=== PATIENT | male | born 1990 | race American Indian/Alaskan Native ===

== ENCOUNTER 2021-03-01 07:05 | Inpatient (IN) | payer OTHER ==
--- NOTE | 2021-03-01 07:38 | Emergency Department Report ---
ED Male HPI - General Stated complaint: groin pain Time Seen by Provider: 03/01/21 07:15 Source: patient Mode of arrival: Ambulatory Limitations: No Limitations - History of Present Illness Initial comments: 30-year-old male presents to the ER today with complaints of severe groin pain. Patient states that he thought he may have pulled a muscle about 2 weeks ago when he was moving something at work. He initially felt pain between his base of the penis and his rectum. He states since then the pain has gradually been getting worse to the point now that he is having difficulty ambulating and is unable to sit. He reports swelling, but is unable to tell if there is any b ruising or redness. He states that he has been having difficulty urinating where he has been having urgency, dysuria and decreased urinary output. He denies any hematuria. He denies any testicular pain or apparent testicular swelling. He denies any associate abdominal pain. He reports intermittent nausea but no vomiting. He does report constipation, he states that he has not had a bowel movement in 1 week. He states that he is not typically constipated typically has a bowel movement 1-2 times per day. He denies any fever at home or chills. Patient is obese, he denies any other significant past medical history. MD Complaint: groin pain -: week(s) (2) - Related Data Allergies Allergy/AdvReac Type Severity Reaction Status Date / Time No Known Allergies Allergy Unverified 03/01/21 07:42 ED Review of Systems ROS: Stated complaint: groin pain Other details as noted in HPI Comment: All other systems reviewed and negative Constitutional: denies: chills, fever ENT: denies: ear pain, throat pain Respiratory: denies: cough, shortness of breath, wheezing Cardiovascular: denies: chest pain, palpitations Gastrointestinal: nausea, constipation. denies: abdominal pain, vomiting, diarrhea, hematemesis, melena, hematochezia Genitourinary: urgency, dysuria, other (Groin pain/perineal pain). denies: frequency, hematuria, discharge, testicular pain Musculoskeletal: denies: back pain, joint swelling, arthralgia Skin: denies: rash, lesions, change in color, change in hair/nails, pruritus Neurological: denies: headache, weakness, numbness, paresthesias, confusion, abnormal gait, vertigo Psychiatric: denies: anxiety, depression, auditory hallucinations, visual hallucinations, homicidal thoughts, suicidal thoughts Hematological/Lymphatic: denies: easy bleeding, easy bruising ED Physical Exam - General General appearance: alert, in distress, obese - Head Head exam: Present: atraumatic, normocephalic, normal inspection - Eye Eye exam: Present: normal appearance, PERRL, EOMI Pupils: Present: normal accommodation - Neck Neck exam: Present: normal inspection, full ROM - Respiratory Respiratory exam: Present: normal lung sounds bilaterally. Absent: respiratory distress, wheezes, rales, rhonchi - Cardiovascular Cardiovascular Exam: Present: normal rhythm, tachycardia, normal heart sounds - GI/Abdominal GI/Abdominal exam: Present: soft. Absent: distended, tenderness, guarding, rebound, rigid - Rectal Rectal exam: Present: normal inspection, normal rectal tone, tenderness (Severe pain on MANNY, but no apparent mass, fluctuance or induration), other (Furniture Delivery Driver present). Absent: bloody stool, fecal impaction, hemorrhoids - exam: Present: normal inspection, other (Patient has significant tenderness to deep palpation in the perineal area, area is warm, slight erythema noted at the base of the buttocks, and around the perineal area, but no apparent induration or fluctuance.). Absent: testicular tenderness, urethral discharge, scrotal swelling, circumcision External exam: Absent: erythema, swelling, lesions, lacerations, ecchymosis, bleeding - Neurological Exam Neurological exam: Present: alert, oriented X3, CN II-XII intact, normal gait - Psychiatric Psychiatric exam: Present: normal affect, normal mood - Skin Skin exam: Present: intact ED Course Vital Signs 03/01/21 03/01/21 03/01/21 07:16 10:36 11:40 Temperature 100.4 F H Pulse Rate 128 H 92 H Respiratory 22 14 22 Rate Blood Pressure 157/94 O2 Sat by Pulse 95 98 Oximetry 03/01/21 03/01/21 03/01/21 11:46 12:00 12:16 Temperature Pulse Rate 92 H 91 H 88 Respiratory 21 23 22 Rate Blood Pressure 124/79 134/84 134/84 O2 Sat by Pulse 99 98 96 Oximetry 03/01/21 03/01/21 03/01/21 12:30 12:46 13:00 Temperature Pulse Rate 90 92 H 104 H Respiratory 21 21 11 L Rate Blood Pressure 134/84 O2 Sat by Pulse 97 96 98 Oximetry 03/01/21 03/01/21 03/01/21 13:16 13:30 13:46 Temperature Pulse Rate 92 H 89 99 H Respiratory 24 23 13 Rate Blood Pressure 162/100 162/100 O2 Sat by Pulse 97 95 96 Oximetry 03/01/21 13:51 Temperature 100.2 F H Pulse Rate Respiratory Rate Blood Pressure O2 Sat by Pulse Oximetry ED Medical Decision Making - Lab Data Result diagrams: 03/01/21 07:47 03/01/21 07:47 - Radiology Data Radiology results: report reviewed Patient: JOSE WEBSTER MR#: [id number] 0 : 1990 Acct:[id number] Age/Sex: 30 / M ADM Date: 03/01/21 Loc: ED Attending Dr: Ordering Physician: RADHA GILL Date of Service: 03/01/21 Procedure(s): CT abdomen pelvis w con Accession Number(s): [id number] cc: RADHA GILL CT ABDOMEN AND PELVIS WITH CONTRAST HISTORY: Severe perineal pain/cellulitis/infection omni 300 100ml . COMPARISON: None. TECHNIQUE: Helical CT images of the abdomen and pelvis were obtained following administration of intravenous contrast. Sagittal and coronal reformatted images were reviewed. All CT scans at this location are performed using CT dose reduction for ALARA by means of automated exposure control. CONTRAST: 100 ml of intravenous contrast administered. FINDINGS: Abdomen/pelvis: The entire perineum is not included in this exam which limits full evaluation. On the most inferior images, there is a fluid collection with subtle peripheral enhancement just below the prostate gland measuring 4.0 x 4.4 x 3.4 cm. It is unclear if this involves the inferior portion of the prostate gland. It appears to overlie the tract of the urethra. This presumably represents an abscess. There is no evidence for soft tissue gas in the perineum although the lower perineum is not included on this exam. The liver, biliary system, pancreas, spleen, kidneys, adrenal glands, vascular structures, bowel loops, appendix and bladder are unremarkable. Lungs/bones: No significant abnormality. IMPRESSION: 4.0 x 4.4 x 3.4 cm fluid collection in the midline perineum with close association to the base of the prostate gland and urethra which presumably represents an abscess. Signer Name: Alex Hair Jr, MD Signed: 03/01/2021 10:12 AM Workstation Name: [id number] Transcribed By: TTR Dictated By: ALEX HAIR JR, MD Electronically Authenticated By: ALEX HAIR JR, MD Signed Date/Time: 03/01/21 1012 DD/ 1008 TD/TT: - Medical Decision Making 1049: Reviewed --CBC shows mild leukocytosis with a white count of 12, but o therwise unremarkable. Lactic acid was normal. Blood cultures pending. CMP shows mild hyperglycemia of [address] abdomen pelvis with IV contrast shows - 4.0 x 4.4 x 3.4 cm fluid collection in the midline perineum with close association to the base of the prostate gland and urethra which presumably represents an abscess. Discussed case with Dr Sharp - Recommend consulting general surgeon first Patient reports that his pain is better after IV morphine, and he is currently getting his IV fluids and antibiotics; discussed all results with patient, and concerning findings on CT abdomen pelvis and informed patient that we will consult general surgeon to determine course of action. 1100: Discussed case with Dr. Mi, general surgeon on-call, given that absce ss is a close patient urethra and prostate, he recommend consulting urology first but he is willing to co-consult if needed. 1108: Called placed to Dr Brambila's group. Nurse at their office stated she will notify one of the doctors and will call us back. 1215: Discussed case with Dr. Baldwin, urologist on all for [facility], reviewed case including lab results and CT results in detail with him. He stated that it is not something that needs emergent drainage, and urine culture and recommend antibiotic treatment. 1232: Discussed case with Dr Fernández, Hospitalist, for admission. Discussed reason and plan for admission with patient. He expressed understanding of instructions and agreed with plan. Pt currently stable. Critical care attestation.: If time is entered above; I have spent that time in minutes in the direct care of this critically ill patient, excluding procedure time. ED Disposition Clinical Impression: Perineal abscess Disposition: [facility] Is pt being admited?: No Condition: Stable Referrals: PRIMARY CARE, [Primary Care Provider] - 3-5 Days
[2021-03-01] MEDS ORDERED: SODIUM CHLORIDE 0.9% 1000 ML IV SOLN IV ONE (07:44)
[2021-03-01] MEDS ORDERED: PIPERACIL/TAZOBACTA 4.5/NS 100 4.5 GM/100 ML VIAL IV ONE (07:44)
[2021-03-01] MEDS ORDERED: VANCOMYCIN 1,000 MG in SODIUM CHLORIDE 0.9% 500 ML 500 ML IV ONE (07:44)
[2021-03-01] MEDS ORDERED: ACETAMINOPHEN 500 MG TAB PO ONE (07:47)
[2021-03-01] MEDS ORDERED: MORPHINE 4 MG/1 ML INJ IV ONE (07:47)
[2021-03-01] MEDS ORDERED: ONDANSETRON 4 MG/2 ML INJ IV ONE (07:47)
[2021-03-01] MEDS ORDERED: VANCOMYCIN PHARMACY TO DOSE IV SCH ×2 (08:00→15:00)
[2021-03-01 08:13] LABS: Hematocrit 41.3 % (35.5-45.6); Hemoglobin 13.9 gm/dl (11.8-15.2); Mean Corpuscular HGB Conc 34 % (32-34); Mean Corpuscular Volume 89 fl (84-94); Platelet Count 289 K/mm3 (140-440); Red Blood Count 4.66 M/mm3 (3.65-5.03)
[2021-03-01 08:27] LABS: Bacteria,Urine 1+ /HPF (Negative); Bilirubin,Urine NEG (Negative); Blood,Urine MOD (Negative); Color,Urine Yellow (Yellow); Mucus,Urine FEW /HPF
[2021-03-01 08:37] LABS: Alanine Aminotransferase 26 units/L (7-56); Albumin 3.8 g/dL (3.9-5); BUN/Creatinine Ratio 11; Blood Urea Nitrogen 12 mg/dL (9-20); Calcium 9.2 mg/dL (8.4-10.2); Hemolysis Index 32
[2021-03-01] MEDS ORDERED: VANCOMYCIN/NS 1 GM/250 ML 1 GM/250 ML BAG IV NR (09:00)
[2021-03-01] MEDS ORDERED: VANCOMYCIN 2,000 MG in SODIUM CHLORIDE 0.9% 500 ML 500 ML IV ONE (09:00)
--- NOTE | 2021-03-01 10:16 | Cat Scan Report ---
CT ABDOMEN AND PELVIS WITH CONTRAST HISTORY: Severe perineal pain/cellulitis/infection omni 300 100ml . COMPARISON: None. TECHNIQUE: Helical CT images of the abdomen and pelvis were obtained following administration of intr avenous contrast. Sagittal and coronal reformatted images were reviewed. All CT scans at this [facility] are performed using CT dose reduction for ALARA by means of automated exposure control. CONTRAST: 100 ml of intravenous contrast administered. FINDINGS: Abdomen/pelvis: The entire perineum is not included in this exam which limits full evaluation. On th e most inferior images, there is a fluid collection with subtle peripheral enhancement just below the prostate gland measuring 4.0 x 4.4 x 3.4 cm. It is unclear if this involves the inferior portion of the prostate gland. It appears to overlie the tract of the urethra. This presumably represents an abs cess. There is no evidence for soft tissue gas in the perineum although the lower perineum is not inc luded on this exam. The liver, biliary system, pancreas, spleen, kidneys, adrenal glands, vascular structures, bowel loop s, appendix and bladder are unremarkable. Lungs/bones: No significant abnormality. IMPRESSION: 4.0 x 4.4 x 3.4 cm fluid collection in the midline perineum with close association to the base of the prostate gland and urethra which presumably represents an abscess. Signer Name: Alex Hair Jr, MD Signed: 03/01/2021 10:12 AM Workstation Name: [id number]
[2021-03-01] MEDS ORDERED: ALBUTEROL 2.5 MG/3 ML NEBU IH PRN (14:52)
[2021-03-01] MEDS ORDERED: ONDANSETRON 4 MG/2 ML INJ IV PRN (14:52)
[2021-03-01 14:56] LABS: Band Neutrophils # (Manual) 0.1 K/mm3; Total Cells Counted 100
[2021-03-01 14:57] LABS: Hypochromasia 1+; Platelet Estimate Consistent w Auto
--- NOTE | 2021-03-01 15:31 | History and Physical Report ---
History of Present Illness Chief complaint: I think I pulled something History of present illness: 30 YO Male with Super Morbid Obesity, Obesity Hypoventilation Syndrome presents to ED for evaluation. Patient reports I think I pulled something". Patient states that he has experienced pain at the base of his penis extending toward his rectum over the past 2 weeks with persistent and worsening symptoms over the same timeframe. Patient states that he was walking while carrying heavy packages and experienced a sudden onset of pain at the base of his penis. Patient transported to [facility] via private vehicle for further care and evaluation of the aforementioned symptoms. The patient was seen and evaluated in the em ergency department. All lab and imaging studies reviewed. Patient underwent CT scan of the abdomen and pelvis and was found to have a perineal abscess, urinary tract infection complicated by systemic inflammatory response syndrome. Surgical team consulted in ED. Urology team consulted in ED. Patient admitted to medical floor and initiated on IV antibiotic therapy. Patient denies fever, chills, chest pain, palpitation, shortness of breath, trauma, or known ill contacts, or known exposure to COVID-19. No prior admission for review. No medication listed at time of admission for reconciliation. Past History Past Medical History: other (See HPI) Past Surgical History: No surgical history, Other (Reviewed) Social history: single. denies: smoking, alcohol abuse, prescription drug abuse Family history: hypertension Medications and Allergies Allergies Allergy/AdvReac Type Severity Reaction Status Date / Time No Known Allergies Allergy Unverified 03/01/21 07:42 Active Meds: Active Medications Acetaminophen (Acetaminophen 325 Mg Tab) 650 mg PO Q4H PRN PRN Reason: Pain MILD(1-3)/Fever >100.5/ARREDONDO Albuterol (Albuterol 2.5 Mg/3 Ml Nebu) 2.5 mg IH Q4HRT PRN PRN Reason: Shortness Of Breath Hydromorphone HCl (Hydromorphone 1 Mg/1 Ml Inj) 0.5 mg IV Q12H PRN PRN Reason: Pain , Severe (7-10) Ceftriaxone Sodium (Rocephin/Ns 1 Gm/50 Ml) 1 gm in 50 mls @ 100 mls/hr IV Q12H MICKIE; Protocol Vancomycin HCl 1,500 mg/ (Sodium Chloride) 530 mls @ 265 mls/hr IV Q8H MICKIE Ondansetron HCl (Ondansetron 4 Mg/2 Ml Inj) 4 mg IV Q8H PRN PRN Reason: Nausea And Vomiting Oxycodone/Acetaminophen (Oxycodone /Acetaminophen 5-325mg Tab) 1 tab PO Q12H PRN PRN Reason: Pain, Moderate (4-6) Sodium Chloride (Sodium Chloride 0.9% 10 Ml Flush Syringe) 10 ml IV BID MICKEI Sodium Chloride (Sodium Chloride 0.9% 10 Ml Flush Syringe) 10 ml IV PRN PRN PRN Reason: LINE FLUSH Review of Systems Constitutional: no weight loss, no weight gain, no fever, no chills Ears, nose, mouth and throat: no ear pain, no ear discharge, no tinnitis, no nasal congestion Cardiovascular: no chest pain, no palpitations, no rapid/irregular heart beat, no edema, no lightheadedness Respiratory: no cough, no cough with sputum, no excessive sputum, no hemoptysis Gastrointestinal: no abdominal pain, no nausea, no vomiting, no diarrhea, no constipation Genitourinary Male: other (Pain at the base of penis) Rectal: no pain, no incontinence, no bleeding Musculoskeletal: no neck stiffness, no arm numbness/tingling, no low back pain, no shooting leg pain, no redness of joints Integumentary: no rash, no pruritis, no redness, no wounds, no jaundice Neurological: no head injury, no transient paralysis, no weakness, no parathesias, no tingling, no syncope Psychiatric: no anxiety, no memory loss, no insomnia, no hypersomnia Endocrine: no cold intolerance, no polyphagia, no excessive thirst, no polyuria, no nocturia, no flushing Hematologic/Lymphatic: no easy bruising, no lymphedema Allergic/Immunologic: no urticaria, no allergic rhinitis, no wheezing, no anaphylaxis Exam - Constitutional Vitals: Temp Pulse Resp BP Pulse Ox 100.2 F H 99 H 13 162/100 96 03/01/21 13:51 03/01/21 13:46 03/01/21 13:46 03/01/21 13:46 03/01/21 13:46 General appearance: Present: mild distress, obese - EENT Eyes: Present: PERRL ENT: hearing intact, clear oral mucosa - Neck Neck: Present: supple, normal ROM - Respiratory Respiratory effort: normal Respiratory: bilateral: CTA - Cardiovascular Heart Sounds: Present: S1 & S2. Absent: rub, click - Extremities Extremities: pulses symmetrical, No edema Peripheral Pulses: within normal limits - Abdominal General gastrointestinal: Present: soft, non-tender, non-distended, normal bowel sounds Male genitourinary: Present: normal - Integumentary Integumentary: Present: clear, warm, dry - Musculoskeletal Musculoskeletal: gait normal, strength equal bilaterally - Psychiatric Psychiatric: appropriate mood/affect, intact judgment & insight - Neurologic Neurologic: CNII-XII intact, moves all extremities Results - Labs CBC & Chem 7: 03/01/21 07:47 03/01/21 07:47 Labs: Abnormal lab results 03/01/21 03/01/21 03/01/21 Range/Units 07:47 07:47 07:55 WBC 12.9 H (4.5-11.0) K/mm3 RDW 13.0 L (13.2-15.2) % Seg Neutrophils # Man 8.4 H (1.8-7.7) K/mm3 Monocytes # (Manual) 0.9 H (0.0-0.8) K/mm3 Sodium 134 L (137-145) mmol/L Glucose 130 H (75-100) mg/dL Albumin 3.8 L (3.9-5) g/dL Urine WBC (Auto) 73.0 H (0.0-6.0) /HPF U Epithel Cells (Auto) 26.0 H (0-13.0) /HPF Assessment and Plan - Patient Problems (1) Perineal abscess Current Visit: Yes Status: Acute Plan to address problem: Surgery team consulted, urology team consulted. No surgical intervention at this time as per urology team. IV antibiotic therapy, further care and ev aluation as per urology team. (2) Obesity hypoventilation syndrome Current Visit: Yes Status: Acute Plan to address problem: Balanced diet, increase physical activity at discharge, outpatient pulmonary fo llow-up for sleep study, outpatient bariatric surgery follow-up. (3) UTI (urinary tract infection) Current Visit: Yes Status: Acute Qualifiers: Encounter type: initial encounter Plan to address problem: CBC, urinalysis, IV antibiotic therapy. (4) Systemic inflammatory response syndrome Current Visit: Yes Status: Acute Plan to address problem: CBC, CMP, urinalysis, IV antibiotic therapy, repeat CBC in a.m. (5) DVT prophylaxis Current Visit: Yes Status: Acute Plan to address problem: SCDs bilateral lower extremities while in bed, patient is ambulatory
[2021-03-01] MEDS: VANCOMYCIN 1,500 MG in SODIUM CHLORIDE 0.9% 500 ML 500 ML IV SCH (16:45)
[2021-03-01] MEDS: HYDROmorphone 1 MG/1 ML INJ IV PRN (17:06)
--- NOTE | 2021-03-01 17:31 | Consultation ---
History of Present Illness Consult date: 03/01/21 - History of present illness History of present illness: 30 yo male with a 2 week h/o slow progressive worsening of perineal pain. Past History Past Medical History: other (See HPI) Past Surgical History: No surgical history, Other (Reviewed) Social history: single. denies: smoking, alcohol abuse, prescription drug abuse Family history: hypertension Medications and Allergies Allergies Allergy/AdvReac Type Severity Reaction Status Date / Time No Known Allergies Allergy Unverified 03/01/21 07:42 Active Meds: Active Medications Acetaminophen (Acetaminophen 325 Mg Tab) 650 mg PO Q4H PRN PRN Reason: Pain MILD(1-3)/Fever >100.5/ARREDONDO Albuterol (Albuterol 2.5 Mg/3 Ml Nebu) 2.5 mg IH Q4HRT PRN PRN Reason: Shortness Of Breath Hydromorphone HCl (Hydromorphone 1 Mg/1 Ml Inj) 0.5 mg IV Q12H PRN PRN Reason: Pain , Severe (7-10) Last Admin: 03/01/21 17:06 Dose: 0.5 mg Documented by: Ceftriaxone Sodium (Rocephin/Ns 1 Gm/50 Ml) 1 gm in 50 mls @ 100 mls/hr IV Q12H MICKIE; Protocol Vancomycin HCl 1,500 mg/ (Sodium Chloride) 530 mls @ 265 mls/hr IV Q8H MICKIE Ondansetron HCl (Ondansetron 4 Mg/2 Ml Inj) 4 mg IV Q8H PRN PRN Reason: Nausea And Vomiting Oxycodone/Acetaminophen (Oxycodone /Acetaminophen 5-325mg Tab) 1 tab PO Q12H PRN PRN Reason: Pain, Moderate (4-6) Sodium Chloride (Sodium Chloride 0.9% 10 Ml Flush Syringe) 10 ml IV BID MICKIE Sodium Chloride (Sodium Chloride 0.9% 10 Ml Flush Syringe) 10 ml IV PRN PRN PRN Reason: LINE FLUSH Review of Systems All systems: negative (none) Exam Vital Signs Temp Pulse Resp BP Pulse Ox 100.4 F H 128 H 22 157/94 95 03/01/21 07:16 03/01/21 07:16 03/01/21 07:16 03/01/21 07:16 03/01/21 07:16 - General physical appearance Positive: well developed, well nourished, no distress - Eyes Positive: PERRL, normal occular movement - ENT Positive: normal pinna, normal nares, normal mucosa, no hearing loss, no congestion - Neck Positive: no masses, no bruits, trachea midline, no venous distension - Respiratory Positive: normal expansion, normal respiratory effort, clear to auscultation - Cardiovascular Rhythm: regular Heart Sounds: Present: S1 & S2. Absent: rub, click - Extremities Extremities: no ischemia, pulses symmetrical, No edema - Breasts Breasts: normal, no mass, no skin changes - Abdomen Abdomen: Present: soft, bowel sounds normal. Absent: tender, distended Hernia: none - Genitourinary Male Genitourinary: normal Female Genitourinary: normal - Rectum Rectum: other (Pt is somewhat tender in the perineal area but there is no evidence of an underlying abscess. No cellulitis or induration either.) - Integumentary no rash, no growths, no abnormal pigmentation - Neurologic Neurologic: alert and oriented to time, place and person, motor strength and sensation are grossly intact - Musculoskeletal normal gait, normal posture - Psychiatric Psychiatric: appropriate mood/affect, intact judgment & insight Results - Labs 03/01/21 07:47 03/01/21 07:47 Abnormal lab results 03/01/21 03/01/21 03/01/21 Range/Units 07:47 07:47 07:55 WBC 12.9 H (4.5-11.0) K/mm3 RDW 13.0 L (13.2-15.2) % Seg Neutrophils # Man 8.4 H (1.8-7.7) K/mm3 Monocytes # (Manual) 0.9 H (0.0-0.8) K/mm3 Sodium 134 L (137-145) mmol/L Glucose 130 H (75-100) mg/dL Albumin 3.8 L (3.9-5) g/dL Urine WBC (Auto) 73.0 H (0.0-6.0) /HPF U Epithel Cells (Auto) 26.0 H (0-13.0) /HPF Diabetes panel 03/01/21 Range/Units 07:47 Sodium 134 L (137-145) mmol/L Potassium 4.1 (3.6-5.0) mmol/L Chloride 98.4 (98-107) mmol/L Carbon Dioxide 24 (22-30) mmol/L BUN 12 (9-20) mg/dL Creatinine 1.1 (0.8-1.3) mg/dL Glucose 130 H (75-100) mg/dL Calcium 9.2 (8.4-10.2) mg/dL AST 25 (5-40) units/L ALT 26 (7-56) units/L Alkaline Phosphatase 107 (35-129) units/L Total Protein 7.9 (6.3-8.2) g/dL Albumin 3.8 L (3.9-5) g/dL Calcium panel 03/01/21 Range/Units 07:47 Calcium 9.2 (8.4-10.2) mg/dL Albumin 3.8 L (3.9-5) g/dL Pituitary panel 03/01/21 Range/Units 07:47 Sodium 134 L (137-145) mmol/L Potassium 4.1 (3.6-5.0) mmol/L Chloride 98.4 (98-107) mmol/L Carbon Dioxide 24 (22-30) mmol/L BUN 12 (9-20) mg/dL Creatinine 1.1 (0.8-1.3) mg/dL Glucose 130 H (75-100) mg/dL Calcium 9.2 (8.4-10.2) mg/dL Adrenal panel 03/01/21 Range/Units 07:47 Sodium 134 L (137-145) mmol/L Potassium 4.1 (3.6-5.0) mmol/L Chloride 98.4 (98-107) mmol/L Carbon Dioxide 24 (22-30) mmol/L BUN 12 (9-20) mg/dL Creatinine 1.1 (0.8-1.3) mg/dL Glucose 130 H (75-100) mg/dL Calcium 9.2 (8.4-10.2) mg/dL Total Bilirubin 0.80 (0.1-1.2) mg/dL AST 25 (5-40) units/L ALT 26 (7-56) units/L Alkaline Phosphatase 107 (35-129) units/L Total Protein 7.9 (6.3-8.2) g/dL Albumin 3.8 L (3.9-5) g/dL - Imaging CT scan - abdomen: report reviewed CT scan - pelvis: report reviewed Assessment and Plan - Patient Problems (1) Prostatic abscess Current Visit: Yes Status: Acute Plan to address problem: 1) Urological consult 2) If a urological consult cannot be obtained in this facility, I recommend that the pt be transferred to a facility where urological consultation can be obtained. 3) Broad spectrum IV antibiotics 4) Urine C&S
[2021-03-01] MEDS: cefTRIAXone/NS 1 GM/50 ML 1 GM/50 ML BAG IV SCH (20:22)
[2021-03-01] MEDS: oxyCODONE /ACETAMINOPHEN 5-325MG TAB PO PRN (20:29)
[2021-03-02] MEDS: VANCOMYCIN 1,500 MG in SODIUM CHLORIDE 0.9% 500 ML 500 ML IV SCH ×3 (01:15→21:05)
[2021-03-02] MEDS: HYDROmorphone 1 MG/1 ML INJ IV PRN ×3 (02:21→18:05)
[2021-03-02] MEDS: cefTRIAXone/NS 1 GM/50 ML 1 GM/50 ML BAG IV SCH (06:25)
[2021-03-02 10:22] LABS: Basophils % (Auto) 0.2 % (0.0-1.8); Eosinophils # (Auto) 0.1 K/mm3 (0.0-0.4); Hematocrit 33.5 % (35.5-45.6); Hemoglobin 11.2 gm/dl (11.8-15.2); Lymphocytes # (Auto) 1.7 K/mm3 (1.2-5.4); Lymphocytes % (Auto) 11.9 % (13.4-35.0); Mean Corpuscular HGB Conc 34 % (32-34); Mean Corpuscular Volume 90 fl (84-94); Monocytes # (Auto) 1.5 K/mm3 (0.0-0.8); Monocytes % (Auto) 10.8 % (0.0-7.3); Platelet Count 310 K/mm3 (140-440); Red Blood Count 3.73 M/mm3 (3.65-5.03); Red Cell Distribution Width 13.2 % (13.2-15.2)
[2021-03-02 10:44] LABS: BUN/Creatinine Ratio 8; Blood Urea Nitrogen 8 mg/dL (9-20); Calcium 8.5 mg/dL (8.4-10.2); Hemolysis Index 6
[2021-03-02] MEDS: ACETAMINOPHEN 325 MG TAB PO PRN ×3 (11:27→22:35)
--- NOTE | 2021-03-02 12:24 | Consultation ---
History of Present Illness - Reason for Consult Consult date: 03/02/21 perineal abscess Requesting physician: CARMELO BENJAMIN - History of Present Illness 30-year-old male with extreme morbid obesity, obesity hypoventilation syndrome was admitted to the hospital with pain in his groin and perineal region x [address] scan revealed a perineal abscess and possible prostatic abscess. General surgery and urology have been consulted. Infectious diseases was consulted for antibiotic management. Low-grade fever, leukocytosis present. Denies MSM behavior, no history of STDs. Heterosexual. Denies any similar infections in the past. Review of Systems: As per above Past History Past Medical History: other (See HPI) Past Surgical History: No surgical history, Other (Reviewed) Social history: single. denies: smoking, alcohol abuse, prescription drug abuse Family history: hypertension Medications and Allergies Allergies Allergy/AdvReac Type Severity Reaction Status Date / Time No Known Allergies Allergy Unverified 03/01/21 07:42 Active Meds: Active Medications Acetaminophen (Acetaminophen 325 Mg Tab) 650 mg PO Q4H PRN PRN Reason: Pain MILD(1-3)/Fever >100.5/ARREDONDO Last Admin: 03/02/21 11:27 Dose: 650 mg Documented by: Albuterol (Albuterol 2.5 Mg/3 Ml Nebu) 2.5 mg IH Q4HRT PRN PRN Reason: Shortness Of Breath Hydromorphone HCl (Hydromorphone 1 Mg/1 Ml Inj) 0.5 mg IV Q12H PRN PRN Reason: Pain , Severe (7-10) Last Admin: 03/02/21 11:39 Dose: 0.5 mg Documented by: Ceftriaxone Sodium (Rocephin/Ns 2 Gm/100 Ml) 2 gm in 100 mls @ 200 mls/hr IV Q24H MICKIE Vancomycin HCl 1,500 mg/ (Sodium Chloride) 530 mls @ 265 mls/hr IV Q8HR MICKIE Ondansetron HCl (Ondansetron 4 Mg/2 Ml Inj) 4 mg IV Q8H PRN PRN Reason: Nausea And Vomiting Last Admin: 03/01/21 20:29 Dose: 4 mg Documented by: Oxycodone/Acetaminophen (Oxycodone /Acetaminophen 5-325mg Tab) 1 tab PO Q12H PRN PRN Reason: Pain, Moderate (4-6) Last Admin: 03/01/21 20:29 Dose: 1 tab Documented by: Sodium Chloride (Sodium Chloride 0.9% 10 Ml Flush Syringe) 10 ml IV BID MICKIE Last Admin: 03/02/21 11:29 Dose: 10 ml Documented by: Sodium Chloride (Sodium Chloride 0.9% 10 Ml Flush Syringe) 10 ml IV PRN PRN PRN Reason: LINE FLUSH Physical Examination - Physical Exam Narrative exam: Physical Exam: Constitutional: Alert, cooperative. No acute distress. Extreme morbid obesity Head, Ears, Nose: Normocephalic, atraumatic. External ears, nose normal Eyes: Conjunctivae/corneas clear. No icterus. No ptosis. Neck: Supple, no meningeal signs Cardiovascular: S1, S2 + Respiratory: Good air entry, clear to auscultation bilaterally GI: Soft, non-tender; bowel sounds normal. No peritoneal signs. Groin region, posterior to scrotal region is indurated area with slight purulence and foul smell Musculoskeletal: No pedal edema, no cyanosis. Skin: No rash or abscess Hem/Lymphatic: No palpable cervical or supraclavicular nodes. No lymphangitis Psych: Mood ok. Affect normal Neurological: Awake, alert, oriented. No gross abnormality - Constitutional Vitals: Vital Signs Temp Pulse Resp BP Pulse Ox 100.6 F H 104 H 18 157/88 96 03/02/21 04:26 03/02/21 04:26 03/02/21 04:26 03/02/21 04:26 03/02/21 04:26 Temperature -Last 24 Hours Temperature 100.6 F Temperature 98.1 F Temperature 99.8 F Temperature 100.2 F Results - Labs CBC & Chem 7: 03/02/21 10:02 03/02/21 10:02 Labs: Abnormal lab results 03/01/21 03/02/21 03/02/21 Range/Units 07:47 10: 10:02 WBC 14.0 H (4.5-11.0) K/mm3 Hgb 11.2 L (11.8-15.2) gm/dl Hct 33.5 L D (35.5-45.6) % Lymph % (Auto) 11.9 L (13.4-35.0) % [place] % (Auto) 10.8 H (0.0-7.3) % [place] # (Auto) 1.5 H (0.0-0.8) K/mm3 Seg Neutrophils % 76.1 H (40.0-70.0) % Seg Neutrophils # 10.6 H (1.8-7.7) K/mm3 Seg Neutrophils # Man 8.4 H (1.8-7.7) K/mm3 Monocytes # (Manual) 0.9 H (0.0-0.8) K/mm3 Sodium 136 L (137-145) mmol/L BUN 8 L (9-20) mg/dL Glucose 132 H (75-100) mg/dL - Imaging and Cardiology CT scan - pelvis: report reviewed, image reviewed Assessment and Plan Cultures: 03/01/2021 blood culture: No growth A/P: 30-year-old male with extreme morbid obesity, obesity hypoventilation syndrome: #Sepsis secondary to perineal abscess, also question of possible prostatic abscess: Perineal induration + with scant drainage. General surgery and urology consulted. Denies MSM behavior, no history of STDs. Heterosexual. Denies any similar infections in the past. #UTI: UA showed pyuria. #Extreme morbid obesity Recs: -Empiric cefepime, Flagyl and vancomycin -Follow-up urology consult for drainage -f/u cultures Heath Banuelos MD, FACP [facility], [facility] O: [phone] F: [phone]
[2021-03-02] MEDS: metroNIDAZOLE/NS 500 MG/100 ML 500 MG/100 ML BAG IV SCH ×3 (13:30→21:04)
--- NOTE | 2021-03-02 15:01 | Progress Note ---
Assessment and Plan Assessment and plan: 30 YO Male with Super Morbid Obesity, Obesity Hypoventilation Syndrome presents to ED for evaluation. Patient reports I think I pulled something". Patient states that he has experienced pain at the base of his penis extending toward his rectum over the past 2 weeks with persistent and worsening symptoms over the same timeframe. Patient states that he was walking while carrying heavy packages and experienced a sudden onset of pain at the base of his penis. Patient transported to [facility] via private vehicle for further care and evaluation of the aforementioned symptoms. The patient was seen and evaluated in the emergency department. All lab and imaging studies reviewed. Patient underwent CT scan of the abdomen and pelvis and was found to have a perineal abscess, urinary tract infection complicated by systemic inflammatory response syndrome. Surgical team consulted in ED. Urology team consulted in ED. Patient admitted to medical floor and initiated on IV antibiotic therapy. Patient denies fever, chills, chest pain, palpitation, shortness of breath, trauma, or known ill contacts, or known exposure to COVID-19. No prior admission for review. No medication listed at time of admission for reconciliation. Past History Past Medical History: other (See HPI) Past Surgical History: No surgical history, Other (Reviewed) Social history: single. denies: smoking, alcohol abuse, prescription drug abuse (1) Perineal abscess Current Visit: Yes Status: Acute Plan to address problem: Surgery team consulted, urology team consulted. No surgical intervention at this time as per urology team. IV antibiotic therapy, further care and evaluation as per urology team. (2) Obesity hypoventilation syndrome Current Visit: Yes Status: Acute Plan to address problem: Balanced diet, increase physical activity at discharge, outpatient pulmonary follow-up for sleep study, outpatient bariatric surgery follow-up. (3) UTI (urinary tract infection) Current Visit: Yes Status: Acute Qualifiers: Encounter type: initial encounter Plan to address problem: CBC, urinalysis, IV antibiotic therapy. (4) Systemic inflammatory response syndrome Current Visit: Yes Status: Acute Plan to address problem: CBC, CMP, urinalysis, IV antibiotic therapy, repeat CBC in a.m. (5) DVT prophylaxis Current Visit: Yes Status: Acute Plan to address problem: SCDs bilateral lower extremities while in bed, patient is ambulatory 03/02: Patient this morning was found on CPAP. I am not sure if this is secondar y to his obesity. Nevertheless we will obtain a chest x-ray will give him a dose of Lasix as he still does have some edematous area. He has an elevated leukocytosis stable despite antibiotics I will consult ID to follow on his management and they already saw him today. We are awaiting urology evaluation of also reached out to them as they are lubrication supervisor counterpart was discussed with based on ER documentation. Surgery input is noted we will await urology evaluation for further decision making for now continue antibiotic therapy. History Interval history: Patient seen and examined this morning. Is on CPAP at this a.m. says he does not use a CPAP at home although denies shortness of breath. Hospitalist Physical - Physical exam Narrative exam: VITAL SIGNS: Reviewed. GENERAL: The patient appears normally developed, morbidly obese vital signs as documented. HEAD: No signs of head trauma. EYES: Pupils are equal. Extraocular motions intact. EARS: Hearing grossly intact. MOUTH: Oropharynx is normal. NECK: No adenopathy, no JVD. CHEST: Chest with clear breath sounds bilaterally. No wheezes, rales, or rhonchi. CARDIAC: Regular rate and rhythm. S1 and S2, without murmurs, gallops, or rubs. VASCULAR: No Edema. Peripheral pulses normal and equal in all extremities. ABDOMEN: Soft, non tender and non distended. No rebound or guarding, and no masses palpated. Bowel Sounds normal. MUSCULOSKELETAL: Good range of motion of all major joints. Extremities without clubbing, cyanosis or edema. exam: Present: normal inspection, other (Patient has significant tenderness to deep palpation in the perineal area, area is warm, slight erythema noted at the base of the buttocks, and around the perineal area, but no apparent indur ation or fluctuance.). Absent: testicular tenderness, urethral discharge, scrotal swelling, circumcision NEUROLOGIC EXAM: Alert and oriented x 3 No focal sensory or strength deficits. Speech normal. Follows commands. PSYCHIATRIC: Mood normal. SKIN: detail exam as documented in skin assessment - Constitutional Vitals: Temp Pulse Resp BP Pulse Ox 100.6 F H 104 H 18 157/88 97 03/02/21 04:26 03/02/21 04:26 03/02/21 04:26 03/02/21 04:26 03/02/21 10:00 General appearance: Present: mild distress, obese Results - Labs CBC & Chem 7: 03/02/21 10:02 03/02/21 10:02 Labs: Laboratory Last Values WBC 14.0 K/mm3 (4.5-11.0) H 03/02/21 10:02 RBC 3.73 M/mm3 (3.65-5.03) 03/02/21 10:02 Hgb 11.2 gm/dl (11.8-15.2) L 03/02/21 10:02 Hct 33.5 % (35.5-45.6) L D 03/02/21 10:02 MCV 90 fl (84-94) 03/02/21 10:02 MCH 30 pg (28-32) 03/02/21 10:02 MCHC 34 % (32-34) 03/02/21 10:02 RDW 13.2 % (13.2-15.2) 03/02/21 10:02 Plt Count 310 K/mm3 (140-440) 03/02/21 10:02 Lymph % (Auto) 11.9 % (13.4-35.0) L 03/02/21 10:02 [place] % (Auto) 10.8 % (0.0-7.3) H 03/02/21 10:02 Eos % (Auto) 1.0 % (0.0-4.3) 03/02/21 10:02 Baso % (Auto) 0.2 % (0.0-1.8) 03/02/21 10:02 Lymph # (Auto) 1.7 K/mm3 (1.2-5.4) 03/02/21 10:02 [place] # (Auto) 1.5 K/mm3 (0.0-0.8) H 03/02/21 10:02 Eos # (Auto) 0.1 K/mm3 (0.0-0.4) 03/02/21 10:02 Baso # (Auto) 0.0 K/mm3 (0.0-0.1) 03/02/21 10:02 Add Manual Diff Complete 03/01/21 07:47 Total Counted 100 03/01/21 07:47 Seg Neutrophils % 76.1 % (40.0-70.0) H 03/02/21 10:02 Seg Neuts % (Manual) 65.0 % (40.0-70.0) 03/01/21 07:47 Band Neutrophils % 1.0 % 03/01/21 07:47 Lymphocytes % (Manual) 26.0 % (13.4-35.0) 03/01/21 07:47 Monocytes % (Manual) 7.0 % (0.0-7.3) 03/01/21 07:47 Basophils % (Manual) 1.0 % (0.0-1.8) 03/01/21 07:47 Nucleated RBC % Not Reportable 03/01/21 07:47 Seg Neutrophils # 10.6 K/mm3 (1.8-7.7) H 03/02/21 10:02 Seg Neutrophils # Man 8.4 K/mm3 (1.8-7.7) H 03/01/21 07:47 Band Neutrophils # 0.1 K/mm3 03/01/21 07:47 Lymphocytes # (Manual) 3.4 K/mm3 (1.2-5.4) 03/01/21 07:47 Abs React Lymphs (Man) 0.0 K/mm3 03/01/21 07:47 Monocytes # (Manual) 0.9 K/mm3 (0.0-0.8) H 03/01/21 07:47 Eosinophils # (Manual) 0.0 K/mm3 (0.0-0.4) 03/01/21 07:47 Basophils # (Manual) 0.1 K/mm3 (0.0-0.1) 03/01/21 07:47 Metamyelocytes # 0.0 K/mm3 03/01/21 07:47 Myelocytes # 0.0 K/mm3 03/01/21 07:47 Promyelocytes # 0.0 K/mm3 03/01/21 07:47 Blast Cells # 0.0 K/mm3 03/01/21 07:47 WBC Morphology Not Reportable 03/01/21 07:47 Hypersegmented Neuts Not Reportable 03/01/21 07:47 Hyposegmented Neuts Not Reportable 03/01/21 07:47 Hypogranular Neuts Not Reportable 03/01/21 07:47 Smudge Cells Not Reportable 03/01/21 07:47 Toxic Granulation Not Reportable 03/01/21 07:47 Toxic Vacuolation Not Reportable 03/01/21 07:47 Dohle Bodies Not Reportable 03/01/21 07:47 Pelger-Huet Anomaly Not Reportable 03/01/21 07:47 Dania Rods Not Reportable 03/01/21 07:47 Platelet Estimate Consistent w auto 03/01/21 07:47 Clumped Platelets Not Reportable 03/01/21 07:47 Plt Clumps, EDTA Not Reportable 03/01/21 07:47 Large Platelets Not Reportable 03/01/21 07:47 Giant Platelets Not Reportable 03/01/21 07:47 Platelet Satelliting Not Reportable 03/01/21 07:47 Plt Morphology Comment Not Reportable 03/01/21 07:47 RBC Morphology Not Reportable 03/01/21 07:47 Dimorphic RBCs Not Reportable 03/01/21 07:47 Polychromasia Not Reportable 03/01/21 07:47 Hypochromasia 1+ 03/01/21 07:47 Poikilocytosis Not Reportable 03/01/21 07:47 Anisocytosis Not Reportable 03/01/21 07:47 Microcytosis Not Reportable 03/01/21 07:47 Macrocytosis Not Reportable 03/01/21 07:47 Spherocytes Not Reportable 03/01/21 07:47 Pappenheimer Bodies Not Reportable 03/01/21 07:47 Sickle Cells Not Reportable 03/01/21 07:47 Target Cells Not Reportable 03/01/21 07:47 Tear Drop Cells Not Reportable 03/01/21 07:47 Ovalocytes Not Reportable 03/01/21 07:47 Helmet Cells Not Reportable 03/01/21 07:47 Allen-Gravity Bodies Not Reportable 03/01/21 07:47 [place] Rings Not Reportable 03/01/21 07:47 [place] Cells Not Reportable 03/01/21 07:47 Bite Cells Not Reportable 03/01/21 07:47 Crenated Cell Not Reportable 03/01/21 07:47 Elliptocytes Not Reportable 03/01/21 07:47 Acanthocytes (Spur) Not Reportable 03/01/21 07:47 Rouleaux Not Reportable 03/01/21 07:47 Hemoglobin C Crystals Not Reportable 03/01/21 07:47 Schistocytes Not Reportable 03/01/21 07:47 Malaria parasites Not Reportable 03/01/21 07:47 [place] Bodies Not Reportable 03/01/21 07:47 Hem Pathologist Commnt No 03/01/21 07:47 Sodium 136 mmol/L (137-145) L 03/02/21 10:02 Potassium 4.0 mmol/L (3.6-5.0) 03/02/21 10:02 Chloride 101.1 mmol/L (98-107) 03/02/21 10:02 Carbon Dioxide 26 mmol/L (22-30) 03/02/21 10:02 Anion Gap 13 mmol/L 03/02/21 10:02 BUN 8 mg/dL (9-20) L 03/02/21 10:02 Creatinine 1.0 mg/dL (0.8-1.3) 03/02/21 10:02 Estimated GFR > 60 ml/min 03/02/21 10:02 BUN/Creatinine Ratio 8 % 03/02/21 10:02 Glucose 132 mg/dL (75-100) H 03/02/21 10:02 Lactic Acid 0.70 mmol/L (0.7-2.0) 03/01/21 11:21 Calcium 8.5 mg/dL (8.4-10.2) 03/02/21 10:02 Total Bilirubin 0.80 mg/dL (0.1-1.2) 03/01/21 07:47 AST 25 units/L (5-40) 03/01/21 07:47 ALT 26 units/L (7-56) 03/01/21 07:47 Alkaline Phosphatase 107 units/L (35-129) 03/01/21 07:47 Total Protein 7.9 g/dL (6.3-8.2) 03/01/21 07:47 Albumin 3.8 g/dL (3.9-5) L 03/01/21 07:47 Albumin/Globulin Ratio 0.9 % 03/01/21 07:47 Urine Color Yellow (Yellow) 03/01/21 07:55 Urine Turbidity Slightly-cloudy (Clear) 03/01/21 07:55 Urine pH 5.0 (5.0-7.0) 03/01/21 07:55 Ur Specific [place] 1.019 (1.003-1.030) 03/01/21 07:55 Urine Protein 30 mg/dl mg/dL (Negative) 03/01/21 07:55 Urine Glucose (UA) Neg mg/dL (Negative) 03/01/21 07:55 Urine Ketones Neg mg/dL (Negative) 03/01/21 07:55 Urine Blood Mod (Negative) 03/01/21 07:55 Urine Nitrite Neg (Negative) 03/01/21 07:55 Urine Bilirubin Neg (Negative) 03/01/21 07:55 Urine Urobilinogen 4.0 mg/dL (<2.0) 03/01/21 07:55 Ur Leukocyte Esterase Mod (Negative) 03/01/21 07:55 Urine WBC (Auto) 73.0 /HPF (0.0-6.0) H 03/01/21 07:55 Urine RBC (Auto) 3.0 /HPF (0.0-6.0) 03/01/21 07:55 U Epithel Cells (Auto) 26.0 /HPF (0-13.0) H 03/01/21 07:55 Urine Bacteria (Auto) 1+ /HPF (Negative) 03/01/21 07:55 Urine Mucus Few /HPF 03/01/21 07:55 Microbiology: Microbiology 03/01/21 07:47 Peripheral/Venous Blood Culture - Preliminary NO GROWTH AFTER 24 HOURS 03/01/21 07:47 Peripheral/Venous Blood Culture - Preliminary NO GROWTH AFTER 24 HOURS Active Medications - Current Medications Current Medications: Generic Name Dose Route Start Last Admin Trade Name Freq PRN Reason Stop Dose Admin Acetaminophen 650 mg 03/01/21 14:52 03/02/21 11:27 Acetaminophen 325 Mg Tab PO 650 mg Q4H PRN Administration Pain MILD(1-3)/Fever >100.5/ARREDONDO Albuterol 2.5 mg 03/01/21 14:52 Albuterol 2.5 Mg/3 Ml Nebu IH Q4HRT PRN Shortness Of Breath Hydromorphone HCl 0.5 mg 03/01/21 14:52 03/02/21 11:39 Hydromorphone 1 Mg/1 Ml Inj IV 0.5 mg Q12H PRN Administration Pain , Severe (7-10) Vancomycin HCl 1,500 mg/ 530 mls @ 265 mls/hr 03/02/21 14:00 Sodium Chloride IV Q8HR MICKIE Cefepime HCl 2 gm in 100 mls @ 200 mls/hr 03/02/21 14:00 Cefepime/Ns 2 Gm/100 Ml IV Q8HR MICKIE Protocol Metronidazole 500 mg in 100 mls @ 100 mls/hr 03/02/21 14:00 03/02/21 13:30 Flagyl 500 Mg/100 Ml IV 100 mls/hr Q8HR MICKIE Administration Protocol Ondansetron HCl 4 mg 03/01/21 14:52 03/01/21 20:29 Ondansetron 4 Mg/2 Ml Inj IV 4 mg Q8H PRN Administration Nausea And Vomiting Oxycodone/Acetaminophen 1 tab 03/01/21 14:52 03/01/21 20:29 Oxycodone /Acetaminophen 5-325mg Tab PO 1 tab Q12H PRN Administration Pain, Moderate (4-6) Sodium Chloride 10 ml 03/01/21 22:00 03/02/21 11:29 Sodium Chloride 0.9% 10 Ml Flush Syringe IV 10 ml BID MICKIE Administration Sodium Chloride 10 ml 03/01/21 14:52 Sodium Chloride 0.9% 10 Ml Flush Syringe IV PRN PRN LINE FLUSH
[2021-03-02] MEDS: CEFEPIME/NS 2 GM/100 ML 2 GM/100 ML BAG IV SCH ×2 (15:31→21:03)
--- NOTE | 2021-03-02 15:34 | Event Note ---
Date: 03/02/21 Patient with a history of perineal pain who presented to the ER. Imaging of the abdomen pelvis partially demonstrates fluid collection with rim enhancement in the region of the prostate. However, full imaging is not completed. The patient will need a full urologic work-up and evaluation for what appears to be on limited imaging prostatic or periurethral abscess.
[2021-03-02] MEDS: FUROSEMIDE 40 MG/4 ML INJ IV SCH (15:35)
--- NOTE | 2021-03-02 16:40 | XRay Report ---
CHEST 1 VIEW INDICATION: shortness of breath. COMPARISON: None FINDINGS: Support devices: None. Heart: Within normal limits. Lungs/Pleura: There is poor inspiration. No acute air space or interstitial disease. No pneumothorax. Additional findings: None. IMPRESSION: No acute findings. Signer Name: Alex Hair Jr, MD Signed: 03/02/2021 4:36 PM Workstation Name: [id number]
[2021-03-02 17:48] LABS: ABG Base Excess 1.4 mmol/L (-2.0-3.0); ABG HCO3 25.8 mmol/L (20.0-26.0); ABG Methemoglobin 0.4 % (0.0-1.5); ABG Oxygen Saturation 94.8 % (95.0-99.0); ABG PCO2 39.4 mm Hg; ABG PH 7.434 pH Units (7.350-7.450); ABG PO2 68.3 mm Hg (80.0-90.0)
[2021-03-02] MEDS ORDERED: cefTRIAXone/NS 2 GM/100 ML 2 GM/100 ML BAG IV SCH (18:00)
[2021-03-02] MEDS: oxyCODONE /ACETAMINOPHEN 5-325MG TAB PO PRN (22:34)
[2021-03-03] MEDS: CEFEPIME/NS 2 GM/100 ML 2 GM/100 ML BAG IV SCH ×4 (05:35→23:23)
[2021-03-03] MEDS: metroNIDAZOLE/NS 500 MG/100 ML 500 MG/100 ML BAG IV SCH ×3 (05:35→22:00)
[2021-03-03] MEDS: VANCOMYCIN 1,500 MG in SODIUM CHLORIDE 0.9% 500 ML 500 ML IV SCH ×4 (05:35→22:00)
[2021-03-03] MEDS: HYDROmorphone 1 MG/1 ML INJ IV PRN ×2 (06:07→16:33)
[2021-03-03 07:55] LABS: Hematocrit 34.7 % (35.5-45.6); Hemoglobin 11.5 gm/dl (11.8-15.2); Mean Corpuscular HGB Conc 33 % (32-34); Mean Corpuscular Volume 90 fl (84-94); Platelet Count 314 K/mm3 (140-440); Red Blood Count 3.87 M/mm3 (3.65-5.03); Red Cell Distribution Width 12.9 % (13.2-15.2)
[2021-03-03 08:13] LABS: BUN/Creatinine Ratio 9; Blood Urea Nitrogen 9 mg/dL (9-20); Calcium 8.6 mg/dL (8.4-10.2); Hemolysis Index 6
--- NOTE | 2021-03-03 09:19 | Progress Note ---
Assessment and Plan Assessment and plan: 30 YO Male with Super Morbid Obesity, Obesity Hypoventilation Syndrome presents to ED for evaluation. Patient reports I think I pulled something". Patient states that he has experienced pain at the base of his penis extending toward his rectum over the past 2 weeks with persistent and worsening symptoms over the same timeframe. Patient states that he was walking while carrying heavy packages and experienced a sudden onset of pain at the base of his penis. Patient transported to [facility] via private vehicle for further care and evaluation of the aforementioned symptoms. The patient was seen and evaluated in the emergency department. All lab and imaging studies reviewed. Patient underwent CT scan of the abdomen and pelvis and was found to have a perineal abscess, urinary tract infection complicated by systemic inflammatory response syndrome. Surgical team consulted in ED. Urology team consulted in ED. Patient admitted to medical floor and initiated on IV antibiotic therapy. Patient denies fever, chills, chest pain, palpitation, shortness of breath, trauma, or known ill contacts, or known exposure to COVID-19. No prior admission for review. No medication listed at time of admission for reconciliation. Past History Past Medical History: other (See HPI) Past Surgical History: No surgical history, Other (Reviewed) Social history: single. denies: smoking, alcohol abuse, prescription drug abuse (1) sepsis (2) perineal abscess Current Visit: Yes Status: Acute Plan to address problem: Surgery team consulted, urology team consulted. No surgical intervention at this time as per urology team. IV antibiotic therapy, further care and evaluation as per urology team. (3) Obesity hypoventilation syndrome Current Visit: Yes Status: Acute Plan to address problem: Balanced diet, increase physical activity at discharge, outpatient pulmonary follow-up for sleep study, outpatient bariatric surgery follow-up. (4) Acute cystitis Current Visit: Yes Status: Acute Qualifiers: Encounter type: initial encounter Plan to address problem: CBC, urinalysis, IV antibiotic therapy. (5) Systemic inflammatory response syndrome Current Visit: Yes Status: Acute Plan to address problem: CBC, CMP, urinalysis, IV antibiotic therapy, repeat CBC in a.m. (6) super morbid obese (7)DVT prophylaxis Current Visit: Yes Status: Acute Plan to address problem: SCDs bilateral lower extremities while in bed, patient is ambulatory 03/02: Patient this morning was found on CPAP. I am not sure if this is secondary to his obesity. Nevertheless we will obtain a chest x-ray will give him a dose of Lasix as he still does have some edematous area. He has an elevated leukocytosis stable despite antibiotics I will consult ID to follow on his management and they already saw him today. We are awaiting urology evaluation of also reached out to them as they are front desk assistant counterpart was discu ssed with based on ER documentation. Surgery input is noted we will await urology evaluation for further decision making for now continue antibiotic therapy. 03/03: Patient seen this morning still intermittent pain still low-grade fever continue antibiotics. Discussed with vascular who will be ordering a CT to further evaluate the lower pelvic region as he believes that the initial CT did not go Lovenox. Also touch base with urology who has reviewed the imaging does not feel that there is any drainable fluid at this time cystoscopically, no other issues reported we will continue to monitor. Follow cultures. ABG consistent with hypoxia. Chest x-ray reviewed and is negative. Patient will likely need home O2 eval prior to discharge. We will give a dose of Lasix due to mild pitting edema noted History Interval history: Patient seen and examined this morning. No new complaints. Was on CPAP last night. Hospitalist Physical - Physical exam Narrative exam: VITAL SIGNS: Reviewed. GENERAL: The patient appears normally developed, super morbidly obese vital signs as documented. HEAD: No signs of head trauma. EYES: Pupils are equal. Extraocular motions intact. EARS: Hearing grossly intact. MOUTH: Oropharynx is normal. NECK: No adenopathy, no JVD. CHEST: Chest with clear breath sounds bilaterally. No wheezes, rales, or rhonchi. CARDIAC: Regular rate and rhythm. S1 and S2, without murmurs, gallops, or rubs. VASCULAR: No Edema. Peripheral pulses normal and equal in all extremities. ABDOMEN: Soft, non tender and non distended. No rebound or guarding, and no masses palpated. Bowel Sounds normal. MUSCULOSKELETAL: Good range of motion of all major joints. Extremities without clubbing, cyanosis or edema. exam: Present: normal inspection, other (Patient has significant tenderness to deep palpation in the perineal area, area is warm, slight erythema noted at the base of the buttocks, and around the perineal area, but no apparent induration or fluctuance.). Absent: testicular tenderness, urethral discharge, scrotal swelling, circumcision NEUROLOGIC EXAM: Alert and oriented x 3 No focal sensory or strength deficits. Speech normal. Follows commands. PSYCHIATRIC: Mood normal. SKIN: detail exam as documented in skin assessment - Constitutional Vitals: Temp Pulse Resp BP Pulse Ox 100.7 F H 95 H 18 135/73 96 03/03/21 06:00 03/03/21 06:00 03/03/21 06:00 03/03/21 06:00 03/03/21 06:37 General appearance: Present: mild distress, obese Results - Labs CBC & Chem 7: 03/03/21 07:42 03/03/21 07:42 Labs: Laboratory Last Values WBC 13.9 K/mm3 (4.5-11.0) H 03/03/21 07:42 RBC 3.87 M/mm3 (3.65-5.03) 03/03/21 07:42 Hgb 11.5 gm/dl (11.8-15.2) L 03/03/21 07:42 Hct 34.7 % (35.5-45.6) L 03/03/21 07:42 MCV 90 fl (84-94) 03/03/21 07:42 MCH 30 pg (28-32) 03/03/21 07:42 MCHC 33 % (32-34) 03/03/21 07:42 RDW 12.9 % (13.2-15.2) L 03/03/21 07:42 Plt Count 314 K/mm3 (140-440) 03/03/21 07:42 Lymph % (Auto) 11.9 % (13.4-35.0) L 03/02/21 10:02 [place] % (Auto) 10.8 % (0.0-7.3) H 03/02/21 10:02 Eos % (Auto) 1.0 % (0.0-4.3) 03/02/21 10:02 Baso % (Auto) 0.2 % (0.0-1.8) 03/02/21 10:02 Lymph # (Auto) 1.7 K/mm3 (1.2-5.4) 03/02/21 10:02 [place] # (Auto) 1.5 K/mm3 (0.0-0.8) H 03/02/21 10:02 Eos # (Auto) 0.1 K/mm3 (0.0-0.4) 03/02/21 10:02 Baso # (Auto) 0.0 K/mm3 (0.0-0.1) 03/02/21 10:02 Add Manual Diff Complete 03/01/21 07:47 Total Counted 100 03/01/21 07:47 Seg Neutrophils % 76.1 % (40.0-70.0) H 03/02/21 10:02 Seg Neuts % (Manual) 65.0 % (40.0-70.0) 03/01/21 07:47 Band Neutrophils % 1.0 % 03/01/21 07:47 Lymphocytes % (Manual) 26.0 % (13.4-35.0) 03/01/21 07:47 Monocytes % (Manual) 7.0 % (0.0-7.3) 03/01/21 07:47 Basophils % (Manual) 1.0 % (0.0-1.8) 03/01/21 07:47 Nucleated RBC % Not Reportable 03/01/21 07:47 Seg Neutrophils # 10.6 K/mm3 (1.8-7.7) H 03/02/21 10:02 Seg Neutrophils # Man 8.4 K/mm3 (1.8-7.7) H 03/01/21 07:47 Band Neutrophils # 0.1 K/mm3 03/01/21 07:47 Lymphocytes # (Manual) 3.4 K/mm3 (1.2-5.4) 03/01/21 07:47 Abs React Lymphs (Man) 0.0 K/mm3 03/01/21 07:47 Monocytes # (Manual) 0.9 K/mm3 (0.0-0.8) H 03/01/21 07:47 Eosinophils # (Manual) 0.0 K/mm3 (0.0-0.4) 03/01/21 07:47 Basophils # (Manual) 0.1 K/mm3 (0.0-0.1) 03/01/21 07:47 Metamyelocytes # 0.0 K/mm3 03/01/21 07:47 Myelocytes # 0.0 K/mm3 03/01/21 07:47 Promyelocytes # 0.0 K/mm3 03/01/21 07:47 Blast Cells # 0.0 K/mm3 03/01/21 07:47 WBC Morphology Not Reportable 03/01/21 07:47 Hypersegmented Neuts Not Reportable 03/01/21 07:47 Hyposegmented Neuts Not Reportable 03/01/21 07:47 Hypogranular Neuts Not Reportable 03/01/21 07:47 Smudge Cells Not Reportable 03/01/21 07:47 Toxic Granulation Not Reportable 03/01/21 07:47 Toxic Vacuolation Not Reportable 03/01/21 07:47 Dohle Bodies Not Reportable 03/01/21 07:47 Pelger-Huet Anomaly Not Reportable 03/01/21 07:47 Dania Rods Not Reportable 03/01/21 07:47 Platelet Estimate Consistent w auto 03/01/21 07:47 Clumped Platelets Not Reportable 03/01/21 07:47 Plt Clumps, EDTA Not Reportable 03/01/21 07:47 Large Platelets Not Reportable 03/01/21 07:47 Giant Platelets Not Reportable 03/01/21 07:47 Platelet Satelliting Not Reportable 03/01/21 07:47 Plt Morphology Comment Not Reportable 03/01/21 07:47 RBC Morphology Not Reportable 03/01/21 07:47 Dimorphic RBCs Not Reportable 03/01/21 07:47 Polychromasia Not Reportable 03/01/21 07:47 Hypochromasia 1+ 03/01/21 07:47 Poikilocytosis Not Reportable 03/01/21 07:47 Anisocytosis Not Reportable 03/01/21 07:47 Microcytosis Not Reportable 03/01/21 07:47 Macrocytosis Not Reportable 03/01/21 07:47 Spherocytes Not Reportable 03/01/21 07:47 Pappenheimer Bodies Not Reportable 03/01/21 07:47 Sickle Cells Not Reportable 03/01/21 07:47 Target Cells Not Reportable 03/01/21 07:47 Tear Drop Cells Not Reportable 03/01/21 07:47 Ovalocytes Not Reportable 03/01/21 07:47 Helmet Cells Not Reportable 03/01/21 07:47 [place] Bodies Not Reportable 03/01/21 07:47 Goessel Rings Not Reportable 03/01/21 07:47 Marj Cells Not Reportable 03/01/21 07:47 Bite Cells Not Reportable 03/01/21 07:47 Crenated Cell Not Reportable 03/01/21 07:47 Elliptocytes Not Reportable 03/01/21 07:47 Acanthocytes (Spur) Not Reportable 03/01/21 07:47 Rouleaux Not Reportable 03/01/21 07:47 Hemoglobin C Crystals Not Reportable 03/01/21 07:47 Schistocytes Not Reportable 03/01/21 07:47 Malaria parasites Not Reportable 03/01/21 07:47 [place] Bodies Not Reportable 03/01/21 07:47 Hem Pathologist Commnt No 03/01/21 07:47 ABG pH 7.434 pH Units (7.350-7.450) 03/02/21 17:20 ABG pCO2 39.4 mm Hg 03/02/21 17:20 ABG pO2 68.3 mm Hg (80.0-90.0) L 03/02/21 17:20 ABG HCO3 25.8 mmol/L (20.0-26.0) 03/02/21 17:20 ABG O2 Saturation 94.8 % (95.0-99.0) L 03/02/21 17:20 ABG O2 Content 10.7 (0.0-44) 03/02/21 17:20 ABG Base Excess 1.4 mmol/L (-2.0-3.0) 03/02/21 17:20 ABG Hemoglobin 8.1 gm/dl (14.0-18.0) L 03/02/21 17:20 ABG Carboxyhemoglobin 1.4 % (0.0-5.0) 03/02/21 17:20 ABG Methemoglobin 0.4 % (0.0-1.5) 03/02/21 17:20 Oxyhemoglobin 93.1 % (95.0-99.0) L 03/02/21 17:20 FiO2 21 % 03/02/21 17:20 Sodium 138 mmol/L (137-145) 03/03/21 07:42 Potassium 4.0 mmol/L (3.6-5.0) 03/03/21 07:42 Chloride 102.1 mmol/L (98-107) 03/03/21 07:42 Carbon Dioxide 23 mmol/L (22-30) 03/03/21 07:42 Anion Gap 17 mmol/L 03/03/21 07:42 BUN 9 mg/dL (9-20) 03/03/21 07:42 Creatinine 1.0 mg/dL (0.8-1.3) 03/03/21 07:42 Estimated GFR > 60 ml/min 03/03/21 07:42 BUN/Creatinine Ratio 9 % 03/03/21 07:42 Glucose 117 mg/dL (75-100) H 03/03/21 07:42 Lactic Acid 0.70 mmol/L (0.7-2.0) 03/01/21 11:21 Calcium 8.6 mg/dL (8.4-10.2) 03/03/21 07:42 Total Bilirubin 0.80 mg/dL (0.1-1.2) 03/01/21 07:47 AST 25 units/L (5-40) 03/01/21 07:47 ALT 26 units/L (7-56) 03/01/21 07:47 Alkaline Phosphatase 107 units/L (35-129) 03/01/21 07:47 Total Protein 7.9 g/dL (6.3-8.2) 03/01/21 07:47 Albumin 3.8 g/dL (3.9-5) L 03/01/21 07:47 Albumin/Globulin Ratio 0.9 % 03/01/21 07:47 Urine Color Yellow (Yellow) 03/01/21 07:55 Urine Turbidity Slightly-cloudy (Clear) 03/01/21 07:55 Urine pH 5.0 (5.0-7.0) 03/01/21 07:55 Ur Specific [place] 1.019 (1.003-1.030) 03/01/21 07:55 Urine Protein 30 mg/dl mg/dL (Negative) 03/01/21 07:55 Urine Glucose (UA) Neg mg/dL (Negative) 03/01/21 07:55 Urine Ketones Neg mg/dL (Negative) 03/01/21 07:55 Urine Blood Mod (Negative) 03/01/21 07:55 Urine Nitrite Neg (Negative) 03/01/21 07:55 Urine Bilirubin Neg (Negative) 03/01/21 07:55 Urine Urobilinogen 4.0 mg/dL (<2.0) 03/01/21 07:55 Ur Leukocyte Esterase Mod (Negative) 03/01/21 07:55 Urine WBC (Auto) 73.0 /HPF (0.0-6.0) H 03/01/21 07:55 Urine RBC (Auto) 3.0 /HPF (0.0-6.0) 03/01/21 07:55 U Epithel Cells (Auto) 26.0 /HPF (0-13.0) H 03/01/21 07:55 Urine Bacteria (Auto) 1+ /HPF (Negative) 03/01/21 07:55 Urine Mucus Few /HPF 03/01/21 07:55 Microbiology: Microbiology 03/01/21 07:55 Urine,Clean Catch Urine Culture - Preliminary 03/01/21 07:47 Peripheral/Venous Blood Culture - Preliminary NO GROWTH AFTER 24 HOURS 03/01/21 07:47 Peripheral/Venous Blood Culture - Preliminary NO GROWTH AFTER 24 HOURS [place]/IV: Voiding Method Urinal Active Medications - Current Medications Current Medications: Generic Name Dose Route Start Last Admin Trade Name Freq PRN Reason Stop Dose Admin Acetaminophen 650 mg 03/01/21 14:52 03/02/21 22:35 Acetaminophen 325 Mg Tab PO 650 mg Q4H PRN Administration Pain MILD(1-3)/Fever >100.5/ARREDONDO Albuterol 2.5 mg 03/01/21 14:52 Albuterol 2.5 Mg/3 Ml Nebu IH Q4HRT PRN Shortness Of Breath Furosemide 40 mg 03/02/21 16:00 03/02/21 15:35 Furosemide 40 Mg/4 Ml Inj IV 40 mg QDAY MICKIE Administration Hydromorphone HCl 0.5 mg 03/02/21 15:04 03/03/21 06:07 Hydromorphone 1 Mg/1 Ml Inj IV 0.5 mg Q6H PRN Administration Pain , Severe (7-10) Vancomycin HCl 1,500 mg/ 530 mls @ 265 mls/hr 03/02/21 14:00 03/03/21 05:35 Sodium Chloride IV 265 mls/hr Q8HR MICKIE Administration Cefepime HCl 2 gm in 100 mls @ 200 mls/hr 03/02/21 14:00 03/03/21 06:51 Cefepime/Ns 2 Gm/100 Ml IV Infused Q8HR MICKIE Infusion Protocol Metronidazole 500 mg in 100 mls @ 100 mls/hr 03/02/21 14:00 03/03/21 06:52 Flagyl 500 Mg/100 Ml IV Infused Q8HR MICKIE Infusion Protocol Ondansetron HCl 4 mg 03/01/21 14:52 03/01/21 20:29 Ondansetron 4 Mg/2 Ml Inj IV 4 mg Q8H PRN Administration Nausea And Vomiting Oxycodone/Acetaminophen 1 tab 03/01/21 14:52 03/02/21 22:34 Oxycodone /Acetaminophen 5-325mg Tab PO 1 tab Q12H PRN Administration Pain, Moderate (4-6) Sodium Chloride 10 ml 03/01/21 22:00 03/02/21 21:04 Sodium Chloride 0.9% 10 Ml Flush Syringe IV 10 ml BID MICKIE Administration Sodium Chloride 10 ml 03/01/21 14:52 Sodium Chloride 0.9% 10 Ml Flush Syringe IV PRN PRN LINE FLUSH
[2021-03-03] MEDS: FUROSEMIDE 40 MG/4 ML INJ IV SCH (09:44)
[2021-03-03] MEDS: oxyCODONE /ACETAMINOPHEN 5-325MG TAB PO PRN (09:44)
[2021-03-03] MEDS ORDERED: FUROSEMIDE 40 MG/4 ML INJ IV ONE (10:00)
--- NOTE | 2021-03-03 12:49 | Cat Scan Report ---
CT pelvis w con INDICATION / CLINICAL INFORMATION: Prostatic abscess incompletely imaged. TECHNIQUE: Axial CT images were obtained through the pelvis after 100 mL of Omnipaque [address] scans at this location are performed using CT dose reduction for ALARA by means of automate d exposure control. COMPARISON: CT from 03/01/2021. FINDINGS: 4.4 x 4.1 x 4.7 cm peripherally enhancing collection is again seen in the perineum, just below the ba se of the prostate gland. This appears to extend from the left perianal region with asymmetric soft t issue thickening and stranding of the left gluteal fold. Additional peripherally enhancing collection seen more inferiorly measuring up to 3.8 cm (series 3 image 114). Bladder is unremarkable. No bowel obstruction or inflammation. Left inguinal lymphadenopathy is likel y reactive no adenopathy in the pelvis. No acute osseous findings.. IMPRESSION: Abscess centered in the peritoneum appears to extend from the left perianal region. There is asymmetr ic soft tissue thickening and inflammatory stranding of the left gluteal fold. Signer Name: Joseph Hamilton MD Signed: 03/03/2021 12:44 PM Workstation Name: [id number]
[2021-03-03] MEDS: SIMETHICONE 80 MG CHEW TAB PO PRN (14:20)
[2021-03-04] MEDS: CEFEPIME/NS 2 GM/100 ML 2 GM/100 ML BAG IV SCH ×3 (06:02→22:48)
[2021-03-04] MEDS: VANCOMYCIN 1,500 MG in SODIUM CHLORIDE 0.9% 500 ML 500 ML IV SCH ×3 (06:08→22:30)
[2021-03-04] MEDS: metroNIDAZOLE/NS 500 MG/100 ML 500 MG/100 ML BAG IV SCH ×3 (06:09→22:30)
[2021-03-04] MEDS: FUROSEMIDE 40 MG/4 ML INJ IV SCH (10:59)
--- NOTE | 2021-03-04 10:59 | Progress Note ---
Assessment and Plan Assessment and plan: 30 YO Male with Super Morbid Obesity, Obesity Hypoventilation Syndrome presents to ED for evaluation. Patient reports I think I pulled something". Patient states that he has experienced pain at the base of his penis extending toward his rectum over the past 2 weeks with persistent and worsening symptoms over the same timeframe. Patient states that he was walking while carrying heavy packages and experienced a sudden onset of pain at the base of his penis. Patient transported to [facility] via private vehicle for further care and evaluation of the aforementioned symptoms. The patient was seen and evaluated in the emergency department. All lab and imaging studies reviewed. Patient underwent CT scan of the abdomen and pelvis and was found to have a perineal abscess, urinary tract infection complicated by systemic inflammatory response syndrome. Surgical team consulted in ED. Urology team consulted in ED. Patient admitted to medical floor and initiated on IV antibiotic therapy. Patient denies fever, chills, chest pain, palpitation, shortness of breath, trauma, or known ill contacts, or known exposure to COVID-19. No prior admission for review. No medication listed at time of admission for reconciliation. Past History Past Medical History: other (See HPI) Past Surgical History: No surgical history, Other (Reviewed) Social history: single. denies: smoking, alcohol abuse, prescription drug abuse (1) sepsis (2) perineal abscess Current Visit: Yes Status: Acute Plan to address problem: Surgery team consulted, urology team consulted. No surgical intervention at this time as per urology team. IV antibiotic therapy, further care and evaluation as per urology team. (3) Obesity hypoventilation syndrome Current Visit: Yes Status: Acute Plan to address problem: Balanced diet, increase physical activity at discharge, outpatient pulmonary follow-up for sleep study, outpatient bariatric surgery follow-up. (4) Acute cystitis Current Visit: Yes Status: Acute Qualifiers: Encounter type: initial encounter Plan to address problem: CBC, urinalysis, IV antibiotic therapy. (5) Systemic inflammatory response syndrome Current Visit: Yes Status: Acute Plan to address problem: CBC, CMP, urinalysis, IV antibiotic therapy, repeat CBC in a.m. (6) super morbid obese (7)DVT prophylaxis Current Visit: Yes Status: Acute Plan to address problem: SCDs bilateral lower extremities while in bed, patient is ambulatory 03/02: Patient this morning was found on CPAP. I am not sure if this is secondary to his obesity. Nevertheless we will obtain a chest x-ray will give him a dose of Lasix as he still does have some edematous area. He has an elevated leukocytosis stable despite antibiotics I will consult ID to follow on his management and they already saw him today. We are awaiting urology evaluation of also reached out to them as they are manager combination counterpart was discu ssed with based on ER documentation. Surgery input is noted we will await urology evaluation for further decision making for now continue antibiotic therapy. 03/03: Patient seen this morning still intermittent pain still low-grade fever continue antibiotics. Discussed with vascular who will be ordering a CT to further evaluate the lower pelvic region as he believes that the initial CT did not go Lovenox. Also touch base with urology who has reviewed the imaging does not feel that there is any drainable fluid at this time cystoscopically, no other issues reported we will continue to monitor. Follow cultures. ABG consistent with hypoxia. Chest x-ray reviewed and is negative. Patient will likely need home O2 eval prior to discharge. We will give a dose of Lasix due to mild pitting edema noted 03/04: Awaiting surgical re-evaluation, continue abx, reached out to Urology again and they said to continue abx, will await their review of CT and also IR review. History Interval history: Patient seen and examined this morning. No new complaints. Hospitalist Physical - Physical exam Narrative exam: VITAL SIGNS: Reviewed. GENERAL: The patient appears normally developed, super morbidly obese vital signs as documented. HEAD: No signs of head trauma. EYES: Pupils are equal. Extraocular motions intact. EARS: Hearing grossly intact. MOUTH: Oropharynx is normal. NECK: No adenopathy, no JVD. CHEST: Chest with clear breath sounds bilaterally. No wheezes, rales, or rhonchi. CARDIAC: Regular rate and rhythm. S1 and S2, without murmurs, gallops, or rubs. VASCULAR: No Edema. Peripheral pulses normal and equal in all extremities. ABDOMEN: Soft, non tender and non distended. No rebound or guarding, and no masses palpated. Bowel Sounds normal. MUSCULOSKELETAL: Good range of motion of all major joints. Extremities without clubbing, cyanosis or edema. exam: Present: normal inspection, other (Patient has significant tenderness to deep palpation in the perineal area, area is warm, slight erythema noted at the base of the buttocks, and around the perineal area, but no apparent induration or fluctuance.). Absent: testicular tenderness, urethral discharge, scrotal swelling, circumcision NEUROLOGIC EXAM: Alert and oriented x 3 No focal sensory or strength deficits. Speech normal. Follows commands. PSYCHIATRIC: Mood normal. SKIN: detail exam as documented in skin assessment - Constitutional Vitals: Temp Pulse Resp BP Pulse Ox 98.5 F 104 H 18 137/77 97 03/04/21 05:11 03/04/21 05:11 03/04/21 05:11 03/04/21 05:11 03/04/21 08:09 General appearance: Present: mild distress, obese Results - Labs CBC & Chem 7: 03/03/21 07:42 03/03/21 07:42 Labs: Laboratory Last Values WBC 13.9 K/mm3 (4.5-11.0) H 03/03/21 07:42 RBC 3.87 M/mm3 (3.65-5.03) 03/03/21 07:42 Hgb 11.5 gm/dl (11.8-15.2) L 03/03/21 07:42 Hct 34.7 % (35.5-45.6) L 03/03/21 07:42 MCV 90 fl (84-94) 03/03/21 07:42 MCH 30 pg (28-32) 03/03/21 07:42 MCHC 33 % (32-34) 03/03/21 07:42 RDW 12.9 % (13.2-15.2) L 03/03/21 07:42 Plt Count 314 K/mm3 (140-440) 03/03/21 07:42 Lymph % (Auto) 11.9 % (13.4-35.0) L 03/02/21 10:02 [place] % (Auto) 10.8 % (0.0-7.3) H 03/02/21 10:02 Eos % (Auto) 1.0 % (0.0-4.3) 03/02/21 10:02 Baso % (Auto) 0.2 % (0.0-1.8) 03/02/21 10:02 Lymph # (Auto) 1.7 K/mm3 (1.2-5.4) 03/02/21 10:02 [place] # (Auto) 1.5 K/mm3 (0.0-0.8) H 03/02/21 10:02 Eos # (Auto) 0.1 K/mm3 (0.0-0.4) 03/02/21 10:02 Baso # (Auto) 0.0 K/mm3 (0.0-0.1) 03/02/21 10:02 Add Manual Diff Complete 03/01/21 07:47 Total Counted 100 03/01/21 07:47 Seg Neutrophils % 76.1 % (40.0-70.0) H 03/02/21 10:02 Seg Neuts % (Manual) 65.0 % (40.0-70.0) 03/01/21 07:47 Band Neutrophils % 1.0 % 03/01/21 07:47 Lymphocytes % (Manual) 26.0 % (13.4-35.0) 03/01/21 07:47 Monocytes % (Manual) 7.0 % (0.0-7.3) 03/01/21 07:47 Basophils % (Manual) 1.0 % (0.0-1.8) 03/01/21 07:47 Nucleated RBC % Not Reportable 03/01/21 07:47 Seg Neutrophils # 10.6 K/mm3 (1.8-7.7) H 03/02/21 10:02 Seg Neutrophils # Man 8.4 K/mm3 (1.8-7.7) H 03/01/21 07:47 Band Neutrophils # 0.1 K/mm3 03/01/21 07:47 Lymphocytes # (Manual) 3.4 K/mm3 (1.2-5.4) 03/01/21 07:47 Abs React Lymphs (Man) 0.0 K/mm3 03/01/21 07:47 Monocytes # (Manual) 0.9 K/mm3 (0.0-0.8) H 03/01/21 07:47 Eosinophils # (Manual) 0.0 K/mm3 (0.0-0.4) 03/01/21 07:47 Basophils # (Manual) 0.1 K/mm3 (0.0-0.1) 03/01/21 07:47 Metamyelocytes # 0.0 K/mm3 03/01/21 07:47 Myelocytes # 0.0 K/mm3 03/01/21 07:47 Promyelocytes # 0.0 K/mm3 03/01/21 07:47 Blast Cells # 0.0 K/mm3 03/01/21 07:47 WBC Morphology Not Reportable 03/01/21 07:47 Hypersegmented Neuts Not Reportable 03/01/21 07:47 Hyposegmented Neuts Not Reportable 03/01/21 07:47 Hypogranular Neuts Not Reportable 03/01/21 07:47 Smudge Cells Not Reportable 03/01/21 07:47 Toxic Granulation Not Reportable 03/01/21 07:47 Toxic Vacuolation Not Reportable 03/01/21 07:47 Dohle Bodies Not Reportable 03/01/21 07:47 Pelger-Huet Anomaly Not Reportable 03/01/21 07:47 Dania Rods Not Reportable 03/01/21 07:47 Platelet Estimate Consistent w auto 03/01/21 07:47 Clumped Platelets Not Reportable 03/01/21 07:47 Plt Clumps, EDTA Not Reportable 03/01/21 07:47 Large Platelets Not Reportable 03/01/21 07:47 Giant Platelets Not Reportable 03/01/21 07:47 Platelet Satelliting Not Reportable 03/01/21 07:47 Plt Morphology Comment Not Reportable 03/01/21 07:47 RBC Morphology Not Reportable 03/01/21 07:47 Dimorphic RBCs Not Reportable 03/01/21 07:47 Polychromasia Not Reportable 03/01/21 07:47 Hypochromasia 1+ 03/01/21 07:47 Poikilocytosis Not Reportable 03/01/21 07:47 Anisocytosis Not Reportable 03/01/21 07:47 Microcytosis Not Reportable 03/01/21 07:47 Macrocytosis Not Reportable 03/01/21 07:47 Spherocytes Not Reportable 03/01/21 07:47 Pappenheimer Bodies Not Reportable 03/01/21 07:47 Sickle Cells Not Reportable 03/01/21 07:47 Target Cells Not Reportable 03/01/21 07:47 Tear Drop Cells Not Reportable 03/01/21 07:47 Ovalocytes Not Reportable 03/01/21 07:47 Helmet Cells Not Reportable 03/01/21 07:47 [place] Bodies Not Reportable 03/01/21 07:47 [place] Rings Not Reportable 03/01/21 07:47 [place] Cells Not Reportable 03/01/21 07:47 Bite Cells Not Reportable 03/01/21 07:47 Crenated Cell Not Reportable 03/01/21 07:47 Elliptocytes Not Reportable 03/01/21 07:47 Acanthocytes (Spur) Not Reportable 03/01/21 07:47 Rouleaux Not Reportable 03/01/21 07:47 Hemoglobin C Crystals Not Reportable 03/01/21 07:47 Schistocytes Not Reportable 03/01/21 07:47 Malaria parasites Not Reportable 03/01/21 07:47 [place] Bodies Not Reportable 03/01/21 07:47 Hem Pathologist Commnt No 03/01/21 07:47 ABG pH 7.434 pH Units (7.350-7.450) 03/02/21 17:20 ABG pCO2 39.4 mm Hg 03/02/21 17:20 ABG pO2 68.3 mm Hg (80.0-90.0) L 03/02/21 17:20 ABG HCO3 25.8 mmol/L (20.0-26.0) 03/02/21 17:20 ABG O2 Saturation 94.8 % (95.0-99.0) L 03/02/21 17:20 ABG O2 Content 10.7 (0.0-44) 03/02/21 17:20 ABG Base Excess 1.4 mmol/L (-2.0-3.0) 03/02/21 17:20 ABG Hemoglobin 8.1 gm/dl (14.0-18.0) L 03/02/21 17:20 ABG Carboxyhemoglobin 1.4 % (0.0-5.0) 03/02/21 17:20 ABG Methemoglobin 0.4 % (0.0-1.5) 03/02/21 17:20 Oxyhemoglobin 93.1 % (95.0-99.0) L 03/02/21 17:20 FiO2 21 % 03/02/21 17:20 Sodium 138 mmol/L (137-145) 03/03/21 07:42 Potassium 4.0 mmol/L (3.6-5.0) 03/03/21 07:42 Chloride 102.1 mmol/L (98-107) 03/03/21 07:42 Carbon Dioxide 23 mmol/L (22-30) 03/03/21 07:42 Anion Gap 17 mmol/L 03/03/21 07:42 BUN 9 mg/dL (9-20) 03/03/21 07:42 Creatinine 1.0 mg/dL (0.8-1.3) 03/03/21 07:42 Estimated GFR > 60 ml/min 03/03/21 07:42 BUN/Creatinine Ratio 9 % 03/03/21 07:42 Glucose 117 mg/dL (75-100) H 03/03/21 07:42 Lactic Acid 0.70 mmol/L (0.7-2.0) 03/01/21 11:21 Calcium 8.6 mg/dL (8.4-10.2) 03/03/21 07:42 Total Bilirubin 0.80 mg/dL (0.1-1.2) 03/01/21 07:47 AST 25 units/L (5-40) 03/01/21 07:47 ALT 26 units/L (7-56) 03/01/21 07:47 Alkaline Phosphatase 107 units/L (35-129) 03/01/21 07:47 Total Protein 7.9 g/dL (6.3-8.2) 03/01/21 07:47 Albumin 3.8 g/dL (3.9-5) L 03/01/21 07:47 Albumin/Globulin Ratio 0.9 % 03/01/21 07:47 Urine Color Yellow (Yellow) 03/01/21 07:55 Urine Turbidity Slightly-cloudy (Clear) 03/01/21 07:55 Urine pH 5.0 (5.0-7.0) 03/01/21 07:55 Ur Specific [place] 1.019 (1.003-1.030) 03/01/21 07:55 Urine Protein 30 mg/dl mg/dL (Negative) 03/01/21 07:55 Urine Glucose (UA) Neg mg/dL (Negative) 03/01/21 07:55 Urine Ketones Neg mg/dL (Negative) 03/01/21 07:55 Urine Blood Mod (Negative) 03/01/21 07:55 Urine Nitrite Neg (Negative) 03/01/21 07:55 Urine Bilirubin Neg (Negative) 03/01/21 07:55 Urine Urobilinogen 4.0 mg/dL (<2.0) 03/01/21 07:55 Ur Leukocyte Esterase Mod (Negative) 03/01/21 07:55 Urine WBC (Auto) 73.0 /HPF (0.0-6.0) H 03/01/21 07:55 Urine RBC (Auto) 3.0 /HPF (0.0-6.0) 03/01/21 07:55 U Epithel Cells (Auto) 26.0 /HPF (0-13.0) H 03/01/21 07:55 Urine Bacteria (Auto) 1+ /HPF (Negative) 03/01/21 07:55 Urine Mucus Few /HPF 03/01/21 07:55 Vancomycin Trough 11.5 ug/mL (5.0-20.0) 03/03/21 15:30 Microbiology: Microbiology 03/01/21 07:47 Peripheral/Venous Blood Culture - Preliminary NO GROWTH AFTER 72 HOURS 03/01/21 07:47 Peripheral/Venous Blood Culture - Preliminary NO GROWTH AFTER 72 HOURS 03/01/21 07:55 Urine,Clean Catch Urine Culture - Final [place]/IV: Voiding Method Urinal Active Medications - Current Medications Current Medications: Generic Name Dose Route Start Last Admin Trade Name Freq PRN Reason Stop Dose Admin Acetaminophen 650 mg 03/01/21 14:52 03/02/21 22:35 Acetaminophen 325 Mg Tab PO 650 mg Q4H PRN Administration Pain MILD(1-3)/Fever >100.5/ARREDONDO Albuterol 2.5 mg 03/01/21 14:52 Albuterol 2.5 Mg/3 Ml Nebu IH Q4HRT PRN Shortness Of Breath Furosemide 40 mg 03/02/21 16:00 03/03/21 09:44 Furosemide 40 Mg/4 Ml Inj IV 40 mg QDAY MICKIE Administration Hydromorphone HCl 0.5 mg 03/02/21 15:04 03/03/21 16:33 Hydromorphone 1 Mg/1 Ml Inj IV 0.5 mg Q6H PRN Administration Pain , Severe (7-10) Vancomycin HCl 1,500 mg/ 530 mls @ 265 mls/hr 03/02/21 14:00 03/04/21 06:08 Sodium Chloride IV 265 mls/hr Q8HR MICKIE Administration Metronidazole 500 mg in 100 mls @ 100 mls/hr 03/02/21 14:00 03/04/21 06:09 Flagyl 500 Mg/100 Ml IV 100 mls/hr Q8HR MICKIE Administration Protocol Cefepime HCl 2 gm in 100 mls @ 200 mls/hr 03/04/21 06:00 03/04/21 07:52 Cefepime/Ns 2 Gm/100 Ml IV Infused Q8HR MICKIE Infusion Protocol Ondansetron HCl 4 mg 03/01/21 14:52 03/01/21 20:29 Ondansetron 4 Mg/2 Ml Inj IV 4 mg Q8H PRN Administration Nausea And Vomiting Oxycodone/Acetaminophen 1 tab 03/01/21 14:52 03/03/21 09:44 Oxycodone /Acetaminophen 5-325mg Tab PO 1 tab Q12H PRN Administration Pain, Moderate (4-6) Simethicone 80 mg 03/03/21 13:23 03/03/21 14:20 Simethicone 80 Mg Chew Tab PO 80 mg Q6H PRN Administration Gas pain Sodium Chloride 10 ml 03/01/21 22:00 03/03/21 22:00 Sodium Chloride 0.9% 10 Ml Flush Syringe IV 10 ml BID MICKIE Administration Sodium Chloride 10 ml 03/01/21 14:52 Sodium Chloride 0.9% 10 Ml Flush Syringe IV PRN PRN LINE FLUSH
[2021-03-04] MEDS: oxyCODONE /ACETAMINOPHEN 5-325MG TAB PO PRN (11:11)
--- NOTE | 2021-03-04 11:25 | Progress Note ---
Assessment and Plan Cultures: 03/01/2021 blood culture: No growth Urine culture: 10,000-100,000 mixed bacteria A/P: 30-year-old male with extreme morbid obesity, obesity hypoventilation syndrome: #Sepsis: Remains with leukocytosis, fever improving; secondary to perineal abscess. #Perineal abscess, also question of possible prostatic abscess: Perineal induration + with scant drainage. General surgery and urology consulted. Denies MSM behavior, no history of STDs. Heterosexual. Denies any similar infections in the past. CT shows 4.4 x 4.1 x 4.7 cm perineal collection extending to the left gluteus, but no other area of collection 3.8 cm. inferiorly. #UTI: UA showed pyuria. Urine culture with mixed bacteria. #Extreme morbid obesity Recs: -Continue cefepime, Flagyl and vancomycin -Pain is not controlled, consider surgical reevaluation for I&D -f/u cultures Lynn Johnson MD [facility] ([facility]) Office [phone] Subjective Date of service: 03/04/21 Principal diagnosis: perineal abscess Interval history: Patient is now feeling better. Reports perineal pain is 7 out of 10, no real improvement. Fever is improving. Objective - Exam Narrative Exam: General appearance: Alert in NAD pleasant Eyes: anicteric sclerae, moist conjunctivae; no lid-lag; PERRLA HENT: Normocephalic, Atraumatic; normal external ears, nares open, oropharynx clear Neck: supple, tracheal midline, no JVD Lungs: CTA, with normal respiratory effort and no intercostal retractions CV: RRR no murmur Abdomen: Soft, non-tender; no masses or hepatosplenomegaly Extremities: no edema, no cyanosis Skin: Bilateral perineal indurated edema very tender Psych: no agitated Neuro: alert and oriented x 3. Moving all extermities - Constitutional Vitals: Vital Signs Temp Pulse Resp BP Pulse Ox 98.5 F 104 H 18 137/77 97 03/04/21 05:11 03/04/21 05:11 03/04/21 05:11 03/04/21 05:11 03/04/21 08:09 Temperature -Last 24 Hours Temperature 98.5 F Temperature 99.5 F Temperature 99.6 F - Labs CBC & Chem 7: 03/03/21 07:42 03/03/21 07:42
[2021-03-04] MEDS: SIMETHICONE 80 MG CHEW TAB PO PRN ×2 (15:17→22:28)
[2021-03-04] MEDS: HYDROmorphone 1 MG/1 ML INJ IV PRN ×2 (15:18→22:28)
[2021-03-04] MEDS: ACETAMINOPHEN 325 MG TAB PO PRN (18:34)
[2021-03-05] MEDS: oxyCODONE /ACETAMINOPHEN 5-325MG TAB PO PRN (01:26)
[2021-03-05] MEDS: CEFEPIME/NS 2 GM/100 ML 2 GM/100 ML BAG IV SCH ×3 (06:00→21:39)
[2021-03-05] MEDS: VANCOMYCIN 1,500 MG in SODIUM CHLORIDE 0.9% 500 ML 500 ML IV SCH ×3 (06:00→21:39)
[2021-03-05] MEDS: metroNIDAZOLE/NS 500 MG/100 ML 500 MG/100 ML BAG IV SCH ×3 (07:21→21:38)
[2021-03-05] MEDS: FUROSEMIDE 40 MG/4 ML INJ IV SCH (10:41)
--- NOTE | 2021-03-05 12:01 | Progress Note ---
Assessment and Plan Cultures: 03/01/2021 blood culture: No growth Urine culture: 10,000-100,000 mixed bacteria A/P: 30-year-old male with extreme morbid obesity, obesity hypoventilation syndrome: #Sepsis: Remains with leukocytosis, fever improving; secondary to perineal abscess. #Perineal abscess, also question of possible prostatic abscess: Perineal induration + with scant drainage. General surgery and urology consulted. Denies MSM behavior, no history of STDs. Heterosexual. Denies any similar infections in the past. CT shows 4.4 x 4.1 x 4.7 cm perineal collection extending to the left gluteus, but no other area of collection 3.8 cm. inferiorly. #UTI: UA showed pyuria. Urine culture with mixed bacteria. #Extreme morbid obesity Recs: -Continue cefepime, Flagyl and vancomycin -Await urology consultation. -f/u cultures Daniela Richard MD [facility] ([facility]) O: [phone] F: [phone] Subjective Date of service: 03/05/21 Principal diagnosis: perineal abscess Interval history: Febrile to 100.4 with a white count of 13.9. Objective - Exam Narrative Exam: Physical Exam: Constitutional: Alert, cooperative. No acute distress Head, Ears, Nose: Normocephalic, atraumatic. Eyes: Conjunctivae/corneas clear. No icterus. Neck: Supple, no meningeal signs Oral: dentition fair, no thrush Cardiovascular: S1, S2 normal. Respiratory: Good air entry, clear to auscultation bilaterally GI: Soft, non-tender; bowel sounds normal. No peritoneal signs. Musculoskeletal: No pedal edema, no cyanosis. Skin: No rash or abscess Hem/Lymphatic: No palpable cervical or supraclavicular nodes. No lymphangitis Psych: Mood ok. Affect normal Neurological: Awake, alert, oriented. No gross abnormality - Constitutional Vitals: Vital Signs Temp Pulse Resp BP Pulse Ox 98.9 F 97 H 20 153/88 94 03/05/21 11:18 03/05/21 11:18 03/05/21 11:18 03/05/21 11:18 03/05/21 11:18 Temperature -Last 24 Hours Temperature 98.9 F Temperature 100.4 F Temperature 99.9 F Temperature 98.2 F - Labs CBC & Chem 7: 03/03/21 07:42 03/03/21 07:42
--- NOTE | 2021-03-05 12:15 | Progress Note ---
Assessment and Plan Assessment and plan: 30 YO Male with Super Morbid Obesity, Obesity Hypoventilation Syndrome presents to ED for evaluation. Patient reports I think I pulled something". Patient states that he has experienced pain at the base of his penis extending toward his rectum over the past 2 weeks with persistent and worsening symptoms over the same timeframe. Patient states that he was walking while carrying heavy packages and experienced a sudden onset of pain at the base of his penis. Patient transported to [facility] via private vehicle for further care and evaluation of the aforementioned symptoms. The patient was seen and evaluated in the emergency department. All lab and imaging studies reviewed. Patient underwent CT scan of the abdomen and pelvis and was found to have a perineal abscess, urinary tract infection complicated by systemic inflammatory response syndrome. Surgical team consulted in ED. Urology team consulted in ED. Patient admitted to medical floor and initiated on IV antibiotic therapy. Patient denies fever, chills, chest pain, palpitation, shortness of breath, trauma, or known ill contacts, or known exposure to COVID-19. No prior admission for review. No medication listed at time of admission for reconciliation. Past History Past Medical History: other (See HPI) Past Surgical History: No surgical history, Other (Reviewed) Social history: single. denies: smoking, alcohol abuse, prescription drug abuse (1) sepsis (2) perineal abscess Current Visit: Yes Status: Acute Plan to address problem: Surgery team consulted, urology team consulted. No surgical intervention at this time as per urology team. IV antibiotic therapy, further care and evaluation as per urology team. (3) Obesity hypoventilation syndrome Current Visit: Yes Status: Acute Plan to address problem: Balanced diet, increase physical activity at discharge, outpatient pulmonary follow-up for sleep study, outpatient bariatric surgery follow-up. (4) Acute cystitis Current Visit: Yes Status: Acute Qualifiers: Encounter type: initial encounter Plan to address problem: CBC, urinalysis, IV antibiotic therapy. (5) Systemic inflammatory response syndrome Current Visit: Yes Status: Acute Plan to address problem: CBC, CMP, urinalysis, IV antibiotic therapy, repeat CBC in a.m. (6) super morbid obese (7)DVT prophylaxis Current Visit: Yes Status: Acute Plan to address problem: SCDs bilateral lower extremities while in bed, patient is ambulatory 03/02: Patient this morning was found on CPAP. I am not sure if this is secondary to his obesity. Nevertheless we will obtain a chest x-ray will give him a dose of Lasix as he still does have some edematous area. He has an elevated leukocytosis stable despite antibiotics I will consult ID to follow on his management and they already saw him today. We are awaiting urology evaluation of also reached out to them as they are transaction processor counterpart was discu ssed with based on ER documentation. Surgery input is noted we will await urology evaluation for further decision making for now continue antibiotic therapy. 03/03: Patient seen this morning still intermittent pain still low-grade fever continue antibiotics. Discussed with vascular who will be ordering a CT to further evaluate the lower pelvic region as he believes that the initial CT did not go Lovenox. Also touch base with urology who has reviewed the imaging does not feel that there is any drainable fluid at this time cystoscopically, no other issues reported we will continue to monitor. Follow cultures. ABG consistent with hypoxia. Chest x-ray reviewed and is negative. Patient will likely need home O2 eval prior to discharge. We will give a dose of Lasix due to mild pitting edema noted 03/04: Awaiting surgical re-evaluation, continue abx, reached out to Urology again and they said to continue abx, will await their review of CT and also IR review. 03/05: Patient seen and examined still with low-grade fever continue antibiotics. Have reached out to urology again for review. They have been responsive corresponded with me initially noted that this fluid is not drainable but have requested that they reviewed the new CT scan and give a final recommendation. In the meantime we will continue antibiotics. History Interval history: Patient seen and examined this morning. No new complaints. Hospitalist Physical - Physical exam Narrative exam: VITAL SIGNS: Reviewed. GENERAL: The patient appears normally developed, super morbidly obese vital signs as documented. HEAD: No signs of head trauma. EYES: Pupils are equal. Extraocular motions intact. EARS: Hearing grossly intact. MOUTH: Oropharynx is normal. NECK: No adenopathy, no JVD. CHEST: Chest with clear breath sounds bilaterally. No wheezes, rales, or rhonchi. CARDIAC: Regular rate and rhythm. S1 and S2, without murmurs, gallops, or rubs. VASCULAR: No Edema. Peripheral pulses normal and equal in all extremities. ABDOMEN: Soft, non tender and non distended. No rebound or guarding, and no masses palpated. Bowel Sounds normal. MUSCULOSKELETAL: Good range of motion of all major joints. Extremities without clubbing, cyanosis or edema. exam: Present: normal inspection, other (Patient has significant tenderness to deep palpation in the perineal area, area is warm, slight erythema noted at the base of the buttocks, and around the perineal area, but no apparent induration or fluctuance.). Absent: testicular tenderness, urethral discharge, scrotal swelling, circumcision NEUROLOGIC EXAM: Alert and oriented x 3 No focal sensory or strength deficits. Speech normal. Follows commands. PSYCHIATRIC: Mood normal. SKIN: detail exam as documented in skin assessment - Constitutional Vitals: Temp Pulse Resp BP Pulse Ox 98.9 F 97 H 20 153/88 94 03/05/21 11:18 03/05/21 11:18 03/05/21 11:18 03/05/21 11:18 03/05/21 11:18 General appearance: Present: mild distress, obese Results - Labs CBC & Chem 7: 03/03/21 07:42 03/03/21 07:42 Labs: Laboratory Last Values WBC 13.9 K/mm3 (4.5-11.0) H 03/03/21 07:42 RBC 3.87 M/mm3 (3.65-5.03) 03/03/21 07:42 Hgb 11.5 gm/dl (11.8-15.2) L 03/03/21 07:42 Hct 34.7 % (35.5-45.6) L 03/03/21 07:42 MCV 90 fl (84-94) 03/03/21 07:42 MCH 30 pg (28-32) 03/03/21 07:42 MCHC 33 % (32-34) 03/03/21 07:42 RDW 12.9 % (13.2-15.2) L 03/03/21 07:42 Plt Count 314 K/mm3 (140-440) 03/03/21 07:42 Lymph % (Auto) 11.9 % (13.4-35.0) L 03/02/21 10:02 Angelina % (Auto) 10.8 % (0.0-7.3) H 03/02/21 10:02 Eos % (Auto) 1.0 % (0.0-4.3) 03/02/21 10:02 Baso % (Auto) 0.2 % (0.0-1.8) 03/02/21 10:02 Lymph # (Auto) 1.7 K/mm3 (1.2-5.4) 03/02/21 10:02 Angelina # (Auto) 1.5 K/mm3 (0.0-0.8) H 03/02/21 10:02 Eos # (Auto) 0.1 K/mm3 (0.0-0.4) 03/02/21 10:02 Baso # (Auto) 0.0 K/mm3 (0.0-0.1) 03/02/21 10:02 Add Manual Diff Complete 03/01/21 07:47 Total Counted 100 03/01/21 07:47 Seg Neutrophils % 76.1 % (40.0-70.0) H 03/02/21 10:02 Seg Neuts % (Manual) 65.0 % (40.0-70.0) 03/01/21 07:47 Band Neutrophils % 1.0 % 03/01/21 07:47 Lymphocytes % (Manual) 26.0 % (13.4-35.0) 03/01/21 07:47 Monocytes % (Manual) 7.0 % (0.0-7.3) 03/01/21 07:47 Basophils % (Manual) 1.0 % (0.0-1.8) 03/01/21 07:47 Nucleated RBC % Not Reportable 03/01/21 07:47 Seg Neutrophils # 10.6 K/mm3 (1.8-7.7) H 03/02/21 10:02 Seg Neutrophils # Man 8.4 K/mm3 (1.8-7.7) H 03/01/21 07:47 Band Neutrophils # 0.1 K/mm3 03/01/21 07:47 Lymphocytes # (Manual) 3.4 K/mm3 (1.2-5.4) 03/01/21 07:47 Abs React Lymphs (Man) 0.0 K/mm3 03/01/21 07:47 Monocytes # (Manual) 0.9 K/mm3 (0.0-0.8) H 03/01/21 07:47 Eosinophils # (Manual) 0.0 K/mm3 (0.0-0.4) 03/01/21 07:47 Basophils # (Manual) 0.1 K/mm3 (0.0-0.1) 03/01/21 07:47 Metamyelocytes # 0.0 K/mm3 03/01/21 07:47 Myelocytes # 0.0 K/mm3 03/01/21 07:47 Promyelocytes # 0.0 K/mm3 03/01/21 07:47 Blast Cells # 0.0 K/mm3 03/01/21 07:47 WBC Morphology Not Reportable 03/01/21 07:47 Hypersegmented Neuts Not Reportable 03/01/21 07:47 Hyposegmented Neuts Not Reportable 03/01/21 07:47 Hypogranular Neuts Not Reportable 03/01/21 07:47 Smudge Cells Not Reportable 03/01/21 07:47 Toxic Granulation Not Reportable 03/01/21 07:47 Toxic Vacuolation Not Reportable 03/01/21 07:47 Dohle Bodies Not Reportable 03/01/21 07:47 Pelger-Huet Anomaly Not Reportable 03/01/21 07:47 Dania Rods Not Reportable 03/01/21 07:47 Platelet Estimate Consistent w auto 03/01/21 07:47 Clumped Platelets Not Reportable 03/01/21 07:47 Plt Clumps, EDTA Not Reportable 03/01/21 07:47 Large Platelets Not Reportable 03/01/21 07:47 Giant Platelets Not Reportable 03/01/21 07:47 Platelet Satelliting Not Reportable 03/01/21 07:47 Plt Morphology Comment Not Reportable 03/01/21 07:47 RBC Morphology Not Reportable 03/01/21 07:47 Dimorphic RBCs Not Reportable 03/01/21 07:47 Polychromasia Not Reportable 03/01/21 07:47 Hypochromasia 1+ 03/01/21 07:47 Poikilocytosis Not Reportable 03/01/21 07:47 Anisocytosis Not Reportable 03/01/21 07:47 Microcytosis Not Reportable 03/01/21 07:47 Macrocytosis Not Reportable 03/01/21 07:47 Spherocytes Not Reportable 03/01/21 07:47 Pappenheimer Bodies Not Reportable 03/01/21 07:47 Sickle Cells Not Reportable 03/01/21 07:47 Target Cells Not Reportable 03/01/21 07:47 Tear Drop Cells Not Reportable 03/01/21 07:47 Ovalocytes Not Reportable 03/01/21 07:47 Helmet Cells Not Reportable 03/01/21 07:47 [place] Bodies Not Reportable 03/01/21 07:47 Peralta Rings Not Reportable 03/01/21 07:47 Rocky Cells Not Reportable 03/01/21 07:47 Bite Cells Not Reportable 03/01/21 07:47 Crenated Cell Not Reportable 03/01/21 07:47 Elliptocytes Not Reportable 03/01/21 07:47 Acanthocytes (Spur) Not Reportable 03/01/21 07:47 Rouleaux Not Reportable 03/01/21 07:47 Hemoglobin C Crystals Not Reportable 03/01/21 07:47 Schistocytes Not Reportable 03/01/21 07:47 Malaria parasites Not Reportable 03/01/21 07:47 [place] Bodies Not Reportable 03/01/21 07:47 Hem Pathologist Commnt No 03/01/21 07:47 ABG pH 7.434 pH Units (7.350-7.450) 03/02/21 17:20 ABG pCO2 39.4 mm Hg 03/02/21 17:20 ABG pO2 68.3 mm Hg (80.0-90.0) L 03/02/21 17:20 ABG HCO3 25.8 mmol/L (20.0-26.0) 03/02/21 17:20 ABG O2 Saturation 94.8 % (95.0-99.0) L 03/02/21 17:20 ABG O2 Content 10.7 (0.0-44) 03/02/21 17:20 ABG Base Excess 1.4 mmol/L (-2.0-3.0) 03/02/21 17:20 ABG Hemoglobin 8.1 gm/dl (14.0-18.0) L 03/02/21 17:20 ABG Carboxyhemoglobin 1.4 % (0.0-5.0) 03/02/21 17:20 ABG Methemoglobin 0.4 % (0.0-1.5) 03/02/21 17:20 Oxyhemoglobin 93.1 % (95.0-99.0) L 03/02/21 17:20 FiO2 21 % 03/02/21 17:20 Sodium 138 mmol/L (137-145) 03/03/21 07:42 Potassium 4.0 mmol/L (3.6-5.0) 03/03/21 07:42 Chloride 102.1 mmol/L (98-107) 03/03/21 07:42 Carbon Dioxide 23 mmol/L (22-30) 03/03/21 07:42 Anion Gap 17 mmol/L 03/03/21 07:42 BUN 9 mg/dL (9-20) 03/03/21 07:42 Creatinine 1.0 mg/dL (0.8-1.3) 03/03/21 07:42 Estimated GFR > 60 ml/min 03/03/21 07:42 BUN/Creatinine Ratio 9 % 03/03/21 07:42 Glucose 117 mg/dL (75-100) H 03/03/21 07:42 Lactic Acid 0.70 mmol/L (0.7-2.0) 03/01/21 11:21 Calcium 8.6 mg/dL (8.4-10.2) 03/03/21 07:42 Total Bilirubin 0.80 mg/dL (0.1-1.2) 03/01/21 07:47 AST 25 units/L (5-40) 03/01/21 07:47 ALT 26 units/L (7-56) 03/01/21 07:47 Alkaline Phosphatase 107 units/L (35-129) 03/01/21 07:47 Total Protein 7.9 g/dL (6.3-8.2) 03/01/21 07:47 Albumin 3.8 g/dL (3.9-5) L 03/01/21 07:47 Albumin/Globulin Ratio 0.9 % 03/01/21 07:47 Urine Color Yellow (Yellow) 03/01/21 07:55 Urine Turbidity Slightly-cloudy (Clear) 03/01/21 07:55 Urine pH 5.0 (5.0-7.0) 03/01/21 07:55 Ur Specific [place] 1.019 (1.003-1.030) 03/01/21 07:55 Urine Protein 30 mg/dl mg/dL (Negative) 03/01/21 07:55 Urine Glucose (UA) Neg mg/dL (Negative) 03/01/21 07:55 Urine Ketones Neg mg/dL (Negative) 03/01/21 07:55 Urine Blood Mod (Negative) 03/01/21 07:55 Urine Nitrite Neg (Negative) 03/01/21 07:55 Urine Bilirubin Neg (Negative) 03/01/21 07:55 Urine Urobilinogen 4.0 mg/dL (<2.0) 03/01/21 07:55 Ur Leukocyte Esterase Mod (Negative) 03/01/21 07:55 Urine WBC (Auto) 73.0 /HPF (0.0-6.0) H 03/01/21 07:55 Urine RBC (Auto) 3.0 /HPF (0.0-6.0) 03/01/21 07:55 U Epithel Cells (Auto) 26.0 /HPF (0-13.0) H 03/01/21 07:55 Urine Bacteria (Auto) 1+ /HPF (Negative) 03/01/21 07:55 Urine Mucus Few /HPF 03/01/21 07:55 Vancomycin Trough 11.5 ug/mL (5.0-20.0) 03/03/21 15:30 Microbiology: Microbiology 03/01/21 07:47 Peripheral/Venous Blood Culture - Preliminary NO GROWTH AFTER 4 DAYS 03/01/21 07:47 Peripheral/Venous Blood Culture - Preliminary NO GROWTH AFTER 4 DAYS [place]/IV: Voiding Method Urinal Active Medications - Current Medications Current Medications: Generic Name Dose Route Start Last Admin Trade Name Freq PRN Reason Stop Dose Admin Acetaminophen 650 mg 03/01/21 14:52 03/04/21 18:34 Acetaminophen 325 Mg Tab PO 650 mg Q4H PRN Administration Pain MILD(1-3)/Fever >100.5/ARREDONDO Albuterol 2.5 mg 03/01/21 14:52 Albuterol 2.5 Mg/3 Ml Nebu IH Q4HRT PRN Shortness Of Breath Furosemide 40 mg 03/02/21 16:00 03/05/21 10:41 Furosemide 40 Mg/4 Ml Inj IV 40 mg QDAY MICKIE Administration Hydromorphone HCl 0.5 mg 03/02/21 15:04 03/04/21 22:28 Hydromorphone 1 Mg/1 Ml Inj IV 0.5 mg Q6H PRN Administration Pain , Severe (7-10) Vancomycin HCl 1,500 mg/ 530 mls @ 265 mls/hr 03/02/21 14:00 03/05/21 06:00 Sodium Chloride IV 265 mls/hr Q8HR MICKIE Administration Metronidazole 500 mg in 100 mls @ 100 mls/hr 03/02/21 14:00 03/05/21 07:21 Flagyl 500 Mg/100 Ml IV 100 mls/hr Q8HR MICKIE Administration Protocol Cefepime HCl 2 gm in 100 mls @ 200 mls/hr 03/04/21 06:00 03/05/21 06:00 Cefepime/Ns 2 Gm/100 Ml IV 200 mls/hr Q8HR MICKIE Administration Protocol Ondansetron HCl 4 mg 03/01/21 14:52 03/01/21 20:29 Ondansetron 4 Mg/2 Ml Inj IV 4 mg Q8H PRN Administration Nausea And Vomiting Oxycodone/Acetaminophen 1 tab 03/01/21 14:52 03/05/21 01:26 Oxycodone /Acetaminophen 5-325mg Tab PO 1 tab Q12H PRN Administration Pain, Moderate (4-6) Simethicone 80 mg 03/03/21 13:23 03/04/21 22:28 Simethicone 80 Mg Chew Tab PO 80 mg Q6H PRN Administration Gas pain Sodium Chloride 10 ml 03/01/21 22:00 03/05/21 10:41 Sodium Chloride 0.9% 10 Ml Flush Syringe IV 10 ml BID MICKIE Administration Sodium Chloride 10 ml 03/01/21 14:52 Sodium Chloride 0.9% 10 Ml Flush Syringe IV PRN PRN LINE FLUSH
[2021-03-05] MEDS ORDERED: MAGNESIUM HYDROXIDE (MOM) ORAL LIQD UDC PO PRN (12:22)
[2021-03-05] MEDS: HYDROmorphone 1 MG/1 ML INJ IV PRN ×2 (13:00→21:39)
[2021-03-05 13:13] LABS: Hematocrit 35.9 % (35.5-45.6); Hemoglobin 12.3 gm/dl (11.8-15.2); Mean Corpuscular HGB Conc 34 % (32-34); Mean Corpuscular Volume 90 fl (84-94); Platelet Count 345 K/mm3 (140-440); Red Blood Count 3.97 M/mm3 (3.65-5.03); Red Cell Distribution Width 12.9 % (13.2-15.2)
[2021-03-05 13:30] LABS: BUN/Creatinine Ratio 11; Blood Urea Nitrogen 11 mg/dL (9-20); Calcium 8.8 mg/dL (8.4-10.2); Hemolysis Index 0
--- NOTE | 2021-03-05 14:05 | Consultation ---
History of Present Illness - Reason for Consult Consult date: 03/05/21 Groin pain and collection near prostate - History of Present Illness The patient is a 30 year-old male who presented with perineal pain. Imaging in the ER showed a hypoechoic lesion near the prostate or as a part of the apex of the prostate. The patient has been on antibiotics with slight improvement in the size of the lesion. He denies voiding symptoms. His urine is clear and a urine culture is contaminated. His blood culture is negative. The patient reports improvement since starting antibiotics. Past History Past Medical History: No medical history, other (See HPI) Past Surgical History: No surgical history, Other (Reviewed) Social history: single. denies: smoking, alcohol abuse, prescription drug abuse Family history: hypertension Medications and Allergies Allergies Allergy/AdvReac Type Severity Reaction Status Date / Time No Known Allergies Allergy Unverified 03/01/21 07:42 Home Medications Medication Instructions Recorded Confirmed Last Taken Type No Known Home Medications [No 03/03/21 03/03/21 Unknown History Reported Home Medications] Active Meds: Active Medications Acetaminophen (Acetaminophen 325 Mg Tab) 650 mg PO Q4H PRN PRN Reason: Pain MILD(1-3)/Fever >100.5/ARREDONDO Last Admin: 03/04/21 18:34 Dose: 650 mg Documented by: Albuterol (Albuterol 2.5 Mg/3 Ml Nebu) 2.5 mg IH Q4HRT PRN PRN Reason: Shortness Of Breath Bisacodyl (Bisacodyl 5 Mg Tab) 10 mg PO QDAY PRN PRN Reason: Constipation Last Admin: 03/05/21 13:04 Dose: 10 mg Documented by: Furosemide (Furosemide 40 Mg/4 Ml Inj) 40 mg IV QDAY [facility] Last Admin: 03/05/21 10:41 Dose: 40 mg Documented by: Hydromorphone HCl (Hydromorphone 1 Mg/1 Ml Inj) 0.5 mg IV Q6H PRN PRN Reason: Pain , Severe (7-10) Last Admin: 03/05/21 13:00 Dose: 0.5 mg Documented by: Vancomycin HCl 1,500 mg/ (Sodium Chloride) 530 mls @ 265 mls/hr IV Q8HR [facility] Last Admin: 03/05/21 06:00 Dose: 265 mls/hr Documented by: Metronidazole (Flagyl 500 Mg/100 Ml) 500 mg in 100 mls @ 100 mls/hr IV Q8HR MICKIE; Protocol Last Admin: 03/05/21 13:04 Dose: 100 mls/hr Documented by: Cefepime HCl (Cefepime/Ns 2 Gm/100 Ml) 2 gm in 100 mls @ 200 mls/hr IV Q8HR MICKIE; Protocol Last Admin: 03/05/21 06:00 Dose: 200 mls/hr Documented by: Magnesium Hydroxide (Magnesium Hydroxide (Mom) Oral Liqd Udc) 30 ml PO Q4H PRN PRN Reason: Constipation Ondansetron HCl (Ondansetron 4 Mg/2 Ml Inj) 4 mg IV Q8H PRN PRN Reason: Nausea And Vomiting Last Admin: 03/01/21 20:29 Dose: 4 mg Documented by: Oxycodone/Acetaminophen (Oxycodone /Acetaminophen 5-325mg Tab) 1 tab PO Q12H PRN PRN Reason: Pain, Moderate (4-6) Last Admin: 03/05/21 01:26 Dose: 1 tab Documented by: Simethicone (Simethicone 80 Mg Chew Tab) 80 mg PO Q6H PRN PRN Reason: Gas pain Last Admin: 03/04/21 22:28 Dose: 80 mg Documented by: Sodium Chloride (Sodium Chloride 0.9% 10 Ml Flush Syringe) 10 ml IV BID MICKIE Last Admin: 03/05/21 10:41 Dose: 10 ml Documented by: Sodium Chloride (Sodium Chloride 0.9% 10 Ml Flush Syringe) 10 ml IV PRN PRN PRN Reason: LINE FLUSH Review of Systems All systems: negative Constitutional: fever Genitourinary Male: genital pain Exam - Constitutional Vitals: Temp Pulse Resp BP Pulse Ox 98.9 F 97 H 20 153/88 94 03/05/21 11:18 03/05/21 11:18 03/05/21 11:18 03/05/21 11:18 03/05/21 11:18 General appearance: Present: no acute distress - EENT Eyes: Present: PERRL, EOM intact ENT: hearing intact, clear oral mucosa, dentition normal - Neck Neck: Present: supple, normal ROM - Respiratory Respiratory effort: normal - Cardiovascular Rhythm: regular - Extremities Extremities: no ischemia, pulses intact, pulses symmetrical, No edema, Full ROM Peripheral Pulses: within normal limits - Abdominal General gastrointestinal: Present: soft, non-tender, other (Obese) Male genitourinary: Present: normal (There is no discrenible or palpable lesion in the perineum or scortum. Nothing to drain.) - Rectal Rectal Exam: deferred - Integumentary Integumentary: Present: clear, warm, dry - Musculoskeletal Musculoskeletal: strength equal bilaterally - Psychiatric Psychiatric: appropriate mood/affect - Neurologic Neurologic: CNII-XII intact Results - Labs CBC & Chem 7: 03/05/21 12:57 03/05/21 12:57 Labs: Abnormal lab results 03/05/21 03/05/21 Range/Units 12:57 12:57 WBC 12.8 H (4.5-11.0) K/mm3 RDW 12.9 L (13.2-15.2) % Glucose 102 H (75-100) mg/dL - Imaging and Cardiology CT scan - abdomen: report reviewed, image reviewed CT scan - pelvis: report reviewed, image reviewed (Imaging shows hypoechoic lesion improving with antibiotics.) Assessment and Plan - Patient Problems (1) Perineal abscess Current Visit: Yes Status: Acute Plan to address problem: Continue antibiotics, nothing to drain at this point. No need for urologic intervention. Outpatient follow-up will be needed. (2) Prostatic abscess Current Visit: Yes Status: Acute Plan to address problem: Continue antibiotics, nothing to drain. Outpatient follow-up.
[2021-03-06] MEDS: oxyCODONE /ACETAMINOPHEN 5-325MG TAB PO PRN ×2 (04:57→15:58)
[2021-03-06] MEDS: CEFEPIME/NS 2 GM/100 ML 2 GM/100 ML BAG IV SCH ×2 (05:00→15:00)
[2021-03-06] MEDS: metroNIDAZOLE/NS 500 MG/100 ML 500 MG/100 ML BAG IV SCH ×2 (05:00→14:24)
[2021-03-06] MEDS: VANCOMYCIN 1,500 MG in SODIUM CHLORIDE 0.9% 500 ML 500 ML IV SCH (05:16)
[2021-03-06 06:18] LABS: Hematocrit 33.7 % (35.5-45.6); Hemoglobin 11.6 gm/dl (11.8-15.2); Mean Corpuscular HGB Conc 34 % (32-34); Mean Corpuscular Volume 90 fl (84-94); Platelet Count 353 K/mm3 (140-440); Red Blood Count 3.77 M/mm3 (3.65-5.03); Red Cell Distribution Width 12.8 % (13.2-15.2)
[2021-03-06 06:27] LABS: BUN/Creatinine Ratio 14; Blood Urea Nitrogen 13 mg/dL (9-20); Calcium 8.7 mg/dL (8.4-10.2); Hemolysis Index 0
[2021-03-06] MEDS: FUROSEMIDE 40 MG/4 ML INJ IV SCH (11:19)
[2021-03-06] MEDS: HYDROmorphone 1 MG/1 ML INJ IV PRN (11:20)
--- NOTE | 2021-03-06 11:23 | Progress Note ---
Assessment and Plan Cultures: 03/01/2021 blood culture: No growth Urine culture: 10,000-100,000 mixed bacteria A/P: 30-year-old male with extreme morbid obesity, obesity hypoventilation syndrome: #Sepsis: Remains with leukocytosis, fever improving; secondary to perineal abscess. #Perineal abscess, also question of possible prostatic abscess: Perineal induration + with scant drainage. General surgery and urology consulted. Denies MSM behavior, no history of STDs. Heterosexual. Denies any similar infections in the past. CT shows 4.4 x 4.1 x 4.7 cm perineal collection extending to the left gluteus, but no other area of collection 3.8 cm. inferiorly. #UTI: UA showed pyuria. Urine culture with mixed bacteria. #Extreme morbid obesity Recs: -Continue cefepime, Flagyl and vancomycin -no urological procedure planned -Would DC with Levaquin 750mg q24h and Augmentin 875/125mg q12h to complete 3 weeks. -f/u cultures G. Christi Richard MD [facility] O: [phone] F: [phone] Subjective Date of service: 03/06/21 Principal diagnosis: perineal abscess Interval history: Afebrile over the last 24 hours, white count 12.3. Cultures all remain negative. Objective - Exam Narrative Exam: Physical Exam: Constitutional: Alert, cooperative. No acute distress Head, Ears, Nose: Normocephalic, atraumatic. Eyes: Conjunctivae/corneas clear. No icterus. Neck: Supple, no meningeal signs Oral: dentition fair, no thrush Cardiovascular: S1, S2 normal. Respiratory: Good air entry, clear to auscultation bilaterally GI: Soft, non-tender; bowel sounds normal. No peritoneal signs. Musculoskeletal: No pedal edema, no cyanosis. Skin: No rash or abscess Hem/Lymphatic: No palpable cervical or supraclavicular nodes. No lymphangitis Psych: Mood ok. Affect normal Neurological: Awake, alert, oriented. No gross abnormality - Constitutional Vitals: Vital Signs Temp Pulse Resp BP Pulse Ox 99.2 F 84 18 127/59 94 03/06/21 05:36 03/06/21 05:36 03/06/21 05:57 03/06/21 05:36 03/06/21 05:36 Temperature -Last 24 Hours Temperature 99.2 F Temperature 99.8 F - Labs CBC & Chem 7: 03/06/21 05:20 03/06/21 05:20 Labs: Abnormal lab results 03/05/21 03/05/21 03/06/21 Range/Units 12:57 12:57 05:20 WBC 12.8 H 12.3 H (4.5-11.0) K/mm3 Hgb 11.6 L (11.8-15.2) gm/dl Hct 33.7 L (35.5-45.6) % RDW 12.9 L 12.8 L (13.2-15.2) % Glucose 102 H (75-100) mg/dL
[2021-03-06] MEDS ORDERED: VANCOMYCIN 1,500 MG in SODIUM CHLORIDE 0.9% 500 ML 500 ML IV SCH (16:00)
--- NOTE | 2021-03-06 16:46 | Discharge Summary ---
Providers - Providers Date of Admission: 03/01/21 14:52 Date of discharge: 03/06/21 Attending physician: ANYA COOK 03/01/21 12:33 Consult to Physician [CONS] Stat Comment: Consulting Provider: LINDA CLAIRE Physician Instructions: Reason For Exam: Perineal abscess close to prostate and urethra 03/01/21 12:34 Consult to Physician [CONS] Stat Comment: Consulting Provider: QUINCY WIGGINS Physician Instructions: Reason For Exam: Perineal abscess 03/02/21 10:04 Consult to Physician [CONS] Routine Comment: Consulting Provider: BENJAMIN DENNISON Physician Instructions: Reason For Exam: perineal abscess 03/02/21 14:59 Consult to Physician [CONS] Routine Comment: Consulting Provider: AMY GIBSON Physician Instructions: Reason For Exam: perianal abscess 03/02/21 15:16 Consult to Physician [CONS] Routine Comment: Consulting Provider: SHARAD ANDREWS Physician Instructions: Reason For Exam: PERIANAL ABSCESS Primary care physician: HEEL ATTACHER Hospitalization Reason for admission: Perineal abscess Condition: Stable Pertinent studies: CT abdomen and pelvis CT pelvis chest x-ray Hospital course: (1) sepsis (2) perineal abscess Surgery team consulted, urology team consulted. No surgical intervention at this time as per urology team. IV antibiotic therapy, further care and evaluation as per urology team. (3) Obesity hypoventilation syndrome Balanced diet, increase physical activity at discharge, outpatient pulmonary follow-up for sleep study, outpatient bariatric surgery follow-up. (4) Acute cystitis Current Visit: Yes Status: Acute CBC, urinalysis, IV antibiotic therapy. (5) Systemic inflammatory response syndrome CBC, CMP, urinalysis, IV antibiotic therapy, repeat CBC in a.m. (6) morbidly obese; BMI 55.8 (7) possible obstructive sleep apnea Disposition: 30 STILL A PATIENT Final Discharge Diagnosis (Prints w/discharge instructions): Perineal abscess. Sepsis secondary to perianal abscess. Morbid obesity BMI 55.8. Febrile illness. Leukocytosis Time spent for discharge: 35 min Core Measure Documentation - Palliative Care Palliative Care/ Comfort Measures: Not Applicable Exam - Constitutional Vitals: Temp Pulse Resp BP Pulse Ox 98.8 F 91 H 18 153/84 96 03/06/21 11:26 03/06/21 11:26 03/06/21 11:26 03/06/21 11:26 03/06/21 11:26 Plan Diet: regular Additional Instructions: Advised to follow with primary care physician, general surgeon, urology, infectious disease physician per schedule. Advised weight reduction when you are medically stable. If you have worsening symptoms contact MD or go to the nearest emergency room Follow up with: LINDA CLAIRE MD [Staff Physician] - 14 Days PHAM BUENO MD [Staff Physician] - 14 Days PRIMARY CARE, [Primary Care Provider] - 3-5 Days QUINCY WIGGINS MD [Staff Physician] - 7 Days Prescriptions: Amoxicillin/Potassium Clav [Augmentin 875-125 Tablet] 1 each PO Q12H #32 tablet levoFLOXacin [Levaquin] 750 mg PO QDAY #16 tablet oxyCODONE /ACETAMINOPHEN [Percocet 5/325 mg] 1 tab PO Q12H PRN #20 tablet PRN Reason: Pain, Moderate (4-6)
[2021-03-06 17:47] VITALS: BP 141/87
== END 2021-03-06 18:24 | disposition home or self-care (01) | DRG 872 ==
LOC: ED 07:05 → 3A 14:52
PROVIDERS: ADMIT Internal Medicine; ATTEND Internal Medicine
PROC: 4A033R1 Measurement of Arterial Saturation, Peripheral, Percutaneous Approach (ICD-10-PCS; 2021-02-26)
PROC: 5A09357 Assistance with Respiratory Ventilation, Less than 24 Consecutive Hours, Continuous Positive Airway Pressure (ICD-10-PCS; principal; 2021-03-01)
PROC: 5A09357 Assistance with Respiratory Ventilation, Less than 24 Consecutive Hours, Continuous Positive Airway Pressure (ICD-10-PCS; 2021-03-03)
PROC: 5A09357 Assistance with Respiratory Ventilation, Less than 24 Consecutive Hours, Continuous Positive Airway Pressure (ICD-10-PCS; 2021-03-04)
PROC: 5A09357 Assistance with Respiratory Ventilation, Less than 24 Consecutive Hours, Continuous Positive Airway Pressure (ICD-10-PCS; 2021-03-06)
DX: A41.9 Sepsis, unspecified organism (principal); N39.0 Urinary tract infection, site not specified; L02.215 Cutaneous abscess of perineum; E66.2 Morbid (severe) obesity with alveolar hypoventilation; Z68.43 Body mass index [BMI] 50.0-59.9, adult; R65.10 Systemic inflammatory response syndrome (SIRS) of non-infectious origin without acute organ dysfunction; Z20.822 Contact with and (suspected) exposure to COVID-19
CPT/HCPCS: 36415; 36600; 71045; 72193; 74177; 80048; 80053; 80202; 81001; 82140; 82803; 85007; 85025; 85027; 87040; 87086; 94660; G0378; J0692; J0696; J1170; J1940; J2270; J2405; J2543; J3370; J7030; J7040; Q9967

== ENCOUNTER 2021-03-08 15:54 | Inpatient (IN) | payer SELFPAY ==
[2021-03-08] MEDS ORDERED: KETOROLAC 30 MG/1 ML INJ IV ONE ×2 (17:26→21:30)
[2021-03-08] MEDS ORDERED: MORPHINE 4 MG/1 ML INJ IV ONE ×2 (17:41→21:30)
[2021-03-08] MEDS ORDERED: ONDANSETRON 4 MG/2 ML INJ IV ONE ×2 (17:41→21:30)
[2021-03-08 17:49] LABS: Bilirubin,Urine NEG (Negative); Blood,Urine SM (Negative); Color,Urine Yellow (Yellow); Urobilinogen,Urine < 2.0 mg/dL (<2.0)
[2021-03-08 17:54] LABS: Basophils # (Auto) 0.1 K/mm3 (0.0-0.1); Basophils % (Auto) 0.7 % (0.0-1.8); Eosinophils # (Auto) 0.4 K/mm3 (0.0-0.4); Eosinophils % (Auto) 2.5 % (0.0-4.3); Hematocrit 38.5 % (35.5-45.6); Hemoglobin 12.7 gm/dl (11.8-15.2); Lymphocytes # (Auto) 2.8 K/mm3 (1.2-5.4); Lymphocytes % (Auto) 18.6 % (13.4-35.0); Mean Corpuscular HGB Conc 33 % (32-34); Mean Corpuscular Volume 90 fl (84-94); Monocytes # (Auto) 1.6 K/mm3 (0.0-0.8); Monocytes % (Auto) 10.5 % (0.0-7.3); Platelet Count 450 K/mm3 (140-440); Red Blood Count 4.28 M/mm3 (3.65-5.03)
[2021-03-08 18:09] LABS: BUN/Creatinine Ratio 11; Blood Urea Nitrogen 13 mg/dL (9-20); Calcium 9.2 mg/dL (8.4-10.2); Hemolysis Index 12
[2021-03-08] MEDS ORDERED: PIPERACIL/TAZOBACTA 4.5/NS 100 4.5 GM/100 ML VIAL IV ONE ×2 (18:41→21:30)
--- NOTE | 2021-03-08 20:31 | Cat Scan Report ---
CT PELVIS WITH CONTRAST HISTORY: compare to recent abscess. COMPARISON: CT pelvis from 03/03/2021 TECHNIQUE: CT images of the pelvis were obtained following administration of intravenous contrast. A ll CT scans at this location are performed using CT dose reduction for ALARA by means of automated ex posure control. CONTRAST: 100 ml of intravenous contrast administered. FINDINGS: Pelvis: The left paracentral perirectal abscess has enlarged since the previous exam and now measure s approximately 7.6 x 3.7 cm in maximal transverse dimensions on image #119 of series #2. There is al so multiloculation with another abscess component measuring up to 5.7 x 4.0 cm closer to the pelvic f leigh ann musculature on image #109. The abscess extends to the region of the anus and there is surroundi ng inflammatory stranding in the subcutaneous fat as well as skin induration over the left gluteal cl eft. No subcutaneous gas identified. No significant incidental soft tissue findings in the deep pelvis. No acute osseous abnormality identified. IMPRESSION: 1. Interval enlargement of the multiloculated left paracentral perirectal abscess. Signer Name: Naseem Chapman MD Signed: 03/08/2021 8:27 PM Workstation Name: [id number]
--- NOTE | 2021-03-08 21:27 | Emergency Department Report ---
ED General Adult HPI - General Chief complaint: Skin/Abscess/Foreign Body Stated complaint: INFECTED WOUND Time Seen by Provider: 03/08/21 17:16 Source: patient Mode of arrival: Ambulatory Limitations: No Limitations - History of Present Illness Initial comments: Patient is a 30-year-old F Burmese male with a past medical history of morbid obesity hypertension who is presenting with groin pain. Patient was admitted to the hospital and discharged 2 days ago with a perirectal/periprosthetic abscess. Appears as though general surgery and urology both suggested medical management with antibiotics. Patient states he was started to feel somewhat better which is why he was discharged. White count had decreased. Infectious disease suggested putting the patient on Flagyl and Augmentin. Fortunately the patient states he could not afford the antibiotics which were approximately $500 and he has not had any since he is left. Patient states he is having subjective fevers again and feels fatigued. He is having bowel movements. Patient states he is continued to have some discomfort with urinating. Denies any nausea or vomiting cough cold or congestion. Severity scale (0 -10): 10 - Related Data Previous Rx's Medication Instructions Recorded Last Taken Type Amoxicillin/Potassium Clav 1 each PO Q12H #32 tablet 03/06/21 Unknown Rx [Augmentin 875-125 Tablet] levoFLOXacin [Levaquin] 750 mg PO QDAY #16 tablet 03/06/21 Unknown Rx oxyCODONE /ACETAMINOPHEN [Percocet 1 tab PO Q12H PRN #20 tablet 03/06/21 Unknown Rx 5/325 mg] Allergies Allergy/AdvReac Type Severity Reaction Status Date / Time No Known Allergies Allergy Unverified 03/01/21 07:42 ED Review of Systems ROS: Stated complaint: INFECTED WOUND Other details as noted in HPI Comment: All other systems reviewed and negative ED Past Medical Hx - Past Medical History Hx HIV: No - Social History Smoking Status: Never Smoker - Medications Home Medications: Home Medications Medication Instructions Recorded Confirmed Last Taken Type Amoxicillin/Potassium Clav 1 each PO Q12H #32 tablet 03/06/21 Unknown Rx [Augmentin 875-125 Tablet] levoFLOXacin [Levaquin] 750 mg PO QDAY #16 tablet 03/06/21 Unknown Rx oxyCODONE /ACETAMINOPHEN [Percocet 1 tab PO Q12H PRN #20 tablet 03/06/21 Unknown Rx 5/325 mg] ED Physical Exam - General Limitations: No Limitations General appearance: alert, in no apparent distress - Head Head exam: Present: atraumatic, normocephalic - Eye Eye exam: Present: normal appearance, PERRL, EOMI - ENT ENT exam: Present: mucous membranes moist - Neck Neck exam: Present: normal inspection - Respiratory Respiratory exam: Present: normal lung sounds bilaterally. Absent: respiratory distress, wheezes, rales, rhonchi - Cardiovascular Cardiovascular Exam: Present: regular rate, normal rhythm, normal heart sounds. Absent: systolic murmur, diastolic murmur, rubs, gallop - GI/Abdominal GI/Abdominal exam: Present: soft, normal bowel sounds. Absent: distended, tenderness, guarding, rebound - Rectal Rectal exam: Present: deferred, other (Patient has some swelling to the left buttock inferiorly which is indurated and firm with warmth. No fluctuance in this region. No significant pain at the perineum) - External exam: Present: normal external exam. Absent: erythema, swelling - Extremities Exam Extremities exam: Present: normal inspection - Back Exam Back exam: Present: normal inspection - Neurological Exam Neurological exam: Present: alert, oriented X3 - Psychiatric Psychiatric exam: Present: normal affect, normal mood - Skin Skin exam: Present: warm, dry, intact, normal color. Absent: rash ED Course Vital Signs 03/08/21 16:04 Temperature 97.2 F L Pulse Rate 82 Respiratory 16 Rate Blood Pressure 138/72 [Left] O2 Sat by Pulse 98 Oximetry ED Medical Decision Making - Lab Data Result diagrams: 03/08/21 17:32 03/08/21 17:32 Lab Results 03/08/21 03/08/21 03/08/21 Range/Units 17:32 17:32 Unknown WBC 14.9 H (4.5-11.0) K/mm3 RBC 4.28 (3.65-5.03) M/mm3 Hgb 12.7 (11.8-15.2) gm/dl Hct 38.5 (35.5-45.6) % MCV 90 (84-94) fl MCH 30 (28-32) pg MCHC 33 (32-34) % RDW 13.0 L (13.2-15.2) % Plt Count 450 H (140-440) K/mm3 Lymph % (Auto) 18.6 (13.4-35.0) % Lynn % (Auto) 10.5 H (0.0-7.3) % Eos % (Auto) 2.5 (0.0-4.3) % Baso % (Auto) 0.7 (0.0-1.8) % Lymph # (Auto) 2.8 (1.2-5.4) K/mm3 Lynn # (Auto) 1.6 H (0.0-0.8) K/mm3 Eos # (Auto) 0.4 (0.0-0.4) K/mm3 Baso # (Auto) 0.1 (0.0-0.1) K/mm3 Seg Neutrophils % 67.7 (40.0-70.0) % Seg Neutrophils # 10.1 H (1.8-7.7) K/mm3 Sodium 135 L (137-145) mmol/L Potassium 3.9 (3.6-5.0) mmol/L Chloride 97.3 L (98-107) mmol/L Carbon Dioxide 24 (22-30) mmol/L Anion Gap 18 mmol/L BUN 13 (9-20) mg/dL Creatinine 1.2 (0.8-1.3) mg/dL Estimated GFR > 60 ml/min BUN/Creatinine Ratio 11 % Glucose 96 (75-100) mg/dL Calcium 9.2 (8.4-10.2) mg/dL Urine Color Yellow (Yellow) Urine Turbidity Clear (Clear) Urine pH 6.0 (5.0-7.0) Ur Specific [place] 1.017 (1.003-1.030) Urine Protein 30 mg/dl (Negative) mg/dL Urine Glucose (UA) Neg (Negative) mg/dL Urine Ketones Neg (Negative) mg/dL Urine Blood Sm (Negative) Urine Nitrite Neg (Negative) Urine Bilirubin Neg (Negative) Urine Urobilinogen < 2.0 (<2.0) mg/dL Ur Leukocyte Esterase Neg (Negative) Urine WBC (Auto) 3.0 (0.0-6.0) /HPF Urine RBC (Auto) 2.0 (0.0-6.0) /HPF U Epithel Cells (Auto) 2.0 (0-13.0) /HPF - Radiology Data [facility] [address] [place] [address] Cat Scan Report Signed Patient: JOSE WEBSTER MR#: [id number] 0 : 1990 Acct:[id number] Age/Sex: 30 / M ADM Date: 03/08/21 Loc: ED Attending Dr: Ordering Physician: FALGUNI MOTLEY MD Date of Service: 03/08/21 Procedure(s): CT pelvis w con Accession Number(s): [id number] cc: FALGUNI MOTLEY MD CT PELVIS WITH CONTRAST HISTORY: compare to recent abscess. COMPARISON: CT pelvis from 03/03/2021 TECHNIQUE: CT images of the pelvis were obtained following administration of intravenous contrast. All CT scans at this location are performed using CT dose reduction for ALARA by means of automated exposure control. CONTRAST: 100 ml of intravenous contrast administered. FINDINGS: Pelvis: The left paracentral perirectal abscess has enlarged since the previous exam and now measures approximately 7.6 x 3.7 cm in maximal transverse dimensions on image #119 of series #2. There is also multiloculation with another abscess component measuring up to 5.7 x 4.0 cm closer to the pelvic floor musculature on image #109. The abscess extends to the region of the anus and there is surrounding inflammatory stranding in the subcutaneous fat as well as skin induration over the left gluteal cleft. No subcutaneous gas identified. No significant incidental soft tissue findings in the deep pelvis. No acute osseous abnormality identified. IMPRESSION: 1. Interval enlargement of the multiloculated left paracentral perirectal abscess. Signer Name: Naseem Chapman MD Signed: 03/08/2021 8:27 PM Workstation Name: [id number] 03/03/21 CT findings as follows FINDINGS: 4.4 x 4.1 x 4.7 cm peripherally enhancing collection is again seen in the perineum, just below the base of the prostate gland. This appears to extend from the left perianal region with asymmetric soft tissue thickening and stranding of the left gluteal fold. Additional peripherally enhancing collection seen more inferiorly measuring up to 3.8 cm (series 3 image 114). - Medical Decision Making Patient is a 30-year-old F Burmese male who is presenting for the second time for an abscess in his pelvis. CT findings show that the abscess appears to have grown in size. Patient's white count only slightly elevated from levels that he was discharged. Patient to be started on Zosyn and Levaquin. Is discussed the case with Dr. Land and we will admit the patient for further management. Critical care attestation.: If time is entered above; I have spent that time in minutes in the direct care of this critically ill patient, excluding procedure time. ED Disposition Clinical Impression: Parvin-rectal abscess Disposition: ADMITTED INPATIENT Is pt being admited?: Yes Does the pt Need Aspirin: No Condition: Stable Referrals: PRIMARY CARE, [Primary Care Provider] - 3-5 Days Time of Disposition: 21:36
[2021-03-08] MEDS ORDERED: SODIUM CHLORIDE 0.9% 1000 ML 1,000 ML IV SCH (21:45)
[2021-03-08] MEDS ORDERED: ONDANSETRON 4 MG/2 ML INJ IV PRN (21:48)
[2021-03-08] MEDS ORDERED: ACETAMINOPHEN 325 MG TAB PO PRN (21:48)
--- NOTE | 2021-03-08 21:56 | History and Physical Report ---
History of Present Illness Date of examination: 03/08/21 Date of admission: 03/08/21 Chief complaint: Perirectal abscess History of present illness: 30-year male with history of morbid obesity hypertension hypoventilation syndrome was brought to the emergency room because of groin pain. Patient was admitted to the hospital and discharged 2 days ago with a perirecta l/periprosthetic abscess. Appears as though general surgery and urology both suggested medical management with antibiotics. Patient states he was started to feel somewhat better which is why he was discharged. White count had decreased. Infectious disease suggested putting the patient on Flagyl and Augmentin. Fortunately the patient states he could not afford the antibiotics which were approximately $500 and he has not had any since he is left. Patient states he is having subjective fevers again and feels fatigued. He is having bowel movements. Patient states he is continued to have some discomfort with urinating. Denies any nausea or vomiting cough cold or congestion. In the emergency room CT scan of the pelvis showed interval enlargement of the multiloculated left paracentral perirectal abscess. We will going to admit the patient to consult surgery Dr. Land and infectious disease to see the patient Med rec is done Past History Past Medical History: hypertension, other (Obesity hypoventilation syndrome) Medications and Allergies Allergies Allergy/AdvReac Type Severity Reaction Status Date / Time No Known Allergies Allergy Unverified 03/01/21 07:42 Home Medications Medication Instructions Recorded Confirmed Last Taken Type Amoxicillin/Potassium Clav 1 each PO Q12H #32 tablet 03/06/21 Unknown Rx [Augmentin 875-125 Tablet] levoFLOXacin [Levaquin] 750 mg PO QDAY #16 tablet 03/06/21 Unknown Rx oxyCODONE /ACETAMINOPHEN [Percocet 1 tab PO Q12H PRN #20 tablet 03/06/21 Unknown Rx 5/325 mg] Active Meds: Active Medications Acetaminophen (Acetaminophen 325 Mg Tab) 650 mg PO Q4H PRN PRN Reason: Pain MILD(1-3)/Fever >100.5/ARREDONDO Famotidine (Famotidine 20 Mg/2 Ml Inj) 20 mg IV BID MICKIE Heparin Sodium (Porcine) (Heparin 5,000 Unit/1 Ml Vial) 5,000 unit SUB-Q Q8HR MICKIE Hydromorphone HCl (Hydromorphone 1 Mg/1 Ml Inj) 0.5 mg IV Q3H PRN PRN Reason: Pain , Severe (7-10) Levofloxacin/Dextrose (Levaquin 750mg/150ml) 750 mg in 150 mls @ 100 mls/hr IV ONCE ONE; Protocol Stop: 03/08/21 22:59 Last Admin: 03/08/21 21:23 Dose: 100 mls/hr Documented by: Piperacillin Sod/Tazobactam Sod (Zosyn/Ns 4.5gm/100ml) 4.5 gm in 100 mls @ 200 mls/hr IV ONCE ONE; Protocol Stop: 03/08/21 21:59 Last Admin: 03/08/21 21:23 Dose: 200 mls/hr Documented by: Sodium Chloride (Nacl 0.9% 1000 Ml) 1,000 mls @ 150 mls/hr IV DIRECT MICKIE Dextrose/Sodium Chloride (D5/0.45ns) 1,000 mls @ 100 mls/hr IV DIRECT MICKIE Piperacillin Sod/Tazobactam Sod (Zosyn/Ns 4.5gm/100ml) 4.5 gm in 100 mls @ 200 mls/hr IV Q8H MICKIE; Protocol Levofloxacin/Dextrose (Levaquin 750mg/150ml) 750 mg in 150 mls @ 100 mls/hr IV Q24H MICKIE; Protocol Ondansetron HCl (Ondansetron 4 Mg/2 Ml Inj) 4 mg IV Q8H PRN PRN Reason: Nausea And Vomiting Oxycodone/Acetaminophen (Oxycodone /Acetaminophen 5-325mg Tab) 1 tab PO Q6H PRN PRN Reason: Pain, Moderate (4-6) Sodium Chloride (Sodium Chloride 0.9% 10 Ml Flush Syringe) 10 ml IV BID MICKIE Sodium Chloride (Sodium Chloride 0.9% 10 Ml Flush Syringe) 10 ml IV PRN PRN PRN Reason: LINE FLUSH Review of Systems All systems: negative Constitutional: fever Rectal: other (Perirectal abscess) Exam - Constitutional Vitals: Temp Pulse Resp BP Pulse Ox 97.2 F L 91 H 16 147/84 97 03/08/21 16:04 03/08/21 20:35 03/08/21 20:35 03/08/21 20:35 03/08/21 21:34 General appearance: Present: no acute distress, well-nourished - EENT Eyes: Present: PERRL ENT: hearing intact, clear oral mucosa - Neck Neck: Present: supple, normal ROM - Respiratory Respiratory effort: normal Respiratory: bilateral: CTA - Cardiovascular Heart Sounds: Present: S1 & S2. Absent: rub, click - Extremities Extremities: pulses symmetrical, No edema Peripheral Pulses: within normal limits - Abdominal General gastrointestinal: Present: soft, non-tender, non-distended, normal bowel sounds Male genitourinary: Present: normal - Rectal Rectal Exam: other (Patient has some swelling to the left buttock inferiorly which is indurated and firm with warmth. No fluctuance in this region. No significant pain at the perineum)) - Integumentary Integumentary: Present: clear, warm, dry - Musculoskeletal Musculoskeletal: gait normal, strength equal bilaterally - Psychiatric Psychiatric: appropriate mood/affect, intact judgment & insight - Neurologic Neurologic: CNII-XII intact, moves all extremities Results - Labs CBC & Chem 7: 03/08/21 17:32 03/08/21 17:32 Labs: Laboratory Last Values WBC 14.9 K/mm3 (4.5-11.0) H 03/08/21 17:32 RBC 4.28 M/mm3 (3.65-5.03) 03/08/21 17:32 Hgb 12.7 gm/dl (11.8-15.2) 03/08/21 17:32 Hct 38.5 % (35.5-45.6) 03/08/21 17:32 MCV 90 fl (84-94) 03/08/21 17:32 MCH 30 pg (28-32) 03/08/21 17:32 MCHC 33 % (32-34) 03/08/21 17:32 RDW 13.0 % (13.2-15.2) L 03/08/21 17:32 Plt Count 450 K/mm3 (140-440) H 03/08/21 17:32 Lymph % (Auto) 18.6 % (13.4-35.0) 03/08/21 17:32 [place] % (Auto) 10.5 % (0.0-7.3) H 03/08/21 17:32 Eos % (Auto) 2.5 % (0.0-4.3) 03/08/21 17:32 Baso % (Auto) 0.7 % (0.0-1.8) 03/08/21 17:32 Lymph # (Auto) 2.8 K/mm3 (1.2-5.4) 03/08/21 17:32 [place] # (Auto) 1.6 K/mm3 (0.0-0.8) H 03/08/21 17:32 Eos # (Auto) 0.4 K/mm3 (0.0-0.4) 03/08/21 17:32 Baso # (Auto) 0.1 K/mm3 (0.0-0.1) 03/08/21 17:32 Seg Neutrophils % 67.7 % (40.0-70.0) 03/08/21 17:32 Seg Neutrophils # 10.1 K/mm3 (1.8-7.7) H 03/08/21 17:32 Sodium 135 mmol/L (137-145) L 03/08/21 17:32 Potassium 3.9 mmol/L (3.6-5.0) 03/08/21 17:32 Chloride 97.3 mmol/L (98-107) L 03/08/21 17:32 Carbon Dioxide 24 mmol/L (22-30) 03/08/21 17:32 Anion Gap 18 mmol/L 03/08/21 17:32 BUN 13 mg/dL (9-20) 03/08/21 17:32 Creatinine 1.2 mg/dL (0.8-1.3) 03/08/21 17:32 Estimated GFR > 60 ml/min 03/08/21 17:32 BUN/Creatinine Ratio 11 % 03/08/21 17:32 Glucose 96 mg/dL (75-100) 03/08/21 17:32 Calcium 9.2 mg/dL (8.4-10.2) 03/08/21 17:32 Urine Color Yellow (Yellow) 03/08/21 Unknown Urine Turbidity Clear (Clear) 03/08/21 Unknown Urine pH 6.0 (5.0-7.0) 03/08/21 Unknown Ur Specific [place] 1.017 (1.003-1.030) 03/08/21 Unknown Urine Protein 30 mg/dl mg/dL (Negative) 03/08/21 Unknown Urine Glucose (UA) Neg mg/dL (Negative) 03/08/21 Unknown Urine Ketones Neg mg/dL (Negative) 03/08/21 Unknown Urine Blood Sm (Negative) 03/08/21 Unknown Urine Nitrite Neg (Negative) 03/08/21 Unknown Urine Bilirubin Neg (Negative) 03/08/21 Unknown Urine Urobilinogen < 2.0 mg/dL (<2.0) 03/08/21 Unknown Ur Leukocyte Esterase Neg (Negative) 03/08/21 Unknown Urine WBC (Auto) 3.0 /HPF (0.0-6.0) 03/08/21 Unknown Urine RBC (Auto) 2.0 /HPF (0.0-6.0) 03/08/21 Unknown U Epithel Cells (Auto) 2.0 /HPF (0-13.0) 03/08/21 Unknown - Imaging and Cardiology CT scan - abdomen: report reviewed Assessment and Plan VTE prophylaxis?: Chemical Plan of care discussed with patient/family: Yes - Patient Problems (1) Parvin-rectal abscess Current Visit: Yes Status: Acute Plan to address problem: Admit the patient to the medical floor. N.p.o. D5 half-normal saline at the rate of 100 cc/h. Zosyn 4.5 g IV every 8 hours. Levaquin 750 mg IV daily. We do the blood culture wound culture. Will consult To go to see the patient for possible I&D. We also consult infectious disease and wound care (2) Obesity Current Visit: Yes Status: Acute Plan to address problem: Patient counseled regarding weight reduction. Outpatient follow-up bariatric surgery (3) Obesity hypoventilation syndrome Current Visit: No Status: Acute Plan to address problem: Oxygen via nasal cannula 3 L/min. DuoNeb by nebulizer every 4 hours. (4) DVT prophylaxis Current Visit: No Status: Acute Plan to address problem: Heparin 5000 units subcu every 8 hours for DVT prophylaxis. Pepcid 20 mg p.o. twice daily for GI prophylaxis. Patient is a full code
[2021-03-09] MEDS: HYDROmorphone 1 MG/1 ML INJ IV PRN (05:20)
[2021-03-09] MEDS: PIPERACIL/TAZOBACTA 4.5/NS 100 4.5 GM/100 ML VIAL IV SCH ×2 (06:00→15:25)
[2021-03-09] MEDS: HEPARIN 5,000 UNIT/1 ML VIAL SUB-Q SCH ×4 (06:15→21:43)
--- NOTE | 2021-03-09 10:41 | Consultation ---
History of Present Illness Consult date: 03/09/21 Chief complaint: Perirectal abscess - History of present illness History of present illness: 30-year-old male presents the emergency room yesterday with a 2-week history of progressively worsening pelvic pain. He was seen in the emergency room 3 to 4 days ago that showed a 4 cm perirectal abscess collection. He was sent home to take antibiotics however he never started them. He returned with worsening pain that he says is mostly in the center of his pelvis but radiates to the left side. A repeat CT scan showed that the abscess collections had increased in size with one measuring 7 cm in greatest dimension the other multiloculated up to 5 cm. Patient says he has never had these symptoms before. He denies any nausea vomiting. Past History Past Medical History: hypertension, other (Obesity hypoventilation syndrome) Past Surgical History: No surgical history Social history: smoking Medications and Allergies Allergies Allergy/AdvReac Type Severity Reaction Status Date / Time No Known Allergies Allergy Unverified 03/01/21 07:42 Home Medications Medication Instructions Recorded Confirmed Last Taken Type Amoxicillin/Potassium Clav 1 each PO Q12H #32 tablet 03/06/21 Unknown Rx [Augmentin 875-125 Tablet] levoFLOXacin [Levaquin] 750 mg PO QDAY #16 tablet 03/06/21 Unknown Rx oxyCODONE /ACETAMINOPHEN [Percocet 1 tab PO Q12H PRN #20 tablet 03/06/21 Unknown Rx 5/325 mg] Active Meds: Active Medications Acetaminophen (Acetaminophen 325 Mg Tab) 650 mg PO Q4H PRN PRN Reason: Pain MILD(1-3)/Fever >100.5/ARREDONDO Famotidine (Famotidine 20 Mg/2 Ml Inj) 20 mg IV BID [facility] Last Admin: 03/09/21 00:00 Dose: 20 mg Documented by: Heparin Sodium (Porcine) (Heparin 5,000 Unit/1 Ml Vial) 5,000 unit SUB-Q Q8HR [facility] Last Admin: 03/09/21 06:15 Dose: 5,000 unit Documented by: Hydromorphone HCl (Hydromorphone 1 Mg/1 Ml Inj) 0.5 mg IV Q3H PRN PRN Reason: Pain , Severe (7-10) Last Admin: 03/09/21 05:20 Dose: 0.5 mg Documented by: Sodium Chloride (Nacl 0.9% 1000 Ml) 1,000 mls @ 150 mls/hr IV DIRECT MICKIE Dextrose/Sodium Chloride (D5/0.45ns) 1,000 mls @ 100 mls/hr IV DIRECT MICKIE Piperacillin Sod/Tazobactam Sod (Zosyn/Ns 4.5gm/100ml) 4.5 gm in 100 mls @ 200 mls/hr IV Q8H [facility]; Protocol Last Admin: 03/09/21 06:00 Dose: 200 mls/hr Documented by: Ondansetron HCl (Ondansetron 4 Mg/2 Ml Inj) 4 mg IV Q8H PRN PRN Reason: Nausea And Vomiting Oxycodone/Acetaminophen (Oxycodone /Acetaminophen 5-325mg Tab) 1 tab PO Q6H PRN PRN Reason: Pain, Moderate (4-6) Sodium Chloride (Sodium Chloride 0.9% 10 Ml Flush Syringe) 10 ml IV BID [facility] Last Admin: 03/09/21 00:00 Dose: 10 ml Documented by: Sodium Chloride (Sodium Chloride 0.9% 10 Ml Flush Syringe) 10 ml IV PRN PRN PRN Reason: LINE FLUSH Review of Systems All systems: negative - Cardiovascular no chest pain - Gastrointestinal abdominal pain, no BRBPR, no melena - Genitourinary no dysuria Exam Vital Signs Temp Pulse Resp BP Pulse Ox 97.2 F L 82 16 138/72 98 03/08/21 16:04 03/08/21 16:04 03/08/21 16:04 03/08/21 16:04 03/08/21 16:04 - General physical appearance Positive: well developed, no distress, moderate pain - ENT Positive: no hearing loss - Respiratory Positive: normal expansion, normal respiratory effort - Cardiovascular Heart Sounds: Present: S1 & S2 - Extremities Extremities: no ischemia - Abdomen Abdomen: Present: soft. Absent: tender, distended - Rectum Rectum: normal spincter tone, other (Light brown stool in rectal vault. Tender to digital exam with no palpable fluctuance appreciated in all 4 quadrants. Induration at the inferior aspect of the left buttock. No open skin drainage or appreciable erythema.) - Neurologic Neurologic: alert and oriented to time, place and person, motor strength and sensation are grossly intact, CN II-XII intact Results - Labs 03/08/21 17:32 03/08/21 17:32 Abnormal lab results 03/08/21 03/08/21 Range/Units 17:32 17:32 WBC 14.9 H (4.5-11.0) K/mm3 RDW 13.0 L (13.2-15.2) % Plt Count 450 H (140-440) K/mm3 [place] % (Auto) 10.5 H (0.0-7.3) % [place] # (Auto) 1.6 H (0.0-0.8) K/mm3 Seg Neutrophils # 10.1 H (1.8-7.7) K/mm3 Sodium 135 L (137-145) mmol/L Chloride 97.3 L (98-107) mmol/L Diabetes panel 03/08/21 Range/Units 17:32 Sodium 135 L (137-145) mmol/L Potassium 3.9 (3.6-5.0) mmol/L Chloride 97.3 L (98-107) mmol/L Carbon Dioxide 24 (22-30) mmol/L BUN 13 (9-20) mg/dL Creatinine 1.2 (0.8-1.3) mg/dL Glucose 96 (75-100) mg/dL Calcium 9.2 (8.4-10.2) mg/dL Calcium panel 03/08/21 Range/Units 17:32 Calcium 9.2 (8.4-10.2) mg/dL Pituitary panel 03/08/21 Range/Units 17:32 Sodium 135 L (137-145) mmol/L Potassium 3.9 (3.6-5.0) mmol/L Chloride 97.3 L (98-107) mmol/L Carbon Dioxide 24 (22-30) mmol/L BUN 13 (9-20) mg/dL Creatinine 1.2 (0.8-1.3) mg/dL Glucose 96 (75-100) mg/dL Calcium 9.2 (8.4-10.2) mg/dL Adrenal panel 03/08/21 Range/Units 17:32 Sodium 135 L (137-145) mmol/L Potassium 3.9 (3.6-5.0) mmol/L Chloride 97.3 L (98-107) mmol/L Carbon Dioxide 24 (22-30) mmol/L BUN 13 (9-20) mg/dL Creatinine 1.2 (0.8-1.3) mg/dL Glucose 96 (75-100) mg/dL Calcium 9.2 (8.4-10.2) mg/dL - Imaging CT scan - pelvis: report reviewed, image reviewed Assessment and Plan 30-year-old male with perirectal abscess. Afebrile and stable. Since unable to feel manually on exam emergency room concerned that abscess may be higher up. Reached out to interventional radiology to see if he is amenable to CT-guided drainage of abscess. If unable to will take the patient to OR for examination under anesthesia and possible incision and drainage. 1. Continue antibiotics 2. Continue n.p.o. and IV hydration
--- NOTE | 2021-03-09 13:14 | Anesthesia Consultation ---
Anesthesia Consult and Med Hx - Airway Anesthetic Teeth Evaluation: Poor, Chipped (front teeth) ROM Head & Neck: Adequate Mental/Hyoid Distance: Adequate Mallampati Class: Class III Intubation Access Assessment: Possibly Difficult - Pulmonary Exam CTA: Yes - Cardiac Exam Cardiac Exam: RRR - Pre-Operative Health Status ASA Pre-Surgery Classification: ASA3 Proposed Anesthetic Plan: General - Pulmonary Hx Smoking: Yes (2 packs per week (2-3 per day) + vaping occasionally) Hx Asthma: No SOB: No Hx Sleep Apnea: Yes (No CPAP) - Cardiovascular System Hx Hypertension: No Hx Heart Attack/AMI: No - Central Nervous System Hx Neuromuscular Disorder: No - Gastrointestinal Hx Gastroesophageal Reflux Disease: Yes (Occasional ) - Endocrine Hx Renal Disease: No Hx Insulin Dependent Diabetes: No Hx Thyroid Disease: No - Other Systems Hx Alcohol Use: Yes (occasional) Hx Substance Use: No Hx Cancer: No Hx Obesity: Yes - Additional Comments Anesthesia Medical History Comments: No history of anesthetic complications
--- NOTE | 2021-03-09 13:14 | Anesthesia Day of Surgery ---
Anesthesia Day of Surgery - Day of Surgery Patient Examined: Yes Patient H&P Reviewed: Yes Patient is NPO: Yes
--- NOTE | 2021-03-09 14:54 | Consultation ---
History of Present Illness - Reason for Consult Consult date: 03/09/21 - History of Present Illness 30-year-old male past medical history morbid obesity, hypertension presented to hospital due to groin pain. He was recently admitted here and seen by us 2 days prior to admission due to a perirectal and periprostatic abscess. That time he was recommended for medical therapy, and we recommended he be discharged on Augmentin and Levaquin. He had been feeling better in the hospital, however regressed as an outpatient as he could not afford antibiotics. He began having fevers and fatigue again, as such he presented back to the hospital. Afebrile since admission with a white count of 14.9. Urine cultures no growth so far. Imaging personally reviewed: Pelvis CT: Interval enlargement of multiloculated left peritoneal abscess Review of Systems: Bold if positive, otherwise negative General: fevers, chills, rigors HEENT: visual disturbance, diplopia, eye pain Respiratory: cough, sputum, hemoptysis, shortness of breath Cardiovascular: chest pain, syncope Gastrointestinal: nausea, vomiting, diarrhea, abdominal pain Genitourinary: dysuria, hematuria, flank pain Musculoskeletal: neck pain, back pain, joint pain, edema Neurologic: headaches, seizures Hematologic: easy bruising or bleeding Endocrine: night sweats, acute weight loss Skin: rash, jaundice, redness Psychiatric: suicidal, homicidal ideation Past History Past Medical History: hypertension, other (Obesity hypoventilation syndrome) Past Surgical History: No surgical history Social history: smoking Medications and Allergies Allergies Allergy/AdvReac Type Severity Reaction Status Date / Time No Known Allergies Allergy Unverified 03/01/21 07:42 Home Medications Medication Instructions Recorded Confirmed Last Taken Type Amoxicillin/Potassium Clav 1 each PO Q12H #32 tablet 03/06/21 03/09/21 Unknown Rx [Augmentin 875-125 Tablet] levoFLOXacin [Levaquin] 750 mg PO QDAY #16 tablet 03/06/21 03/09/21 Unknown Rx oxyCODONE /ACETAMINOPHEN [Percocet 1 tab PO Q12H PRN #20 tablet 03/06/21 03/09/21 Unknown Rx 5/325 mg] Active Meds: Active Medications Acetaminophen (Acetaminophen 325 Mg Tab) 650 mg PO Q4H PRN PRN Reason: Pain MILD(1-3)/Fever >100.5/ARREDONDO Famotidine (Famotidine 20 Mg/2 Ml Inj) 20 mg IV BID [facility] Last Admin: 03/09/21 00:00 Dose: 20 mg Documented by: Heparin Sodium (Porcine) (Heparin 5,000 Unit/1 Ml Vial) 5,000 unit SUB-Q Q8HR [facility] Last Admin: 03/09/21 06:15 Dose: 5,000 unit Documented by: Hydromorphone HCl (Hydromorphone 1 Mg/1 Ml Inj) 0.5 mg IV Q3H PRN PRN Reason: Pain , Severe (7-10) Last Admin: 03/09/21 05:20 Dose: 0.5 mg Documented by: Sodium Chloride (Nacl 0.9% 1000 Ml) 1,000 mls @ 150 mls/hr IV DIRECT [facility]ICKIE Dextrose/Sodium Chloride (D5/0.45ns) 1,000 mls @ 100 mls/hr IV DIRECT MICKIE Piperacillin Sod/Tazobactam Sod (Zosyn/Ns 4.5gm/100ml) 4.5 gm in 100 mls @ 200 mls/hr IV Q8H [facility]; Protocol Last Admin: 03/09/21 06:00 Dose: 200 mls/hr Documented by: Morphine Sulfate (Morphine 2 Mg/1 Ml Inj) 2 mg IV Q4H PRN PRN Reason: Pain , Severe (7-10) Ondansetron HCl (Ondansetron 4 Mg/2 Ml Inj) 4 mg IV Q8H PRN PRN Reason: Nausea And Vomiting Oxycodone/Acetaminophen (Oxycodone /Acetaminophen 5-325mg Tab) 1 tab PO Q6H PRN PRN Reason: Pain, Moderate (4-6) Sodium Chloride (Sodium Chloride 0.9% 10 Ml Flush Syringe) 10 ml IV BID [facility] Last Admin: 03/09/21 00:00 Dose: 10 ml Documented by: Sodium Chloride (Sodium Chloride 0.9% 10 Ml Flush Syringe) 10 ml IV PRN PRN PRN Reason: LINE FLUSH Physical Examination - Physical Exam Narrative exam: Physical Exam: Constitutional: Alert, cooperative. No acute distress Head, Ears, Nose: Normocephalic, atraumatic. External ears, nose normal Eyes: Conjunctivae/corneas clear. No icterus. No ptosis. Neck: Supple, no meningeal signs Oral: dentition fair, no thrush Cardiovascular: S1, S2 normal. Respiratory: Good air entry, clear to auscultation bilaterally GI: Soft, non-tender; bowel sounds normal. No peritoneal signs. Musculoskeletal: Perirectal exam deferred Skin: No rash or abscess Hem/Lymphatic: No palpable cervical or supraclavicular nodes. No lymphangitis Psych: Mood ok. Affect normal Neurological: Awake, alert, oriented. No gross abnormality - Constitutional Vitals: Vital Signs Temp Pulse Resp BP Pulse Ox 99.0 F 77 20 122/89 98 03/08/21 20:27 03/09/21 09:31 03/09/21 10:00 03/09/21 09:31 03/09/21 10:00 Temperature -Last 24 Hours Temperature 99.0 F Temperature 97.2 F Results - Labs CBC & Chem 7: 03/08/21 17:32 03/08/21 17:32 Labs: Abnormal lab results 03/08/21 03/08/21 Range/Units 17:32 17:32 WBC 14.9 H (4.5-11.0) K/mm3 RDW 13.0 L (13.2-15.2) % Plt Count 450 H (140-440) K/mm3 [place] % (Auto) 10.5 H (0.0-7.3) % [place] # (Auto) 1.6 H (0.0-0.8) K/mm3 Seg Neutrophils # 10.1 H (1.8-7.7) K/mm3 Sodium 135 L (137-145) mmol/L Chloride 97.3 L (98-107) mmol/L Assessment and Plan Cultures: Urine culture no growth so far A/P: 30-year-old man past medical history morbid obesity, hypertension admitted with worsening perirectal abscess #Perirectal abscess: Pending IR drain versus surgical I&D. Recommend culture to be obtained for culture directed therapy. #Leukocytosis: Secondary to sepsis. #Morbid obesity Recs: -Adjusted antibiotics to vancomycin, cefepime, Flagyl. -Please obtain cultures from abscess -We will plan on culture to therapy for discharge. Thank you for the consult, we will continue to follow. Daniela Richard MD [facility] ([facility] O: [phone] F: [phone]
[2021-03-09] MEDS ORDERED: VANCOMYCIN PHARMACY TO DOSE IV SCH (15:00)
[2021-03-09] MEDS: CEFEPIME/NS 2 GM/100 ML 2 GM/100 ML BAG IV SCH (15:25)
[2021-03-09] MEDS: FAMOTIDINE 20 MG/2 ML INJ IV SCH ×3 (15:25→21:42)
[2021-03-09] MEDS: metroNIDAZOLE/NS 500 MG/100 ML 500 MG/100 ML BAG IV SCH (15:25)
[2021-03-09] MEDS ORDERED: LIDOCAINE (1%) 10 MG/1 ML VIAL 20 ML MDV ONE (15:54)
[2021-03-09] MEDS: MORPHINE 2 MG/1 ML INJ IV PRN ×2 (15:55→21:43)
[2021-03-09] MEDS ORDERED: BUPIVACAINE/PF (0.5%) 5 MG/1 ML 30 ML VIAL INFILTRATI ONE (15:55)
[2021-03-09] MEDS ORDERED: ROCURONIUM 50 MG/5 ML INJ IV ONE (15:56)
[2021-03-09] MEDS ORDERED: MIDAZOLAM 2 MG/2 ML INJ ONE (15:56)
--- NOTE | 2021-03-09 15:56 | Progress Note ---
Assessment and Plan 30-year-old male presents the emergency room with a 2-week history of progressively worsening pelvic pain. He was seen in the emergency room 3 to 4 days ago that showed a 4 cm perirectal abscess collection, He was sent home to take antibiotics however he never started them as he could not afford. He returned to hospital with worsening pain, A repeat CT scan showed that the abscess collections had increased in size with one measuring 7 cm in greatest dimension the other multiloculated up to 5 cm. Patient being admitted for further evaluation and management Assessment and plan: -- Parvin-rectal abscess Continue n.p.o. for I&D, general surgery consulted D5 half-normal saline at the rate of 100 cc/h. Adjusted antibiotics to vancomycin, cefepime, Flagyl per ID Follow-up blood culture wound culture. Follow infectious disease recommendation Ordered wound care --Morbid obesity Patient counseled regarding weight reduction. Outpatient follow-up bariatric surgery -- DVT prophylaxis Heparin 5000 units subcu every 8 hours for DVT prophylaxis. Pepcid 20 mg p.o. twice daily for GI prophylaxis. Patient is a full code Daily clinical course: 03/09/21: Continue empiric antibiotics, pain medications as needed plan for I&D, following wound culture result and blood culture result Subjective Date of service: 03/09/21 Interval history: Patient seen and examined. Medical records and medication list reviewed. No acute event overnight noted by the RN. Patient denies any chest pain or difficulty breathing. Complains of pain in the buttocks Discussed plan of care at bedside with patient. Objective - Exam Narrative Exam: GENERAL: well-developed morbidly obese male lying on bed appeared to be in no discomfort. HEENT: Normocephalic. Atraumatic. No conjunctival congestion or icterus. Patient has moist mucous membranes. NECK: Supple. Trachea midline. CHEST/LUNGS: Clear to auscultated bilaterally, breathing nonlabored. No wheezes crackles or rhonchi. HEART/CARDIOVASCULAR: Regular in rate and rhythm. S1 and S2 positive. ABDOMEN: Abdomen is soft, nontender. Patient has normal bowel sounds. Induration at the inferior aspect of the left buttock. No open skin drainage or appreciable erythema SKIN: There is no rash. Warm and dry. NEURO: No focal motor deficit. Follows command. MUSCULOSKELETAL: No joint effusion or tenderness. EXTRIMITY: No edema, no cyanosis or clubbing. PSYCH: Cooperative. - Constitutional Vitals: Vital Signs - 12hr 03/09/21 03/09/21 03/09/21 05:38 08:01 08:15 Pulse Rate 79 78 78 Respiratory 15 17 18 Rate Blood Pressure 128/81 128/81 Blood Pressure 159/77 [Left] O2 Sat by Pulse 100 98 97 Oximetry 03/09/21 03/09/21 03/09/21 08:31 08:45 09:01 Pulse Rate 67 70 57 L Respiratory 18 16 21 Rate Blood Pressure 128/81 128/81 122/89 Blood Pressure [Left] O2 Sat by Pulse 95 97 89 Oximetry 03/09/21 03/09/21 03/09/21 09:15 09:31 10:00 Pulse Rate 51 L 77 Respiratory 28 H 17 20 Rate Blood Pressure 122/89 122/89 Blood Pressure [Left] O2 Sat by Pulse 83 L 98 98 Oximetry - Labs CBC & Chem 7: 03/08/21 17:32 03/08/21 17:32 Labs: Abnormal lab results 03/08/21 03/08/21 Range/Units 17:32 17:32 WBC 14.9 H (4.5-11.0) K/mm3 RDW 13.0 L (13.2-15.2) % Plt Count 450 H (140-440) K/mm3 [place] % (Auto) 10.5 H (0.0-7.3) % [place] # (Auto) 1.6 H (0.0-0.8) K/mm3 Seg Neutrophils # 10.1 H (1.8-7.7) K/mm3 Sodium 135 L (137-145) mmol/L Chloride 97.3 L (98-107) mmol/L
[2021-03-09] MEDS ORDERED: propofoL 200 MG/20 ML VIAL IV ONE (15:57)
[2021-03-09] MEDS ORDERED: fentaNYL 100 MCG/2 ML INJ ONE (15:57)
[2021-03-09] MEDS ORDERED: LACTATED RINGERS 1,000 ML ONE ×2 (16:16→17:24)
[2021-03-09] MEDS ORDERED: HYDROmorphone 1 MG/1 ML INJ IV PRN (16:49)
[2021-03-09] MEDS ORDERED: ONDANSETRON 4 MG/2 ML INJ IV PRN (16:49)
[2021-03-09] MEDS ORDERED: SODIUM CHLORIDE 0.9% IRR 1,500 ML BOTTLE IR ONE (16:52)
[2021-03-09] MEDS ORDERED: SUGAMMADEX SODIUM 200 MG/2 ML VIAL IV ONE (17:10)
[2021-03-09] MEDS ORDERED: ONDANSETRON 4 MG/2 ML INJ ONE (17:24)
[2021-03-09] MEDS ORDERED: LIDOCAINE MPF (2%) 20 MG/1 ML VIAL 5 ML ONE (17:24)
--- NOTE | 2021-03-09 17:31 | Operative Report ---
Operative Report Operative Report: Date: March 09, 2021 Surgeon: Janiya Land MD [employer] surgeon: Christie Kulkarni DO Anesthesia:GETA Preop diagnosis: Perirectal abscess Postop diagnosis: Same as preop Procedure performed:1. Examination under anesthesia, 2. Incision of left buttock with wound exploration and wound culture Indication: Patient a 30-year-old male who presents to the emergency room with a 2-week history of progressively increasing pelvic pain that was progressing to the left side. Patient was in the emergency room 3 to 4 days ago which showed a CAT scan with a 4 cm fluid collection in the perirectal area. He was discharged and sent home to take antibiotics of which she did not take. He returned last night with an increase in the abscess or fluid collection size seen on CAT scan measuring up to 7 cm. An additional abscess 5 cm. Patient had a digital rectal exam in the emergency room there was noted to be induration of the left buttock however there was no discrete fluctuance upon rectal exam. It was decided to take the patient to the OR for examination under anesthesia to see if the abscess could be drained. Patient signed informed consent. Details of procedure. Patient brought OR suite laid in supine position. Bilateral lower extremity SCDs were placed. General anesthesia was induced via successful and tracheal tube intubation. Patient was carefully rolled into the prone position with all pressure points padded. Again on rectal exam there was no area of fluctuance appreciated. The left indurated gluteal area was then explored initially with an 18-gauge spinal needle with no expression of fluctuance. At this time decided to incise at the most prominent area. An 11 blade scalpel was used to make a 2 cm incision which was then probed with a Bianca clamp. As well as digital dissection. There was noted to be no reflux of purulent material no odor. A wound culture was taken of this area and sent to pathology. At this time it was decided to pack the wound with iodoform dressing and covered with fluff and ABD pad. A consult will be placed for interventional radiology to see if they can evaluate him for possible CT-guided drainage as the abscess collection seen on CAT scan appears to be higher or not a discrete fluid pocket that needs to be drained via IR guidance. Complication: None immediate EBL: Less than 10 mL Specimen: Wound cultures
[2021-03-09] MEDS ORDERED: PHENYLEPHRINE/NS 1,000 MCG/10 ML SYRINGE (OR USE) IV ONE (17:43)
--- NOTE | 2021-03-09 18:05 | Post Anesthesia Evaluation ---
- Post Anesthesia Evaluation Patient Participated: Yes Airway Patent: Yes Stable Respiratory Function: Yes Nausea/Vomiting: No Temp > 96.8F: Yes Pain Manageable: Yes Adequeate Hydration: Yes Anesthesia Complications: No
[2021-03-09] MEDS: VANCOMYCIN 2,000 MG in SODIUM CHLORIDE 0.9% 500 ML 500 ML IV SCH (18:38)
[2021-03-10] MEDS: metroNIDAZOLE/NS 500 MG/100 ML 500 MG/100 ML BAG IV SCH ×3 (00:55→16:38)
[2021-03-10] MEDS: CEFEPIME/NS 2 GM/100 ML 2 GM/100 ML BAG IV SCH ×4 (03:00→23:21)
[2021-03-10] MEDS: VANCOMYCIN 2,000 MG in SODIUM CHLORIDE 0.9% 500 ML 500 ML IV SCH ×2 (05:19→17:00)
[2021-03-10] MEDS: HEPARIN 5,000 UNIT/1 ML VIAL SUB-Q SCH ×3 (05:19→22:01)
[2021-03-10] MEDS: oxyCODONE /ACETAMINOPHEN 5-325MG TAB PO PRN (06:08)
[2021-03-10 10:04] LABS: BUN/Creatinine Ratio 11; Blood Urea Nitrogen 11 mg/dL (9-20); Calcium 8.5 mg/dL (8.4-10.2); Hemolysis Index 462
--- NOTE | 2021-03-10 10:14 | Progress Note ---
Assessment and Plan - Patient Problems (1) Parvin-rectal abscess Current Visit: Yes Status: Acute Plan to address problem: General surgery team consulted. Patient status post attempted I&D as per surgical team. Interventional radiology team consulted. (2) Obesity hypoventilation syndrome Current Visit: No Status: Acute Plan to address problem: Balanced diet, increase physical activity at discharge, outpatient pulmonary follow-up for sleep study, outpatient bariatric surgery follow-up. (3) DVT prophylaxis Current Visit: No Status: Acute Plan to address problem: SCD to bilateral lower extremities while in bed, patient is ambulatory History Interval history: 30 YO Male with Perirectal Abscess, SMO status post attempted surgical I&D of perirectal abscess. Patient abscess location makes it not amenable for surgical drainage. Interventional radiology consult placed. Patient resting comfortably. Patient denies pain. No reported nursing events. Patient denies fever,, rectal discharge. Hospitalist Physical - Constitutional Vitals: Temp Pulse Resp BP Pulse Ox 99.2 F 94 H 17 140/77 95 03/10/21 04:07 03/10/21 04:07 03/10/21 07:08 03/10/21 04:07 03/10/21 04:07 General appearance: Present: no acute distress, well-nourished, obese - EENT Eyes: Present: PERRL ENT: hearing intact - Neck Neck: Present: supple - Respiratory Respiratory: bilateral: CTA - Cardiovascular Rhythm: regular - Extremities Extremities: no ischemia Peripheral Pulses: within normal limits - Abdominal General gastrointestinal: soft, non-tender, non-distended - Integumentary Integumentary: Present: clear, dry - Psychiatric Psychiatric: appropriate mood/affect, cooperative - Neurologic Neurologic: CNII-XII intact Results - Labs CBC & Chem 7: 03/08/21 17:32 03/10/21 09:30 Labs: Laboratory Last Values WBC 14.9 K/mm3 (4.5-11.0) H 03/08/21 17:32 RBC 4.28 M/mm3 (3.65-5.03) 03/08/21 17:32 Hgb 12.7 gm/dl (11.8-15.2) 03/08/21 17:32 Hct 38.5 % (35.5-45.6) 03/08/21 17:32 MCV 90 fl (84-94) 03/08/21 17:32 MCH 30 pg (28-32) 03/08/21 17:32 MCHC 33 % (32-34) 03/08/21 17:32 RDW 13.0 % (13.2-15.2) L 03/08/21 17:32 Plt Count 450 K/mm3 (140-440) H 03/08/21 17:32 Lymph % (Auto) 18.6 % (13.4-35.0) 03/08/21 17:32 [place] % (Auto) 10.5 % (0.0-7.3) H 03/08/21 17:32 Eos % (Auto) 2.5 % (0.0-4.3) 03/08/21 17:32 Baso % (Auto) 0.7 % (0.0-1.8) 03/08/21 17:32 Lymph # (Auto) 2.8 K/mm3 (1.2-5.4) 03/08/21 17:32 [place] # (Auto) 1.6 K/mm3 (0.0-0.8) H 03/08/21 17:32 Eos # (Auto) 0.4 K/mm3 (0.0-0.4) 03/08/21 17:32 Baso # (Auto) 0.1 K/mm3 (0.0-0.1) 03/08/21 17:32 Seg Neutrophils % 67.7 % (40.0-70.0) 03/08/21 17:32 Seg Neutrophils # 10.1 K/mm3 (1.8-7.7) H 03/08/21 17:32 Sodium 135 mmol/L (137-145) L 03/10/21 09:30 Potassium 3.9 mmol/L (3.6-5.0) 03/08/21 17:32 Chloride 100.5 mmol/L (98-107) 03/10/21 09:30 Carbon Dioxide 24 mmol/L (22-30) 03/10/21 09:30 Anion Gap 17 mmol/L 03/10/21 09:30 BUN 11 mg/dL (9-20) 03/10/21 09:30 Creatinine 1.0 mg/dL (0.8-1.3) 03/10/21 09:30 Estimated GFR > 60 ml/min 03/10/21 09:30 BUN/Creatinine Ratio 11 % 03/10/21 09:30 Glucose 136 mg/dL (75-100) H 03/10/21 09:30 Calcium 8.5 mg/dL (8.4-10.2) 03/10/21 09:30 Urine Color Yellow (Yellow) 03/08/21 Unknown Urine Turbidity Clear (Clear) 03/08/21 Unknown Urine pH 6.0 (5.0-7.0) 03/08/21 Unknown Ur Specific [place] 1.017 (1.003-1.030) 03/08/21 Unknown Urine Protein 30 mg/dl mg/dL (Negative) 03/08/21 Unknown Urine Glucose (UA) Neg mg/dL (Negative) 03/08/21 Unknown Urine Ketones Neg mg/dL (Negative) 03/08/21 Unknown Urine Blood Sm (Negative) 03/08/21 Unknown Urine Nitrite Neg (Negative) 03/08/21 Unknown Urine Bilirubin Neg (Negative) 03/08/21 Unknown Urine Urobilinogen < 2.0 mg/dL (<2.0) 03/08/21 Unknown Ur Leukocyte Esterase Neg (Negative) 03/08/21 Unknown Urine WBC (Auto) 3.0 /HPF (0.0-6.0) 03/08/21 Unknown Urine RBC (Auto) 2.0 /HPF (0.0-6.0) 03/08/21 Unknown U Epithel Cells (Auto) 2.0 /HPF (0-13.0) 03/08/21 Unknown Microbiology: Microbiology 03/08/21 19:30 Urine,Clean Catch Urine Culture - Preliminary NO GROWTH AFTER 24 HOURS [place]/IV: Voiding Method Urinal Active Medications - Current Medications Current Medications: Generic Name Dose Route Start Last Admin Trade Name Freq PRN Reason Stop Dose Admin Acetaminophen 650 mg 03/08/21 21:48 Acetaminophen 325 Mg Tab PO Q4H PRN Pain MILD(1-3)/Fever >100.5/ARREDONDO Famotidine 20 mg 03/08/21 22:00 03/09/21 21:42 Famotidine 20 Mg/2 Ml Inj IV 20 mg BID MICKIE Administration Heparin Sodium (Porcine) 5,000 unit 03/08/21 22:00 03/10/21 05:19 Heparin 5,000 Unit/1 Ml Vial SUB-Q 5,000 unit Q8HR MICKIE Administration Hydromorphone HCl 0.5 mg 03/08/21 21:48 03/09/21 05:20 Hydromorphone 1 Mg/1 Ml Inj IV 0.5 mg Q3H PRN Administration Pain , Severe (7-10) Sodium Chloride 1,000 mls @ 150 mls/hr 03/08/21 21:45 Nacl 0.9% 1000 Ml IV DIRECT MICKIE Dextrose/Sodium Chloride 1,000 mls @ 100 mls/hr 03/08/21 22:00 D5/0.45ns IV DIRECT MICKIE Cefepime HCl 2 gm in 100 mls @ 200 mls/hr 03/09/21 16:00 03/10/21 03:00 Cefepime/Ns 2 Gm/100 Ml IV 200 mls/hr Q8H MICKIE Administration Protocol Metronidazole 500 mg in 100 mls @ 100 mls/hr 03/09/21 16:00 03/10/21 00:55 Flagyl 500 Mg/100 Ml IV 100 mls/hr Q8H MICKIE Administration Protocol Vancomycin HCl 2,000 mg/ 540 mls @ 250 mls/hr 03/09/21 18:00 03/10/21 05:19 Sodium Chloride IV 250 mls/hr Q12H MICKIE Administration Ketorolac Tromethamine 30 mg 03/10/21 10:00 Ketorolac 30 Mg/1 Ml Inj IV 03/15/21 09:59 Q6H MICKIE Labetalol HCl 5 mg 03/09/21 17:50 Labetalol 20 Mg/4 Ml Inj IV Q10MIN PRN Hypertension Morphine Sulfate 2 mg 03/09/21 12:42 03/09/21 21:43 Morphine 2 Mg/1 Ml Inj IV 2 mg Q4H PRN Administration Pain , Severe (7-10) Ondansetron HCl 4 mg 03/08/21 21:48 Ondansetron 4 Mg/2 Ml Inj IV Q8H PRN Nausea And Vomiting Oxycodone/Acetaminophen 1 tab 03/08/21 21:48 03/10/21 06:08 Oxycodone /Acetaminophen 5-325mg Tab PO 1 tab Q6H PRN Administration Pain, Moderate (4-6) Sodium Chloride 10 ml 03/08/21 22:00 03/10/21 05:25 Sodium Chloride 0.9% 10 Ml Flush Syringe IV 10 ml BID MICKIE Administration Sodium Chloride 10 ml 03/08/21 21:48 Sodium Chloride 0.9% 10 Ml Flush Syringe IV PRN PRN LINE FLUSH
[2021-03-10] MEDS: KETOROLAC 30 MG/1 ML INJ IV SCH ×3 (10:46→21:59)
[2021-03-10] MEDS: FAMOTIDINE 20 MG/2 ML INJ IV SCH ×2 (10:46→22:00)
--- NOTE | 2021-03-10 12:30 | Event Note ---
Date: 03/10/21 30 year old male with pelvic fluid collection. Attempt by general surgery for I&D in OR was complicated by patient's body habitus (severe morbidly obesity) Can attempt IR drainage on friday if patient can tolerate prone positioning, but any drainage will be complicated by drain dislodgement over the next few days due to the extreme superficial location of the fluid collection and severe morbid obesity. The likelihood of any drain staying in place is very low. Another option can be to reattempt I&D in the OR with intraoperative ultrasound guidance/assistance with or without learning technologist. Will make patient NPO after MN for friday regardless. Will discuss with general surgery.
--- NOTE | 2021-03-10 14:00 | Progress Note ---
Assessment and Plan 30 yo M s/p 1. Examination under anesthesia, 2. Incision of left buttock with wound exploration and wound culture, POD 1 Plan: 1. Continue diet 2. strict glucose control 3. Start sitz baths TID and after every BM 4. IR recs noted - plan to attempt image guided drainage on Friday. Will D/W Dr. Mariee. 5. Iv abx 6. wound cultures pending Thank you, please call with questions Subjective Date of service: 03/10/21 Narrative: Pt seen and examined. No acute complaints. Pain is 4-5/10 and well controlled with medications. Afebrile. Objective Vital Signs - 12hr 03/10/21 03/10/21 03/10/21 04:07 06:08 07:08 Temperature 99.2 F Pulse Rate 94 H Respiratory 20 17 17 Rate Blood Pressure 140/77 O2 Sat by Pulse 95 Oximetry 03/10/21 03/10/21 10:00 11:41 Temperature 99.3 F Pulse Rate Respiratory 18 Rate Blood Pressure 138/78 O2 Sat by Pulse 97 Oximetry - General physical appearance Narrative Exam: Gen: AAOx3. NAD CV: s1, S2+ Resp: even and unlabored Gluteal; Left gluteal wound clean with induration of skin and subcutaneous t issue. One piece of iodoform packing removed from wound. Wound clean and dry without drainage or bleeding. Dry dressing applied. No obvious fluctuant areas palpable in area of concern on CT. - Labs 03/08/21 17:32 03/10/21 09:30 Diabetes panel 03/10/21 Range/Units 09:30 Sodium 135 L (137-145) mmol/L Potassium TNR Chloride 100.5 (98-107) mmol/L Carbon Dioxide 24 (22-30) mmol/L BUN 11 (9-20) mg/dL Creatinine 1.0 (0.8-1.3) mg/dL Glucose 136 H (75-100) mg/dL Calcium 8.5 (8.4-10.2) mg/dL Calcium panel 03/10/21 Range/Units 09:30 Calcium 8.5 (8.4-10.2) mg/dL Pituitary panel 03/10/21 Range/Units 09:30 Sodium 135 L (137-145) mmol/L Potassium TNR Chloride 100.5 (98-107) mmol/L Carbon Dioxide 24 (22-30) mmol/L BUN 11 (9-20) mg/dL Creatinine 1.0 (0.8-1.3) mg/dL Glucose 136 H (75-100) mg/dL Calcium 8.5 (8.4-10.2) mg/dL Adrenal panel 03/10/21 Range/Units 09:30 Sodium 135 L (137-145) mmol/L Potassium TNR Chloride 100.5 (98-107) mmol/L Carbon Dioxide 24 (22-30) mmol/L BUN 11 (9-20) mg/dL Creatinine 1.0 (0.8-1.3) mg/dL Glucose 136 H (75-100) mg/dL Calcium 8.5 (8.4-10.2) mg/dL
[2021-03-11] MEDS: metroNIDAZOLE/NS 500 MG/100 ML 500 MG/100 ML BAG IV SCH ×3 (00:26→15:55)
[2021-03-11] MEDS: KETOROLAC 30 MG/1 ML INJ IV SCH ×4 (03:54→22:04)
[2021-03-11] MEDS: HEPARIN 5,000 UNIT/1 ML VIAL SUB-Q SCH ×3 (06:00→22:20)
[2021-03-11] MEDS: VANCOMYCIN 2,000 MG in SODIUM CHLORIDE 0.9% 500 ML 500 ML IV SCH ×2 (06:00→18:05)
[2021-03-11] MEDS: D5W/0.45% NACL 1,000 ML IV SCH ×2 (06:03→12:44)
[2021-03-11] MEDS: CEFEPIME/NS 2 GM/100 ML 2 GM/100 ML BAG IV SCH ×3 (07:47→23:51)
[2021-03-11] MEDS: FAMOTIDINE 20 MG/2 ML INJ IV SCH ×2 (09:35→22:04)
--- NOTE | 2021-03-11 11:14 | Progress Note ---
Assessment and Plan - Patient Problems (1) Parvin-rectal abscess Current Visit: Yes Status: Acute Plan to address problem: General surgery team consulted. Patient status post attempted I&D as per surgical team. Interventional radiology team consulted. (2) Obesity hypoventilation syndrome Current Visit: No Status: Acute Plan to address problem: Balanced diet, increase physical activity at discharge, outpatient pulmonary follow-up for sleep study, outpatient bariatric surgery follow-up. (3) DVT prophylaxis Current Visit: No Status: Acute Plan to address problem: SCD to bilateral lower extremities while in bed, patient is ambulatory History Interval history: 30 YO Male with Perirectal Abscess, SMO status post attempted surgical I&D of perirectal abscess. Patient abscess location makes it not amenable for surgical drainage. Patient currently pending IR intervention. Patient resting comfortably. Patient denies pain. No reported nursing events. Patient denies fever, rectal discharge. Hospitalist Physical - Constitutional Vitals: Temp Pulse Resp BP Pulse Ox 98.7 F 89 16 149/77 98 03/10/21 22:00 03/10/21 22:00 03/10/21 22:00 03/10/21 22:00 03/11/21 10:00 General appearance: Present: no acute distress, well-nourished, obese - EENT Eyes: Present: PERRL, EOM intact ENT: hearing intact - Neck Neck: Present: supple - Respiratory Respiratory effort: normal Respiratory: bilateral: CTA - Cardiovascular Rhythm: regular Heart Sounds: Present: S1 & S2 - Extremities Extremities: no ischemia Peripheral Pulses: within normal limits - Abdominal General gastrointestinal: soft, non-tender, non-distended - Integumentary Integumentary: Present: clear, dry - Psychiatric Psychiatric: appropriate mood/affect, cooperative - Neurologic Neurologic: CNII-XII intact Results - Labs CBC & Chem 7: 03/08/21 17:32 03/10/21 09:30 Labs: Laboratory Last Values WBC 14.9 K/mm3 (4.5-11.0) H 03/08/21 17:32 RBC 4.28 M/mm3 (3.65-5.03) 03/08/21 17:32 Hgb 12.7 gm/dl (11.8-15.2) 03/08/21 17:32 Hct 38.5 % (35.5-45.6) 03/08/21 17:32 MCV 90 fl (84-94) 03/08/21 17:32 MCH 30 pg (28-32) 03/08/21 17:32 MCHC 33 % (32-34) 03/08/21 17:32 RDW 13.0 % (13.2-15.2) L 03/08/21 17:32 Plt Count 450 K/mm3 (140-440) H 03/08/21 17:32 Lymph % (Auto) 18.6 % (13.4-35.0) 03/08/21 17:32 [place] % (Auto) 10.5 % (0.0-7.3) H 03/08/21 17:32 Eos % (Auto) 2.5 % (0.0-4.3) 03/08/21 17:32 Baso % (Auto) 0.7 % (0.0-1.8) 03/08/21 17:32 Lymph # (Auto) 2.8 K/mm3 (1.2-5.4) 03/08/21 17:32 [place] # (Auto) 1.6 K/mm3 (0.0-0.8) H 03/08/21 17:32 Eos # (Auto) 0.4 K/mm3 (0.0-0.4) 03/08/21 17:32 Baso # (Auto) 0.1 K/mm3 (0.0-0.1) 03/08/21 17:32 Seg Neutrophils % 67.7 % (40.0-70.0) 03/08/21 17:32 Seg Neutrophils # 10.1 K/mm3 (1.8-7.7) H 03/08/21 17:32 Sodium 135 mmol/L (137-145) L 03/10/21 09:30 Potassium TNR 03/10/21 09:30 Chloride 100.5 mmol/L (98-107) 03/10/21 09:30 Carbon Dioxide 24 mmol/L (22-30) 03/10/21 09:30 Anion Gap 17 mmol/L 03/10/21 09:30 BUN 11 mg/dL (9-20) 03/10/21 09:30 Creatinine 1.0 mg/dL (0.8-1.3) 03/10/21 09:30 Estimated GFR > 60 ml/min 03/10/21 09:30 BUN/Creatinine Ratio 11 % 03/10/21 09:30 Glucose 136 mg/dL (75-100) H 03/10/21 09:30 Calcium 8.5 mg/dL (8.4-10.2) 03/10/21 09:30 Urine Color Yellow (Yellow) 03/08/21 Unknown Urine Turbidity Clear (Clear) 03/08/21 Unknown Urine pH 6.0 (5.0-7.0) 03/08/21 Unknown Ur Specific [place] 1.017 (1.003-1.030) 03/08/21 Unknown Urine Protein 30 mg/dl mg/dL (Negative) 03/08/21 Unknown Urine Glucose (UA) Neg mg/dL (Negative) 03/08/21 Unknown Urine Ketones Neg mg/dL (Negative) 03/08/21 Unknown Urine Blood Sm (Negative) 03/08/21 Unknown Urine Nitrite Neg (Negative) 03/08/21 Unknown Urine Bilirubin Neg (Negative) 03/08/21 Unknown Urine Urobilinogen < 2.0 mg/dL (<2.0) 03/08/21 Unknown Ur Leukocyte Esterase Neg (Negative) 03/08/21 Unknown Urine WBC (Auto) 3.0 /HPF (0.0-6.0) 03/08/21 Unknown Urine RBC (Auto) 2.0 /HPF (0.0-6.0) 03/08/21 Unknown U Epithel Cells (Auto) 2.0 /HPF (0-13.0) 03/08/21 Unknown Microbiology: Microbiology 03/09/21 10:18 Rectum Surgical Culture - Preliminary 03/08/21 19:30 Urine,Clean Catch Urine Culture - Final NO GROWTH AFTER 48 HOURS [place]/IV: Voiding Method Urinal Active Medications - Current Medications Current Medications: Generic Name Dose Route Start Last Admin Trade Name Freq PRN Reason Stop Dose Admin Acetaminophen 650 mg 03/08/21 21:48 Acetaminophen 325 Mg Tab PO Q4H PRN Pain MILD(1-3)/Fever >100.5/ARREDONDO Famotidine 20 mg 03/08/21 22:00 03/11/21 09:35 Famotidine 20 Mg/2 Ml Inj IV 20 mg BID MICKIE Administration Heparin Sodium (Porcine) 5,000 unit 03/08/21 22:00 03/11/21 06:00 Heparin 5,000 Unit/1 Ml Vial SUB-Q 5,000 unit Q8HR MICKIE Administration Hydromorphone HCl 0.5 mg 03/08/21 21:48 03/09/21 05:20 Hydromorphone 1 Mg/1 Ml Inj IV 0.5 mg Q3H PRN Administration Pain , Severe (7-10) Sodium Chloride 1,000 mls @ 150 mls/hr 03/08/21 21:45 Nacl 0.9% 1000 Ml IV DIRECT MICKIE Dextrose/Sodium Chloride 1,000 mls @ 100 mls/hr 03/08/21 22:00 03/11/21 06:03 D5/0.45ns IV 100 mls/hr DIRECT MICKIE Administration Cefepime HCl 2 gm in 100 mls @ 200 mls/hr 03/09/21 16:00 03/11/21 07:47 Cefepime/Ns 2 Gm/100 Ml IV 200 mls/hr Q8H MICKIE Administration Protocol Metronidazole 500 mg in 100 mls @ 100 mls/hr 03/09/21 16:00 03/11/21 07:47 Flagyl 500 Mg/100 Ml IV 100 mls/hr Q8H MICKIE Administration Protocol Vancomycin HCl 2,000 mg/ 540 mls @ 250 mls/hr 03/09/21 18:00 03/11/21 06:00 Sodium Chloride IV 250 mls/hr Q12H MICKIE Administration Ketorolac Tromethamine 30 mg 03/10/21 10:00 03/11/21 09:35 Ketorolac 30 Mg/1 Ml Inj IV 03/15/21 09:59 30 mg Q6H MICKIE Administration Labetalol HCl 5 mg 03/09/21 17:50 Labetalol 20 Mg/4 Ml Inj IV Q10MIN PRN Hypertension Morphine Sulfate 2 mg 03/09/21 12:42 03/09/21 21:43 Morphine 2 Mg/1 Ml Inj IV 2 mg Q4H PRN Administration Pain , Severe (7-10) Ondansetron HCl 4 mg 03/08/21 21:48 Ondansetron 4 Mg/2 Ml Inj IV Q8H PRN Nausea And Vomiting Oxycodone/Acetaminophen 1 tab 03/08/21 21:48 03/10/21 06:08 Oxycodone /Acetaminophen 5-325mg Tab PO 1 tab Q6H PRN Administration Pain, Moderate (4-6) Sodium Chloride 10 ml 03/08/21 22:00 03/11/21 09:35 Sodium Chloride 0.9% 10 Ml Flush Syringe IV 10 ml BID MICKIE Administration Sodium Chloride 10 ml 03/08/21 21:48 Sodium Chloride 0.9% 10 Ml Flush Syringe IV PRN PRN LINE FLUSH
[2021-03-11] MEDS: oxyCODONE /ACETAMINOPHEN 5-325MG TAB PO PRN (16:04)
[2021-03-12] MEDS: metroNIDAZOLE/NS 500 MG/100 ML 500 MG/100 ML BAG IV SCH ×3 (00:13→16:12)
[2021-03-12] MEDS: KETOROLAC 30 MG/1 ML INJ IV SCH ×4 (03:50→22:10)
[2021-03-12 05:48] LABS: BUN/Creatinine Ratio 10; Blood Urea Nitrogen 10 mg/dL (9-20); Calcium 8.7 mg/dL (8.4-10.2); Hemolysis Index 0
[2021-03-12] MEDS: HEPARIN 5,000 UNIT/1 ML VIAL SUB-Q SCH ×3 (06:04→22:11)
[2021-03-12] MEDS: VANCOMYCIN 2,000 MG in SODIUM CHLORIDE 0.9% 500 ML 500 ML IV SCH ×2 (06:10→19:22)
[2021-03-12] MEDS ORDERED: fentaNYL 100 MCG/2 ML INJ IV NR (09:09)
[2021-03-12] MEDS ORDERED: MIDAZOLAM 5 MG/5 ML INJ MDV IV NR (09:09)
[2021-03-12] MEDS ORDERED: SODIUM CHLORIDE 0.9% 500 ML 500 ML IV SCH (10:00)
[2021-03-12 11:10] LABS: Hematocrit 38.7 % (35.5-45.6); Hemoglobin 12.9 gm/dl (11.8-15.2); Mean Corpuscular HGB Conc 33 % (32-34); Mean Corpuscular Volume 94 fl (84-94); Platelet Count 385 K/mm3 (140-440); Red Blood Count 4.11 M/mm3 (3.65-5.03); Red Cell Distribution Width 13.2 % (13.2-15.2)
--- NOTE | 2021-03-12 11:25 | Post Operative Note ---
Date of procedure: 03/12/21 Pre-op diagnosis: Perianal abscess Post-op diagnosis: same Findings: 25 mL of purulent fluid removed. Procedure: CT guided 8 Albanian APD drain placement in the perianal abscess Anesthesia: local Surgeon: SHARAD ANDREWS Estimated blood loss: minimal Condition: stable
--- NOTE | 2021-03-12 11:29 | Operative Report ---
Operative Report Operative Report: EXAM: CT guided access of the perirectal fluid collection with an 18-gauge needle and subsequent placement of an 8 Sudanese APD drain DATE: 03/12/2021 RISK CONTROL SPECIALIST: SHARAD ANDREWS MD INDICATION: Perirectal/perianal fluid collection unable to be approached from a open surgical standpoint MEDICATIONS: Please see nursing report for full details. DEVICES: 8 Sudanese APD drain PROCEDURE: The risks, benefits, and alternatives of the procedure were discussed and written informed consent was obtained. The patient was transported in stable condition to the CT suite. Patient was positioned in a prone position. A cookie padder CT was performed of the pelvis determining optimal location. The perirectal fluid collection was then targeted with an 18-gauge needle which was targeted with intermittent CT guidance. The collection was then reached and purulent fluid was aspirated. 0.035 inch J-wire was then passed into the collection and the needle was exchanged for 8 Sudanese APD drain which was advanced over the wire and then deployed. 25 to 30 mL of purulent fluid was then obtained. Drain was then secured with 2, 2-0 silk sutures. Patient tolerated the procedure well. No immediate postprocedural complications IMPRESSION: Successful placement of an 8 Sudanese APD perirectal drain.
--- NOTE | 2021-03-12 11:32 | Progress Note ---
Assessment and Plan Cultures: Urine culture no growth so far A/P: 30-year-old man past medical history morbid obesity, hypertension admitted with worsening perirectal abscess #Perirectal abscess: s/p surgical exploration and IR drainage. #Leukocytosis: Secondary to sepsis. #Morbid obesity Recs: -Adjusted antibiotics to vancomycin, cefepime, Flagyl. -Follow up cultures. -We will plan on culture to therapy for discharge. Thank you for the consult, we will continue to follow. Daniela Richard MD [facility] O: [phone] F: [phone] Subjective Date of service: 03/12/21 Interval history: Afebrile, white count improving. Over the weekend had surgical exploration performed with no abscess seen, and then IR drainage of abscess yesterday. Zenaida iting cultures. Objective - Exam Narrative Exam: Physical Exam: Constitutional: Alert, cooperative. No acute distress Head, Ears, Nose: Normocephalic, atraumatic. External ears, nose normal Eyes: Conjunctivae/corneas clear. No icterus. No ptosis. Neck: Supple, no meningeal signs Oral: dentition fair, no thrush Cardiovascular: S1, S2 normal. Respiratory: Good air entry, clear to auscultation bilaterally GI: Soft, non-tender; bowel sounds normal. No peritoneal signs. Musculoskeletal: Perirectal exam deferred Skin: No rash or abscess Hem/Lymphatic: No palpable cervical or supraclavicular nodes. No lymphangitis Psych: Mood ok. Affect normal Neurological: Awake, alert, oriented. No gross abnormality - Constitutional Vitals: Vital Signs Temp Pulse Resp BP Pulse Ox 98.0 F 82 20 134/88 94 03/12/21 05:22 03/12/21 09:38 03/12/21 09:38 03/12/21 09:38 03/12/21 09:38 Temperature -Last 24 Hours Temperature 98.0 F Temperature 98.5 F Temperature 98.8 F Temperature 97.6 F - Labs CBC & Chem 7: 03/12/21 09:27 03/12/21 05:02 Labs: Abnormal lab results 03/12/21 Range/Units 05:02 Glucose 104 H (75-100) mg/dL
[2021-03-12] MEDS: FAMOTIDINE 20 MG/2 ML INJ IV SCH ×2 (14:19→22:11)
[2021-03-12] MEDS: CEFEPIME/NS 2 GM/100 ML 2 GM/100 ML BAG IV SCH ×2 (14:20→16:12)
[2021-03-12 17:01] LABS: Band Neutrophils # (Manual) 0.1 K/mm3; Total Cells Counted 100
[2021-03-12 17:02] LABS: Platelet Estimate Consistent w Auto; RBC Morphology Normal
--- NOTE | 2021-03-12 19:20 | Progress Note ---
Assessment and Plan Assessment and plan: Assessment and Plan - Patient Problems (1) Parvin-rectal abscess Current Visit: Yes Status: Acute Plan to address problem: Worsening left perirectal abscess noted on CT. General surgery team consulted and attempted I&D unsuccessfully. Interventional radiology was able to drain 25 mill of purulent fluid and they drain is placed. Currently no significant drain output. Clinically improving with the resolution of her leukocytosis. Patient remains afebrile. ID consulted and added Flagyl to vancomycin and cefepime. Surgical cultures pending. (2) severe obesity at risk for hypoventilation syndrome Current Visit: No Status: Acute Plan to address problem: Balanced diet, increase physical activity at discharge, outpatient pulmonary follow-up for sleep study, outpatient bariatric surgery follow-up. (3) DVT prophylaxis Current Visit: No Status: Acute Plan to address problem: SCD to bilateral lower extremities while in bed, patient is ambulatory History Interval history: Patient reports improving perirectal/left gluteal pain. No significant output from the drain. Remains afebrile and leukocytosis resolving. Surgical cultures pending. ID added Flagyl to vancomycin and cefepime. Hospitalist Physical - Constitutional Vitals: Temp Pulse Resp BP Pulse Ox 98.0 F 79 22 152/98 98 03/12/21 05:22 03/12/21 11:27 03/12/21 11:27 03/12/21 11:27 03/12/21 11:27 General appearance: Present: no acute distress, well-nourished, obese, other (Extremely obese) - EENT Eyes: Present: PERRL ENT: hearing intact - Neck Neck: Present: supple - Respiratory Respiratory effort: normal - Cardiovascular Rhythm: regular - Extremities Extremities: No edema - Abdominal General gastrointestinal: soft, non-tender - Neurologic Neurologic: no focal deficits - Additional findings Additional findings: Skin/wound: There inflammation and induration of inner left gluteal area. The drain is in place but without significant output. Mild to moderate tenderness. No significant redness. Results - Labs CBC & Chem 7: 03/12/21 09:27 03/12/21 05:02 Labs: Laboratory Last Values WBC 11.0 K/mm3 (4.5-11.0) 03/12/21 09:27 RBC 4.11 M/mm3 (3.65-5.03) 03/12/21 09:27 Hgb 12.9 gm/dl (11.8-15.2) 03/12/21 09:27 Hct 38.7 % (35.5-45.6) 03/12/21 09:27 MCV 94 fl (84-94) 03/12/21 09:27 MCH 31 pg (28-32) 03/12/21 09:27 MCHC 33 % (32-34) 03/12/21 09: RDW 13.2 % (13.2-15.2) 03/12/21 09:27 Plt Count 385 K/mm3 (140-440) 03/12/21 09:27 Lymph % (Auto) Classifier 03/12/21 09:27 [place] % (Auto) Classifier 03/12/21 09:27 Eos % (Auto) Classifier 03/12/21 09:27 Baso % (Auto) Classifier 03/12/21 09:27 Lymph # (Auto) Classifier 03/12/21 09:27 [place] # (Auto) Classifier 03/12/21 09:27 Eos # (Auto) Classifier 03/12/21 09:27 Baso # (Auto) Classifier 03/12/21 09:27 Add Manual Diff Complete 03/12/21 09:27 Total Counted 100 03/12/21 09:27 Seg Neutrophils % Classifier 03/12/21 09:27 Seg Neuts % (Manual) 57.0 % (40.0-70.0) 03/12/21 09:27 Band Neutrophils % 1.0 % 03/12/21 09:27 Lymphocytes % (Manual) 30.0 % (13.4-35.0) 03/12/21 09:27 Monocytes % (Manual) 7.0 % (0.0-7.3) 03/12/21 09:27 Eosinophils % (Manual) 5.0 % (0.0-4.3) H 03/12/21 09:27 Nucleated RBC % Not Reportable 03/12/21 09:27 Seg Neutrophils # Classifier 03/12/21 09:27 Seg Neutrophils # Man 6.3 K/mm3 (1.8-7.7) 03/12/21 09:27 Band Neutrophils # 0.1 K/mm3 03/12/21 09:27 Lymphocytes # (Manual) 3.3 K/mm3 (1.2-5.4) 03/12/21 09:27 Abs React Lymphs (Man) 0.0 K/mm3 03/12/21 09:27 Monocytes # (Manual) 0.8 K/mm3 (0.0-0.8) 03/12/21 09:27 Eosinophils # (Manual) 0.6 K/mm3 (0.0-0.4) H 03/12/21 09:27 Basophils # (Manual) 0.0 K/mm3 (0.0-0.1) 03/12/21 09:27 Metamyelocytes # 0.0 K/mm3 03/12/21 09:27 Myelocytes # 0.0 K/mm3 03/12/21 09:27 Promyelocytes # 0.0 K/mm3 03/12/21 09:27 Blast Cells # 0.0 K/mm3 03/12/21 09:27 WBC Morphology Not Reportable 03/12/21 09:27 Hypersegmented Neuts Not Reportable 03/12/21 09:27 Hyposegmented Neuts Not Reportable 03/12/21 09:27 Hypogranular Neuts Not Reportable 03/12/21 09:27 Smudge Cells Not Reportable 03/12/21 09:27 Toxic Granulation Not Reportable 03/12/21 09:27 Toxic Vacuolation Not Reportable 03/12/21 09:27 Dohle Bodies Not Reportable 03/12/21 09:27 Pelger-Huet Anomaly Not Reportable 03/12/21 09:27 Dania Rods Not Reportable 03/12/21 09:27 Platelet Estimate Consistent w auto 03/12/21 09:27 Clumped Platelets Not Reportable 03/12/21 09:27 Plt Clumps, EDTA Not Reportable 03/12/21 09:27 Large Platelets Not Reportable 03/12/21 09:27 Giant Platelets Not Reportable 03/12/21 09:27 Platelet Satelliting Not Reportable 03/12/21 09:27 Plt Morphology Comment Not Reportable 03/12/21 09:27 RBC Morphology Normal 03/12/21 09:27 Dimorphic RBCs Not Reportable 03/12/21 09:27 Polychromasia Not Reportable 03/12/21 09:27 Hypochromasia Not Reportable 03/12/21 09:27 Poikilocytosis Not Reportable 03/12/21 09:27 Anisocytosis Not Reportable 03/12/21 09:27 Microcytosis Not Reportable 03/12/21 09:27 Macrocytosis Not Reportable 03/12/21 09:27 Spherocytes Not Reportable 03/12/21 09:27 Pappenheimer Bodies Not Reportable 03/12/21 09:27 Sickle Cells Not Reportable 03/12/21 09:27 Target Cells Not Reportable 03/12/21 09:27 Tear Drop Cells Not Reportable 03/12/21 09:27 Ovalocytes Not Reportable 03/12/21 09:27 Helmet Cells Not Reportable 03/12/21 09:27 [place] Bodies Not Reportable 03/12/21 09:27 [place] Rings Not Reportable 03/12/21 09:27 [place] Cells Not Reportable 03/12/21 09:27 Bite Cells Not Reportable 03/12/21 09:27 Crenated Cell Not Reportable 03/12/21 09:27 Elliptocytes Not Reportable 03/12/21 09:27 Acanthocytes (Spur) Not Reportable 03/12/21 09:27 Rouleaux Not Reportable 03/12/21 09:27 Hemoglobin C Crystals Not Reportable 03/12/21 09:27 Schistocytes Not Reportable 03/12/21 09:27 Malaria parasites Not Reportable 03/12/21 09:27 [place] Bodies Not Reportable 03/12/21 09:27 Hem Pathologist Commnt No 03/12/21 09:27 Sodium 138 mmol/L (137-145) 03/12/21 05:02 Potassium 4.0 mmol/L (3.6-5.0) 03/12/21 05:02 Chloride 104.2 mmol/L (98-107) 03/12/21 05:02 Carbon Dioxide 22 mmol/L (22-30) 03/12/21 05:02 Anion Gap 16 mmol/L 03/12/21 05:02 BUN 10 mg/dL (9-20) 03/12/21 05:02 Creatinine 1.0 mg/dL (0.8-1.3) 03/12/21 05:02 Estimated GFR > 60 ml/min 03/12/21 05:02 BUN/Creatinine Ratio 10 % 03/12/21 05:02 Glucose 104 mg/dL (75-100) H 03/12/21 05:02 Calcium 8.7 mg/dL (8.4-10.2) 03/12/21 05:02 Urine Color Yellow (Yellow) 03/08/21 Unknown Urine Turbidity Clear (Clear) 03/08/21 Unknown Urine pH 6.0 (5.0-7.0) 03/08/21 Unknown Ur Specific [place] 1.017 (1.003-1.030) 03/08/21 Unknown Urine Protein 30 mg/dl mg/dL (Negative) 03/08/21 Unknown Urine Glucose (UA) Neg mg/dL (Negative) 03/08/21 Unknown Urine Ketones Neg mg/dL (Negative) 03/08/21 Unknown Urine Blood Sm (Negative) 03/08/21 Unknown Urine Nitrite Neg (Negative) 03/08/21 Unknown Urine Bilirubin Neg (Negative) 03/08/21 Unknown Urine Urobilinogen < 2.0 mg/dL (<2.0) 03/08/21 Unknown Ur Leukocyte Esterase Neg (Negative) 03/08/21 Unknown Urine WBC (Auto) 3.0 /HPF (0.0-6.0) 03/08/21 Unknown Urine RBC (Auto) 2.0 /HPF (0.0-6.0) 03/08/21 Unknown U Epithel Cells (Auto) 2.0 /HPF (0-13.0) 03/08/21 Unknown Vancomycin Trough 18.6 ug/mL (5.0-20.0) 03/12/21 05:02 Microbiology: Microbiology 03/12/21 Unknown Buttock Surgical Culture - Preliminary 03/09/21 10:18 Rectum Surgical Culture - Final Jerri Albicans 03/09/21 10:18 Rectum Anaerobic Culture - Preliminary [place]/IV: Voiding Method Urinal Active Medications - Current Medications Current Medications: Generic Name Dose Route Start Last Admin Trade Name Freq PRN Reason Stop Dose Admin Acetaminophen 650 mg 03/08/21 21:48 Acetaminophen 325 Mg Tab PO Q4H PRN Pain MILD(1-3)/Fever >100.5/ARREDONDO Famotidine 20 mg 03/08/21 22:00 03/12/21 14:19 Famotidine 20 Mg/2 Ml Inj IV 20 mg BID MICKIE Administration Heparin Sodium (Porcine) 5,000 unit 03/08/21 22:00 03/12/21 14:20 Heparin 5,000 Unit/1 Ml Vial SUB-Q 5,000 unit Q8HR MICKIE Administration Hydromorphone HCl 0.5 mg 03/08/21 21:48 03/09/21 05:20 Hydromorphone 1 Mg/1 Ml Inj IV 0.5 mg Q3H PRN Administration Pain , Severe (7-10) Sodium Chloride 1,000 mls @ 150 mls/hr 03/08/21 21:45 Nacl 0.9% 1000 Ml IV DIRECT MICKIE Dextrose/Sodium Chloride 1,000 mls @ 100 mls/hr 03/08/21 22:00 03/11/21 12:44 D5/0.45ns IV 100 mls/hr DIRECT MICKIE Administration Cefepime HCl 2 gm in 100 mls @ 200 mls/hr 03/09/21 16:00 03/12/21 16:12 Cefepime/Ns 2 Gm/100 Ml IV Not Given Q8H MICKIE Protocol Metronidazole 500 mg in 100 mls @ 100 mls/hr 03/09/21 16:00 03/12/21 16:12 Flagyl 500 Mg/100 Ml IV Not Given Q8H [facility] Protocol Vancomycin HCl 2,000 mg/ 540 mls @ 250 mls/hr 03/09/21 18:00 03/12/21 06:10 Sodium Chloride IV 250 mls/hr Q12H MICKIE Administration Sodium Chloride 500 mls @ 50 mls/hr 03/12/21 10:00 Nacl 0.9% 500 Ml IV 03/12/21 19:59 DIRECT MICKIE Ketorolac Tromethamine 30 mg 03/10/21 10:00 03/12/21 16:10 Ketorolac 30 Mg/1 Ml Inj IV 03/15/21 09:59 Not Given Q6H MICKIE Labetalol HCl 5 mg 03/09/21 17:50 Labetalol 20 Mg/4 Ml Inj IV Q10MIN PRN Hypertension Morphine Sulfate 2 mg 03/09/21 12:42 03/09/21 21:43 Morphine 2 Mg/1 Ml Inj IV 2 mg Q4H PRN Administration Pain , Severe (7-10) Ondansetron HCl 4 mg 03/08/21 21:48 Ondansetron 4 Mg/2 Ml Inj IV Q8H PRN Nausea And Vomiting Oxycodone/Acetaminophen 1 tab 03/08/21 21:48 03/11/21 16:04 Oxycodone /Acetaminophen 5-325mg Tab PO 1 tab Q6H PRN Administration Pain, Moderate (4-6) Sodium Chloride 10 ml 03/08/21 22:00 03/12/21 16:12 Sodium Chloride 0.9% 10 Ml Flush Syringe IV 10 ml BID MICKIE Administration Sodium Chloride 10 ml 03/08/21 21:48 Sodium Chloride 0.9% 10 Ml Flush Syringe IV PRN PRN LINE FLUSH
[2021-03-13] MEDS: metroNIDAZOLE/NS 500 MG/100 ML 500 MG/100 ML BAG IV SCH ×3 (00:17→18:34)
[2021-03-13] MEDS: CEFEPIME/NS 2 GM/100 ML 2 GM/100 ML BAG IV SCH ×3 (00:18→18:34)
[2021-03-13] MEDS: D5W/0.45% NACL 1,000 ML IV SCH (02:31)
[2021-03-13] MEDS: HEPARIN 5,000 UNIT/1 ML VIAL SUB-Q SCH ×2 (06:26→14:40)
[2021-03-13] MEDS: KETOROLAC 30 MG/1 ML INJ IV SCH ×3 (06:28→17:50)
[2021-03-13] MEDS: VANCOMYCIN 2,000 MG in SODIUM CHLORIDE 0.9% 500 ML 500 ML IV SCH ×2 (06:29→19:31)
[2021-03-13] MEDS: HYDROmorphone 1 MG/1 ML INJ IV PRN ×3 (06:36→22:45)
--- NOTE | 2021-03-13 09:16 | Progress Note ---
Assessment and Plan Assessment and plan: 30 YO Male with Perirectal Abscess, SMO status post attempted surgical I&D of perirectal abscess. Patient abscess location makes it not amenable for surgical drainage. Patient currently pending IR intervention. Patient resting comfortably. Patient denies pain. No reported nursing events. Patient denies fever, rectal discharge. 03/13: Continue supportive care, ID plans to tailor it to be low cost given his financial difficulties preventing him from taking antibiotics previously based on culture. Case management will assist where possible Patient reports improving perirectal/left gluteal pain. No significant output from the drain. Remains afebrile and leukocytosis resolving. Surgical cultures pending. ID added Flagyl to vancomycin and cefepime. (1) Parvin-rectal abscess Current Visit: Yes Status: Acute Plan to address problem: Worsening left perirectal abscess noted on CT. General surgery team consulted and attempted I&D unsuccessfully. Interventional radiology was able to drain 25 mill of purulent fluid and they drain is placed. Currently no significant drain output. Clinically improving with the resolution of her leukocytosis. Patient remains afebrile. ID consulted and added Flagyl to vancomycin and cefepime. Surgical cultures pending. (2) severe obesity at risk for hypoventilation syndrome Current Visit: No Status: Acute Plan to address problem: Balanced diet, increase physical activity at discharge, outpatient pulmonary follow-up for sleep study, outpatient bariatric surgery follow-up. (3) DVT prophylaxis Current Visit: No Status: Acute Plan to address problem: SCD to bilateral lower extremities while in bed, patient is ambulatory History Interval history: Patient seen and examined resting comfortably no new complaints SHANON drain still with mild drainage. Hospitalist Physical - Physical exam Narrative exam: General appearance: Present: no acute distress, well-nourished, obese, other (Extremely obese) - EENT Eyes: Present: PERRL ENT: hearing intact - Neck Neck: Present: supple - Respiratory Respiratory effort: normal - Cardiovascular Rhythm: regular - Extremities Extremities: No edema - Abdominal General gastrointestinal: soft, non-tender - Neurologic Neurologic: no focal deficits - Constitutional Vitals: Temp Pulse Resp BP Pulse Ox 98.8 F 75 18 139/88 99 03/13/21 03:35 03/13/21 03:35 03/13/21 03:35 03/13/21 03:35 03/13/21 03:35 General appearance: Present: no acute distress, well-nourished, obese, other (Extremely obese) Results - Labs CBC & Chem 7: 03/12/21 09:27 03/12/21 05:02 Labs: Laboratory Last Values WBC 11.0 K/mm3 (4.5-11.0) 03/12/21 09:27 RBC 4.11 M/mm3 (3.65-5.03) 03/12/21 09:27 Hgb 12.9 gm/dl (11.8-15.2) 03/12/21 09:27 Hct 38.7 % (35.5-45.6) 03/12/21 09:27 MCV 94 fl (84-94) 03/12/21 09:27 MCH 31 pg (28-32) 03/12/21 09:27 MCHC 33 % (32-34) 03/12/21 09:27 RDW 13.2 % (13.2-15.2) 03/12/21 09:27 Plt Count 385 K/mm3 (140-440) 03/12/21 09:27 Lymph % (Auto) [place] 03/12/21 09:27 [place] % (Auto) Carbon Setter 03/12/21 09:27 Eos % (Auto) [place] 03/12/21 09:27 Baso % (Auto) [place] 03/12/21 09:27 Lymph # (Auto) [place] 03/12/21 09:27 [place] # (Auto) Carbon Setter 03/12/21 09:27 Eos # (Auto) [place] Set[place] 03/12/21 09:27 Baso # (Auto) [place] 03/12/21 09:27 Add Manual Diff Complete 03/12/21 09:27 Total Counted 100 03/12/21 09:27 Seg Neutrophils % [place] 03/12/21 09:27 Seg Neuts % (Manual) 57.0 % (40.0-70.0) 03/12/21 09:27 Band Neutrophils % 1.0 % 03/12/21 09:27 Lymphocytes % (Manual) 30.0 % (13.4-35.0) 03/12/21 09:27 Monocytes % (Manual) 7.0 % (0.0-7.3) 03/12/21 09:27 Eosinophils % (Manual) 5.0 % (0.0-4.3) H 03/12/21 09:27 Nucleated RBC % Not Reportable 03/12/21 09:27 Seg Neutrophils # [place] 03/12/21 09:27 Seg Neutrophils # Man 6.3 K/mm3 (1.8-7.7) 03/12/21 09:27 Band Neutrophils # 0.1 K/mm3 03/12/21 09:27 Lymphocytes # (Manual) 3.3 K/mm3 (1.2-5.4) 03/12/21 09:27 Abs React Lymphs (Man) 0.0 K/mm3 03/12/21 09:27 Monocytes # (Manual) 0.8 K/mm3 (0.0-0.8) 03/12/21 09:27 Eosinophils # (Manual) 0.6 K/mm3 (0.0-0.4) H 03/12/21 09:27 Basophils # (Manual) 0.0 K/mm3 (0.0-0.1) 03/12/21 09:27 Metamyelocytes # 0.0 K/mm3 03/12/21 09:27 Myelocytes # 0.0 K/mm3 03/12/21 09:27 Promyelocytes # 0.0 K/mm3 03/12/21 09:27 Blast Cells # 0.0 K/mm3 03/12/21 09:27 WBC Morphology Not Reportable 03/12/21 09:27 Hypersegmented Neuts Not Reportable 03/12/21 09:27 Hyposegmented Neuts Not Reportable 03/12/21 09:27 Hypogranular Neuts Not Reportable 03/12/21 09:27 Smudge Cells Not Reportable 03/12/21 09:27 Toxic Granulation Not Reportable 03/12/21 09:27 Toxic Vacuolation Not Reportable 03/12/21 09:27 Dohle Bodies Not Reportable 03/12/21 09:27 Pelger-Huet Anomaly Not Reportable 03/12/21 09:27 Dania Rods Not Reportable 03/12/21 09:27 Platelet Estimate Consistent w auto 03/12/21 09:27 Clumped Platelets Not Reportable 03/12/21 09:27 Plt Clumps, EDTA Not Reportable 03/12/21 09:27 Large Platelets Not Reportable 03/12/21 09:27 Giant Platelets Not Reportable 03/12/21 09:27 Platelet Satelliting Not Reportable 03/12/21 09:27 Plt Morphology Comment Not Reportable 03/12/21 09:27 RBC Morphology Normal 03/12/21 09:27 Dimorphic RBCs Not Reportable 03/12/21 09:27 Polychromasia Not Reportable 03/12/21 09:27 Hypochromasia Not Reportable 03/12/21 09:27 Poikilocytosis Not Reportable 03/12/21 09:27 Anisocytosis Not Reportable 03/12/21 09:27 Microcytosis Not Reportable 03/12/21 09:27 Macrocytosis Not Reportable 03/12/21 09:27 Spherocytes Not Reportable 03/12/21 09:27 Pappenheimer Bodies Not Reportable 03/12/21 09:27 Sickle Cells Not Reportable 03/12/21 09:27 Target Cells Not Reportable 03/12/21 09:27 Tear Drop Cells Not Reportable 03/12/21 09:27 Ovalocytes Not Reportable 03/12/21 09:27 Helmet Cells Not Reportable 03/12/21 09:27 [place] Bodies Not Reportable 03/12/21 09:27 [place] Rings Not Reportable 03/12/21 09:27 Marj Cells Not Reportable 03/12/21 09:27 Bite Cells Not Reportable 03/12/21 09:27 Crenated Cell Not Reportable 03/12/21 09:27 Elliptocytes Not Reportable 03/12/21 09:27 Acanthocytes (Spur) Not Reportable 03/12/21 09:27 Rouleaux Not Reportable 03/12/21 09:27 Hemoglobin C Crystals Not Reportable 03/12/21 09:27 Schistocytes Not Reportable 03/12/21 09:27 Malaria parasites Not Reportable 03/12/21 09:27 [place] Bodies Not Reportable 03/12/21 09:27 Hem Pathologist Commnt No 03/12/21 09:27 Sodium 138 mmol/L (137-145) 03/12/21 05:02 Potassium 4.0 mmol/L (3.6-5.0) 03/12/21 05:02 Chloride 104.2 mmol/L (98-107) 03/12/21 05:02 Carbon Dioxide 22 mmol/L (22-30) 03/12/21 05:02 Anion Gap 16 mmol/L 03/12/21 05:02 BUN 10 mg/dL (9-20) 03/12/21 05:02 Creatinine 1.0 mg/dL (0.8-1.3) 03/12/21 05:02 Estimated GFR > 60 ml/min 03/12/21 05:02 BUN/Creatinine Ratio 10 % 03/12/21 05:02 Glucose 104 mg/dL (75-100) H 03/12/21 05:02 Calcium 8.7 mg/dL (8.4-10.2) 03/12/21 05:02 Urine Color Yellow (Yellow) 03/08/21 Unknown Urine Turbidity Clear (Clear) 03/08/21 Unknown Urine pH 6.0 (5.0-7.0) 03/08/21 Unknown Ur Specific [place] 1.017 (1.003-1.030) 03/08/21 Unknown Urine Protein 30 mg/dl mg/dL (Negative) 03/08/21 Unknown Urine Glucose (UA) Neg mg/dL (Negative) 03/08/21 Unknown Urine Ketones Neg mg/dL (Negative) 03/08/21 Unknown Urine Blood Sm (Negative) 03/08/21 Unknown Urine Nitrite Neg (Negative) 03/08/21 Unknown Urine Bilirubin Neg (Negative) 03/08/21 Unknown Urine Urobilinogen < 2.0 mg/dL (<2.0) 03/08/21 Unknown Ur Leukocyte Esterase Neg (Negative) 03/08/21 Unknown Urine WBC (Auto) 3.0 /HPF (0.0-6.0) 03/08/21 Unknown Urine RBC (Auto) 2.0 /HPF (0.0-6.0) 03/08/21 Unknown U Epithel Cells (Auto) 2.0 /HPF (0-13.0) 03/08/21 Unknown Vancomycin Trough 18.6 ug/mL (5.0-20.0) 03/12/21 05:02 Microbiology: Microbiology 03/12/21 Unknown Buttock Surgical Culture - Preliminary 03/09/21 10:18 Rectum Surgical Culture - Final Jerri Albicans 03/09/21 10:18 Rectum Anaerobic Culture - Preliminary [place]/IV: Voiding Method Urinal Active Medications - Current Medications Current Medications: Generic Name Dose Route Start Last Admin Trade Name Freq PRN Reason Stop Dose Admin Acetaminophen 650 mg 03/08/21 21:48 Acetaminophen 325 Mg Tab PO Q4H PRN Pain MILD(1-3)/Fever >100.5/ARREDONDO Famotidine 20 mg 03/08/21 22:00 03/12/21 22:11 Famotidine 20 Mg/2 Ml Inj IV 20 mg BID MICKIE Administration Heparin Sodium (Porcine) 5,000 unit 03/08/21 22:00 03/13/21 06:26 Heparin 5,000 Unit/1 Ml Vial SUB-Q 5,000 unit Q8HR MICKIE Administration Hydromorphone HCl 0.5 mg 03/08/21 21:48 03/13/21 06:36 Hydromorphone 1 Mg/1 Ml Inj IV 0.5 mg Q3H PRN Administration Pain , Severe (7-10) Sodium Chloride 1,000 mls @ 150 mls/hr 03/08/21 21:45 Nacl 0.9% 1000 Ml IV DIRECT MICKIE Dextrose/Sodium Chloride 1,000 mls @ 100 mls/hr 03/08/21 22:00 03/13/21 02:31 D5/0.45ns IV 100 mls/hr DIRECT MICKIE Administration Cefepime HCl 2 gm in 100 mls @ 200 mls/hr 03/09/21 16:00 03/13/21 02:42 Cefepime/Ns 2 Gm/100 Ml IV Infused Q8H MICKIE Infusion Protocol Metronidazole 500 mg in 100 mls @ 100 mls/hr 03/09/21 16:00 03/13/21 06:19 Flagyl 500 Mg/100 Ml IV Infused Q8H [facility] Infusion Protocol Vancomycin HCl 2,000 mg/ 540 mls @ 250 mls/hr 03/09/21 18:00 03/13/21 06:29 Sodium Chloride IV 250 mls/hr Q12H MICKIE Administration Ketorolac Tromethamine 30 mg 03/10/21 10:00 03/13/21 06:28 Ketorolac 30 Mg/1 Ml Inj IV 03/15/21 09:59 30 mg Q6H MICKIE Administration Labetalol HCl 5 mg 03/09/21 17:50 Labetalol 20 Mg/4 Ml Inj IV Q10MIN PRN Hypertension Morphine Sulfate 2 mg 03/09/21 12:42 03/09/21 21:43 Morphine 2 Mg/1 Ml Inj IV 2 mg Q4H PRN Administration Pain , Severe (7-10) Ondansetron HCl 4 mg 03/08/21 21:48 Ondansetron 4 Mg/2 Ml Inj IV Q8H PRN Nausea And Vomiting Oxycodone/Acetaminophen 1 tab 03/08/21 21:48 03/11/21 16:04 Oxycodone /Acetaminophen 5-325mg Tab PO 1 tab Q6H PRN Administration Pain, Moderate (4-6) Sodium Chloride 10 ml 03/08/21 22:00 03/12/21 22:11 Sodium Chloride 0.9% 10 Ml Flush Syringe IV 10 ml BID MICKIE Administration Sodium Chloride 10 ml 03/08/21 21:48 Sodium Chloride 0.9% 10 Ml Flush Syringe IV PRN PRN LINE FLUSH
--- NOTE | 2021-03-13 12:16 | Progress Note ---
Assessment and Plan Cultures: Urine culture no growth so far A/P: 30-year-old man past medical history morbid obesity, hypertension admitted with worsening perirectal abscess #Perirectal abscess: s/p surgical exploration and IR drainage. #Leukocytosis: Secondary to sepsis. #Morbid obesity Recs: -Adjusted antibiotics to vancomycin, cefepime, Flagyl. -Follow up cultures. -We will plan on culture directed therapy for discharge. We will attempt to una dyllan it to be low cost given his financial difficulties preventing him from taking antibiotics previously Thank you for the consult, we will continue to follow. Daniela Richard MD [facility] O: [phone] F: [phone] Subjective Date of service: 03/13/21 Interval history: Afebrile, improved white count now 11. Cultures remain negative. Objective - Exam Narrative Exam: Physical Exam: Constitutional: Alert, cooperative. No acute distress Head, Ears, Nose: Normocephalic, atraumatic. External ears, nose normal Eyes: Conjunctivae/corneas clear. No icterus. No ptosis. Neck: Supple, no meningeal signs Oral: dentition fair, no thrush Cardiovascular: S1, S2 normal. Respiratory: Good air entry, clear to auscultation bilaterally GI: Soft, non-tender; bowel sounds normal. No peritoneal signs. Musculoskeletal: Perirectal exam deferred Skin: No rash or abscess Hem/Lymphatic: No palpable cervical or supraclavicular nodes. No lymphangitis Psych: Mood ok. Affect normal Neurological: Awake, alert, oriented. No gross abnormality - Constitutional Vitals: Vital Signs Temp Pulse Resp BP Pulse Ox 98.8 F 75 18 139/88 99 03/13/21 03:35 03/13/21 03:35 03/13/21 03:35 03/13/21 03:35 03/13/21 03:35 Temperature -Last 24 Hours Temperature 98.8 F Temperature 98.2 F Temperature 97.7 F - Labs CBC & Chem 7: 03/12/21 09:27 03/12/21 05:02 Labs: Abnormal lab results 03/12/21 Range/Units 09:27 Eosinophils % (Manual) 5.0 H (0.0-4.3) % Eosinophils # (Manual) 0.6 H (0.0-0.4) K/mm3
[2021-03-13] MEDS: FAMOTIDINE 20 MG/2 ML INJ IV SCH ×2 (14:10→22:55)
[2021-03-14] MEDS: HEPARIN 5,000 UNIT/1 ML VIAL SUB-Q SCH ×4 (00:29→21:45)
[2021-03-14] MEDS: KETOROLAC 30 MG/1 ML INJ IV SCH ×3 (00:38→11:12)
[2021-03-14] MEDS: metroNIDAZOLE/NS 500 MG/100 ML 500 MG/100 ML BAG IV SCH ×3 (00:39→19:13)
[2021-03-14] MEDS: CEFEPIME/NS 2 GM/100 ML 2 GM/100 ML BAG IV SCH ×2 (00:39→11:11)
[2021-03-14] MEDS: HYDROmorphone 1 MG/1 ML INJ IV PRN ×2 (04:10→22:06)
[2021-03-14] MEDS: VANCOMYCIN 2,000 MG in SODIUM CHLORIDE 0.9% 500 ML 500 ML IV SCH ×2 (05:44→19:14)
[2021-03-14 08:08] LABS: BUN/Creatinine Ratio 11; Blood Urea Nitrogen 11 mg/dL (9-20); Hemolysis Index 5
[2021-03-14] MEDS: FAMOTIDINE 20 MG/2 ML INJ IV SCH (11:12)
[2021-03-14] MEDS: D5W/0.45% NACL 1,000 ML IV SCH (11:23)
--- NOTE | 2021-03-14 11:51 | Progress Note ---
Assessment and Plan Assessment and plan: 30 YO Male with Perirectal Abscess, SMO status post attempted surgical I&D of perirectal abscess. Patient abscess location makes it not amenable for surgical drainage. Patient currently pending IR intervention. Patient resting comfortably. Patient denies pain. No reported nursing events. Patient denies fever, rectal discharge. 03/13: Continue supportive care, ID plans to tailor it to be low cost given his financial difficulties preventing him from taking antibiotics previously based on culture. Case management will assist where possible Patient reports improving perirectal/left gluteal pain. No significant output from the drain. Remains afebrile and leukocytosis resolving. Surgical cultures pending. ID added Flagyl to vancomycin and cefepime. 03/14: Patient seen and examined, no new complaints. ID came later to evaluate patient with recommendation of "Would DC with Cipro 750mg q12h (free at [facility]) and Bactrim DS q12h (also free at [facility]) for 3 weeks" SURGICAL CULTURE SHOWING CELESTINE ALBICANS (1) Parvin-rectal abscess Current Visit: Yes Status: Acute Plan to address problem: Worsening left perirectal abscess noted on CT. General surgery team consulted and attempted I&D unsuccessfully. Interventional radiology was able to drain 25 mill of purulent fluid and they drain is placed. Currently no significant drain output. Clinically improving with the resolution of her leukocytosis. Patient remains afebrile. ID consulted and added Flagyl to vancomycin and cefepime. Sarmiento rgical cultures pending. (2) severe obesity at risk for hypoventilation syndrome Current Visit: No Status: Acute Plan to address problem: Balanced diet, increase physical activity at discharge, outpatient pulmonary follow-up for sleep study, outpatient bariatric surgery follow-up. (3) DVT prophylaxis Current Visit: No Status: Acute Plan to address problem: SCD to bilateral lower extremities while in bed, patient is ambulatory History Interval history: Patient seen and examined resting comfortably no new complaints SHANON drain with no measurable drainage. Hospitalist Physical - Physical exam Narrative exam: General appearance: Present: no acute distress, well-nourished, obese, other (Extremely obese) - EENT Eyes: Present: PERRL ENT: hearing intact - Neck Neck: Present: supple - Respiratory Respiratory effort: normal - Cardiovascular Rhythm: regular - Extremities Extremities: No edema - Abdominal General gastrointestinal: soft, non-tender - Neurologic Neurologic: no focal deficits - Constitutional Vitals: Temp Pulse Resp BP Pulse Ox 98.1 F 70 18 153/92 97 03/14/21 05:45 03/14/21 05:45 03/14/21 05:45 03/14/21 05:45 03/14/21 05:45 General appearance: Present: no acute distress, well-nourished, obese, other (Extremely obese) Results - Labs CBC & Chem 7: 03/12/21 09:27 03/14/21 07:35 Labs: Laboratory Last Values WBC 11.0 K/mm3 (4.5-11.0) 03/12/21 09:27 RBC 4.11 M/mm3 (3.65-5.03) 03/12/21 09:27 Hgb 12.9 gm/dl (11.8-15.2) 03/12/21 09:27 Hct 38.7 % (35.5-45.6) 03/12/21 09:27 MCV 94 fl (84-94) 03/12/21 09:27 MCH 31 pg (28-32) 03/12/21 09:27 MCHC 33 % (32-34) 03/12/21 09:27 RDW 13.2 % (13.2-15.2) 03/12/21 09:27 Plt Count 385 K/mm3 (140-440) 03/12/21 09:27 Lymph % (Auto) Elderly Sitter 03/12/21 09:27 [place] % (Auto) Elderly Sitter 03/12/21 09:27 Eos % (Auto) Elderly Sitter 03/12/21 09:27 Baso % (Auto) Elderly Sitter 03/12/21 09:27 Lymph # (Auto) Elderly Sitter 03/12/21 09:27 [place] # (Auto) Elderly Sitter 03/12/21 09:27 Eos # (Auto) Elderly Sitter 03/12/21 09:27 Baso # (Auto) Elderly Sitter 03/12/21 09:27 Add Manual Diff Complete 03/12/21 09:27 Total Counted 100 03/12/21 09:27 Seg Neutrophils % Elderly Sitter 03/12/21 09:27 Seg Neuts % (Manual) 57.0 % (40.0-70.0) 03/12/21 09:27 Band Neutrophils % 1.0 % 03/12/21 09:27 Lymphocytes % (Manual) 30.0 % (13.4-35.0) 03/12/21 09:27 Monocytes % (Manual) 7.0 % (0.0-7.3) 03/12/21 09:27 Eosinophils % (Manual) 5.0 % (0.0-4.3) H 03/12/21 09:27 Nucleated RBC % Not Reportable 03/12/21 09:27 Seg Neutrophils # Elderly Sitter 03/12/21 09:27 Seg Neutrophils # Man 6.3 K/mm3 (1.8-7.7) 03/12/21 09:27 Band Neutrophils # 0.1 K/mm3 03/12/21 09:27 Lymphocytes # (Manual) 3.3 K/mm3 (1.2-5.4) 03/12/21 09:27 Abs React Lymphs (Man) 0.0 K/mm3 03/12/21 09:27 Monocytes # (Manual) 0.8 K/mm3 (0.0-0.8) 03/12/21 09:27 Eosinophils # (Manual) 0.6 K/mm3 (0.0-0.4) H 03/12/21 09:27 Basophils # (Manual) 0.0 K/mm3 (0.0-0.1) 03/12/21 09:27 Metamyelocytes # 0.0 K/mm3 03/12/21 09:27 Myelocytes # 0.0 K/mm3 03/12/21 09:27 Promyelocytes # 0.0 K/mm3 03/12/21 09:27 Blast Cells # 0.0 K/mm3 03/12/21 09:27 WBC Morphology Not Reportable 03/12/21 09:27 Hypersegmented Neuts Not Reportable 03/12/21 09:27 Hyposegmented Neuts Not Reportable 03/12/21 09:27 Hypogranular Neuts Not Reportable 03/12/21 09:27 Smudge Cells Not Reportable 03/12/21 09:27 Toxic Granulation Not Reportable 03/12/21 09:27 Toxic Vacuolation Not Reportable 03/12/21 09:27 Dohle Bodies Not Reportable 03/12/21 09:27 Pelger-Huet Anomaly Not Reportable 03/12/21 09:27 Dania Rods Not Reportable 03/12/21 09:27 Platelet Estimate Consistent w auto 10/11/21 09:27 Clumped Platelets Not Reportable 03/12/21 09:27 Plt Clumps, EDTA Not Reportable 03/12/21 09:27 Large Platelets Not Reportable 03/12/21 09:27 Giant Platelets Not Reportable 03/12/21 09:27 Platelet Satelliting Not Reportable 03/12/21 09:27 Plt Morphology Comment Not Reportable 03/12/21 09:27 RBC Morphology Normal 03/12/21 09:27 Dimorphic RBCs Not Reportable 03/12/21 09:27 Polychromasia Not Reportable 03/12/21 09:27 Hypochromasia Not Reportable 03/12/21 09:27 Poikilocytosis Not Reportable 03/12/21 09:27 Anisocytosis Not Reportable 03/12/21 09:27 Microcytosis Not Reportable 03/12/21 09:27 Macrocytosis Not Reportable 03/12/21 09:27 Spherocytes Not Reportable 03/12/21 09:27 Pappenheimer Bodies Not Reportable 03/12/21 09:27 Sickle Cells Not Reportable 03/12/21 09:27 Target Cells Not Reportable 03/12/21 09:27 Tear Drop Cells Not Reportable 03/12/21 09:27 Ovalocytes Not Reportable 03/12/21 09:27 Helmet Cells Not Reportable 03/12/21 09:[address] [place] Bodies Not Reportable 03/12/21 09:27 [place] Rings Not Reportable 03/12/21 09:27 [place] Cells Not Reportable 03/12/21 09:27 Bite Cells Not Reportable 03/12/21 09:27 Crenated Cell Not Reportable 03/12/21 09:27 Elliptocytes Not Reportable 03/12/21 09:27 Acanthocytes (Spur) Not Reportable 03/12/21 09:27 Rouleaux Not Reportable 03/12/21 09:27 Hemoglobin C Crystals Not Reportable 03/12/21 09:27 Schistocytes Not Reportable 03/12/21 09:27 Malaria parasites Not Reportable 03/12/21 09:27 [place] Bodies Not Reportable 03/12/21 09:27 Hem Pathologist Commnt No 03/12/21 09:27 Sodium 138 mmol/L (137-145) 03/14/21 07:35 Potassium 4.4 mmol/L (3.6-5.0) 03/14/21 07:35 Chloride 102.6 mmol/L (98-107) 03/14/21 07:35 Carbon Dioxide 23 mmol/L (22-30) 03/14/21 07:35 Anion Gap 17 mmol/L 03/14/21 07:35 BUN 11 mg/dL (9-20) 03/14/21 07:35 Creatinine 1.0 mg/dL (0.8-1.3) 03/14/21 07:35 Estimated GFR > 60 ml/min 03/14/21 07:35 BUN/Creatinine Ratio 11 % 03/14/21 07:35 Glucose 95 mg/dL (75-100) 03/14/21 07:35 Calcium 9.0 mg/dL (8.4-10.2) 03/14/21 07:35 Urine Color Yellow (Yellow) 03/08/21 Unknown Urine Turbidity Clear (Clear) 03/08/21 Unknown Urine pH 6.0 (5.0-7.0) 03/08/21 Unknown Ur Specific [place] 1.017 (1.003-1.030) 03/08/21 Unknown Urine Protein 30 mg/dl mg/dL (Negative) 03/08/21 Unknown Urine Glucose (UA) Neg mg/dL (Negative) 03/08/21 Unknown Urine Ketones Neg mg/dL (Negative) 03/08/21 Unknown Urine Blood Sm (Negative) 03/08/21 Unknown Urine Nitrite Neg (Negative) 03/08/21 Unknown Urine Bilirubin Neg (Negative) 03/08/21 Unknown Urine Urobilinogen < 2.0 mg/dL (<2.0) 03/08/21 Unknown Ur Leukocyte Esterase Neg (Negative) 03/08/21 Unknown Urine WBC (Auto) 3.0 /HPF (0.0-6.0) 03/08/21 Unknown Urine RBC (Auto) 2.0 /HPF (0.0-6.0) 03/08/21 Unknown U Epithel Cells (Auto) 2.0 /HPF (0-13.0) 03/08/21 Unknown Vancomycin Trough 18.6 ug/mL (5.0-20.0) 03/12/21 05:02 Microbiology: Microbiology 03/12/21 Unknown Buttock Surgical Culture - Preliminary [place]/IV: Voiding Method Toilet Active Medications - Current Medications Current Medications: Generic Name Dose Route Start Last Admin Trade Name Freq PRN Reason Stop Dose Admin Acetaminophen 650 mg 03/08/21 21:48 Acetaminophen 325 Mg Tab PO Q4H PRN Pain MILD(1-3)/Fever >100.5/ARREDONDO Famotidine 20 mg 03/14/21 22:00 Famotidine 20 Mg Tab PO BID MICKIE Heparin Sodium (Porcine) 5,000 unit 03/08/21 22:00 03/14/21 05:43 Heparin 5,000 Unit/1 Ml Vial SUB-Q 5,000 unit Q8HR MICKIE Administration Hydromorphone HCl 0.5 mg 03/08/21 21:48 03/14/21 04:10 Hydromorphone 1 Mg/1 Ml Inj IV 0.5 mg Q3H PRN Administration Pain , Severe (7-10) Sodium Chloride 1,000 mls @ 150 mls/hr 03/08/21 21:45 Nacl 0.9% 1000 Ml IV DIRECT MICKIE Dextrose/Sodium Chloride 1,000 mls @ 100 mls/hr 03/08/21 22:00 03/14/21 11:23 D5/0.45ns IV 100 mls/hr DIRECT MICKIE Administration Cefepime HCl 2 gm in 100 mls @ 200 mls/hr 03/09/21 16:00 03/14/21 11:11 Cefepime/Ns 2 Gm/100 Ml IV 200 mls/hr Q8H MICKIE Administration Protocol Metronidazole 500 mg in 100 mls @ 100 mls/hr 03/09/21 16:00 03/14/21 11:11 Flagyl 500 Mg/100 Ml IV 100 mls/hr Q8H MICKIE Administration Protocol Vancomycin HCl 2,000 mg/ 540 mls @ 250 mls/hr 03/09/21 18:00 03/14/21 05:44 Sodium Chloride IV 250 mls/hr Q12H MICKIE Administration Ketorolac Tromethamine 30 mg 03/10/21 10:00 03/14/21 11:12 Ketorolac 30 Mg/1 Ml Inj IV 03/15/21 09:59 30 mg Q6H MICKIE Administration Labetalol HCl 5 mg 03/09/21 17:50 Labetalol 20 Mg/4 Ml Inj IV Q10MIN PRN Hypertension Morphine Sulfate 2 mg 03/09/21 12:42 03/09/21 21:43 Morphine 2 Mg/1 Ml Inj IV 2 mg Q4H PRN Administration Pain , Severe (7-10) Ondansetron HCl 4 mg 03/08/21 21:48 03/13/21 17:33 Ondansetron 4 Mg/2 Ml Inj IV 4 mg Q8H PRN Administration Nausea And Vomiting Oxycodone/Acetaminophen 1 tab 03/08/21 21:48 03/11/21 16:04 Oxycodone /Acetaminophen 5-325mg Tab PO 1 tab Q6H PRN Administration Pain, Moderate (4-6) Sodium Chloride 10 ml 03/08/21 22:00 03/14/21 11:10 Sodium Chloride 0.9% 10 Ml Flush Syringe IV 10 ml BID MICKIE Administration Sodium Chloride 10 ml 03/08/21 21:48 Sodium Chloride 0.9% 10 Ml Flush Syringe IV PRN PRN LINE FLUSH
--- NOTE | 2021-03-14 16:57 | Progress Note ---
Assessment and Plan Cultures: Urine culture no growth so far A/P: 30-year-old man past medical history morbid obesity, hypertension admitted with worsening perirectal abscess #Perirectal abscess: s/p surgical exploration and IR drainage. #Leukocytosis: Secondary to sepsis. #Morbid obesity Recs: -Adjusted antibiotics to vancomycin, cefepime, Flagyl. -We will plan on culture directed therapy for discharge. We will attempt to tailor it to be low cost given his financial difficulties preventing him from taking antibiotics previously -Would DC with Cipro 750mg q12h (free at [facility]) and Bactrim DS q12h (also free at [facility]) for 3 weeks. Thank you for the consult, we will continue to follow. Daniela Richard MD [facility] ([facility]) O: [phone] F: [phone] Subjective Date of service: 03/14/21 Interval history: Afebrile, normal white count now. Cultures are finalized as negative. Objective - Exam Narrative Exam: Physical Exam: Constitutional: Alert, cooperative. No acute distress Head, Ears, Nose: Normocephalic, atraumatic. External ears, nose normal Eyes: Conjunctivae/corneas clear. No icterus. No ptosis. Neck: Supple, no meningeal signs Oral: dentition fair, no thrush Cardiovascular: S1, S2 normal. Respiratory: Good air entry, clear to auscultation bilaterally GI: Soft, non-tender; bowel sounds normal. No peritoneal signs. Musculoskeletal: Perirectal exam deferred Skin: No rash or abscess Hem/Lymphatic: No palpable cervical or supraclavicular nodes. No lymphangitis Psych: Mood ok. Affect normal Neurological: Awake, alert, oriented. No gross abnormality - Constitutional Vitals: Vital Signs Temp Pulse Resp BP Pulse Ox 98.7 F 70 18 179/97 95 03/14/21 12:05 03/14/21 12:05 03/14/21 12:05 03/14/21 12:05 03/14/21 12:05 Temperature -Last 24 Hours Temperature 98.7 F Temperature 98.1 F Temperature 98.0 F - Labs CBC & Chem 7: 03/12/21 09:27 03/14/21 07:35
--- NOTE | 2021-03-14 17:25 | Discharge Summary ---
Providers - Providers Date of Admission: 03/08/21 21:37 Attending physician: CARMELO BENJAMIN MD 03/08/21 21:48 Consult to Physician [CONS] Routine Comment: Consulting Provider: BENJAMIN DENNISON Physician Instructions: Reason For Exam: Perirectal abscess 03/08/21 21:51 Consult to Physician [CONS] Routine Comment: Dr. Ricks spoke with Dr. Land @ 1700 Consulting Provider: AYAAN LAND Physician Instructions: Reason For Exam: Rectal abscess 03/09/21 17:21 Consult to Interventional Radiology [CONS] Routine Consulting Provider: SHARAD BLANDON Reason For Exam: eval for CT guided drainage parvin-rectal abscess Notified:: - Comment:: unable to locate in OR with A Primary care physician: [facility]LEBOT[facility]Y SPECIALIST Hospitalization Reason for admission: Perirectal abscess Condition: Stable Hospital course: 30 YO Male with Perirectal Abscess, SMO status post attempted surgical I&D of perirectal abscess. Patient abscess location makes it not amenable for surgical drainage. Patient currently pending IR intervention. Patient resting comfortably. Patient denies pain. No reported nursing events. Patient denies fever, rectal discharge. 03/13: Continue supportive care, ID plans to tailor it to be low cost given his financial difficulties preventing him from taking antibiotics previously based on culture. Case management will assist where possible Patient reports improving perirectal/left gluteal pain. No significant output from the drain. Remains afebrile and leukocytosis resolving. Surgical cultures pending. ID added Flagyl to vancomycin and cefepime. 03/14: Patient seen and examined, no new complaints. ID came later to evaluate patient with recommendation of "Would DC with Cipro 750mg q12h (free at [facility]) and Bactrim DS q12h (also free at [facility]) for 3 weeks" SURGICAL CULTURE SHOWING CELESTINE ALBICANS Spoke with vascular doctor reports to have patient follow-up with general surgery in a week and also to repeat a CT of the pelvis for new baseline prior to discharge. Patient is anticipated for discharge in a.m. tomorrow. Have called general surgery got voicemail will call again. 03/15: Patient seen and examined CT still shows abscess with slight decrease. I did discuss with the patient importance of keeping drain intact and following up with the prescribed doctors. He verbalized understanding. I also discussed with him that his medications are free at [facility] and he also got a good Rx card to help with his pain medication. He verbalized understanding he has not had any more fever at this time. He is cleared for discharge (1) Parvin-rectal abscess Current Visit: Yes Status: Acute Plan to address problem: Worsening left perirectal abscess noted on CT. General surgery team consulted and attempted I&D unsuccessfully. Interventional radiology was able to drain 25 mill of purulent fluid and they drain is placed. Currently no significant drain output. Clinically improving with the resolution of her leukocytosis. Patient remains afebrile. ID consulted and added Flagyl to vancomycin and cefepime. Surgical cultures pending. (2) severe obesity at risk for hypoventilation syndrome Current Visit: No Status: Acute Plan to address problem: Balanced diet, increase physical activity at discharge, outpatient pulmonary follow-up for sleep study, outpatient bariatric surgery follow-up. [3] super morbid obesity Disposition: 01 HOME / SELF CARE / HOMELESS Final Discharge Diagnosis (Prints w/discharge instructions): Perirectal abscess Time spent for discharge: 35 minutes Core Measure Documentation - Palliative Care Palliative Care/ Comfort Measures: Not Applicable - Core Measures Any of the following diagnoses?: none Exam - Physical Exam Narrative exam: General appearance: Present: no acute distress, well-nourished, obese, other (Extremely obese) - EENT Eyes: Present: PERRL ENT: hearing intact - Neck Neck: Present: supple - Respiratory Respiratory effort: normal - Cardiovascular Rhythm: regular - Extremities Extremities: No edema - Abdominal General gastrointestinal: soft, non-tender, SHANON drain in place - Neurologic Neurologic: no focal deficits - Constitutional Vitals: Temp Pulse Resp BP Pulse Ox 98.7 F 70 18 179/97 95 03/14/21 12:05 03/14/21 12:05 03/14/21 12:05 03/14/21 12:05 03/14/21 12:05 Plan Activity: advance as tolerated, fall precautions Diet: regular Special Instructions: record daily BP diary Plan of Treatment: Antibiotics can be obtained for free at [facility]. STRONGLY RECOMMEND OUT PATIENT ABIMAEL STUDY Follow up with: AYAAN LAND MD [Staff Physician] - 7 Days PRIMARY CARE,MD [Primary Care Provider] - 3-5 Days PHAM BUENO MD [Staff Physician] - 7 Days Prescriptions: Sulfamethoxazole/Trimethoprim [Bactrim DS TAB] 1 each PO BID #42 tablet Ciprofloxacin HCl [Ciprofloxacin TAB] 750 mg PO DAILY #21 tablet oxyCODONE /ACETAMINOPHEN [Percocet 5/325 mg] 1 tab PO Q12H PRN #20 tablet PRN Reason: Pain, Moderate (4-6)
--- NOTE | 2021-03-14 19:03 | Cat Scan Report ---
CT pelvis w con INDICATION / CLINICAL INFORMATION: ALFREDO-RECTAL ABSCESS 100 ML OMNI 300 . Rectal pain TECHNIQUE: Routine CT pelvis with contrast All CT scans at this location are performed using CT dose reduction f or ALARA by means of automated exposure control. COMPARISON: 03/08/2021 FINDINGS: Pelvis: When compared to the prior exam a percutaneous catheter has been placed into the multiloculat ed perianal collection. The collection has slightly decreased in size in the interim with the largest collection measuring 7.2 x 3.8 cm previously measuring 7.6 x 3.8 cm. A smaller collection superiorly into the left of the distal rectum currently measures 4.4 x 3.3 cm this previously measured about 5. 7 x 4.0 cm. Mild inguinal adenopathy persists. Urinary bladder is unremarkable. No free pelvic fluid identified. IMPRESSION: Slight decrease in size of the perianal/perirectal abscess collections when compared to 1 status post placement of a percutaneous abscess drainage catheter. The catheter appears to s till be within the larger collection. Signer Name: Tr Mock MD Signed: 03/14/2021 6:59 PM Workstation Name: [id number]
[2021-03-14] MEDS: FAMOTIDINE 20 MG TAB PO SCH (21:45)
[2021-03-15] MEDS: metroNIDAZOLE/NS 500 MG/100 ML 500 MG/100 ML BAG IV SCH ×2 (00:47→10:01)
[2021-03-15] MEDS: KETOROLAC 30 MG/1 ML INJ IV SCH ×2 (00:47→06:27)
[2021-03-15] MEDS: CEFEPIME/NS 2 GM/100 ML 2 GM/100 ML BAG IV SCH ×2 (03:27)
[2021-03-15 05:24] VITALS: BP 165/75
[2021-03-15] MEDS: HEPARIN 5,000 UNIT/1 ML VIAL SUB-Q SCH (06:18)
[2021-03-15] MEDS: VANCOMYCIN 2,000 MG in SODIUM CHLORIDE 0.9% 500 ML 500 ML IV SCH (06:18)
[2021-03-15] MEDS: oxyCODONE /ACETAMINOPHEN 5-325MG TAB PO PRN (06:41)
[2021-03-15] MEDS: FAMOTIDINE 20 MG TAB PO SCH (10:01)
--- NOTE | 2021-03-15 15:28 | Progress Note ---
Assessment and Plan Cultures: Urine culture no growth so far A/P: 30-year-old man past medical history morbid obesity, hypertension admitted with worsening perirectal abscess #Perirectal abscess: s/p surgical exploration and IR drainage. #Leukocytosis: Secondary to sepsis. #Morbid obesity Recs: -Adjusted antibiotics to vancomycin, cefepime, Flagyl. -We will plan on culture directed therapy for discharge. We will attempt to tailor it to be low cost given his financial difficulties preventing him from taking antibiotics previously -Would DC with Cipro 750mg q12h (free at [facility]) and Bactrim DS q12h (also free at [facility]) for 3 weeks. Thank you for the consult, we will continue to follow. Daniela Richard MD [facility] ([facility]) O: [phone] F: [phone] Subjective Date of service: 03/15/21 Interval history: Afebrile, normal white count. Imaging personally reviewed: Pelvis CT: Slight decrease in size of abscess Objective - Exam Narrative Exam: Physical Exam: Constitutional: Alert, cooperative. No acute distress Head, Ears, Nose: Normocephalic, atraumatic. External ears, nose normal Eyes: Conjunctivae/corneas clear. No icterus. No ptosis. Neck: Supple, no meningeal signs Oral: dentition fair, no thrush Cardiovascular: S1, S2 normal. Respiratory: Good air entry, clear to auscultation bilaterally GI: Soft, non-tender; bowel sounds normal. No peritoneal signs. Musculoskeletal: Perirectal exam deferred Skin: No rash or abscess Hem/Lymphatic: No palpable cervical or supraclavicular nodes. No lymphangitis Psych: Mood ok. Affect normal Neurological: Awake, alert, oriented. No gross abnormality - Constitutional Vitals: Vital Signs Temp Pulse Resp BP Pulse Ox 98.6 F 67 20 165/75 93 03/15/21 05:23 03/15/21 06:33 03/15/21 05:23 03/15/21 06:33 03/15/21 05:23 Temperature -Last 24 Hours Temperature 98.6 F Temperature 99.1 F Temperature 98.5 F - Labs CBC & Chem 7: 03/12/21 09:27 03/14/21 07:35
--- NOTE | 2021-03-21 14:14 | Cat Scan Report ---
PLEASE OPERATIVE REPORT FROM 03-12-21 @1123 [facility]
== END 2021-03-15 11:00 | disposition home or self-care (01) | DRG 872 ==
LOC: ED 15:54 → 3A 21:37
PROVIDERS: ADMIT Hospitalist; ATTEND Internal Medicine
PROC: 0Y910ZZ Drainage of Left Buttock, Open Approach (ICD-10-PCS; principal; 2021-03-09)
PROC: 0D9P30Z Drainage of Rectum with Drainage Device, Percutaneous Approach (ICD-10-PCS; 2021-03-12)
DX: A41.9 Sepsis, unspecified organism (principal); K61.1 Rectal abscess; E66.2 Morbid (severe) obesity with alveolar hypoventilation; Z68.43 Body mass index [BMI] 50.0-59.9, adult; I10 Essential (primary) hypertension; F17.200 Nicotine dependence, unspecified, uncomplicated; K21.9 Gastro-esophageal reflux disease without esophagitis
CPT/HCPCS: 10160; 36415; 72193; 77012; 80048; 80202; 81001; 85007; 85025; 87075; 87086; 87116; G0378; J7070; C1769; J0692; J1170; J1644; J1885; J1956; J2250; J2270; J2370; J2405; J2543; J2704; J3010; J3370; J7030; J7040; J7120; Q9967